=== PATIENT | female | born 1955 | race Caucasian/White ===

== ENCOUNTER 2020-04-17 07:01 | Outpatient (REF) | payer MEDICARE, SELFPAY ==
[2020-04-17 14:04] LABS: Cholesterol 186 mg/dL; HDL Cholesterol 39 mg/dL; LDL Cholesterol Calculated 112 mg/dl; Triglycerides 178 mg/dL
[2020-04-17 14:05] LABS: Alanine Aminotransferase 28 U/L (0-31); Albumin Level 4.2 g/dL (3.5-5.0); Alkaline Phosphatase 85 U/L (39-117); Anion Gap 10 (12-20); Aspartate Amino Transferase 27 U/L (5-31); Bilirubin Total 0.5 mg/dL (0.0-1.0); Blood Urea Nitrogen 18 mg/dL (9-16); Calcium 8.4 mg/dL (8.4-10.2); Carbon Dioxide 32 mmol/L (22-29); Chloride 102 mmol/L (96-108); Estimated Glomerular Filt Rate > 60; Glucose Fasting 88 mg/dL (60-99); Potassium 4.1 mmol/l (3.3-5.1); Sodium 140 mmol/L (135-145); Total Protein 6.6 g/dL (6.5-8.0)
[2020-04-17 14:26] LABS: Vitamin D 25-OH Total 43.8 ng/mL (>30)
[2020-04-17 14:40] LABS: TSH reflex Free T4 2.16 mIU/mL (0.32-4.0)
[2020-04-20 20:26] LABS: Calcium (PTHI) 9.3 mg/dL (8.6-10.4); PTHI 33 pg/mL (14-64)
[2020-04-23 16:42] LABS: N-Telopeptide 30 (see note); NTXCreaRU 71 mg/dL (20-275)
== END 2020-04-17 07:02 | disposition home or self-care (01) ==
LOC: HO.HMGCLDS 07:01
PROVIDERS: PCP Internal Medicine; Visit Provider Internal Medicine
DX: E04.2 Nontoxic multinodular goiter (principal); E78.2 Mixed hyperlipidemia; I10 Essential (primary) hypertension; E55.9 Vitamin D deficiency, unspecified; M85.852 Other specified disorders of bone density and structure, left thigh; Z86.39 Personal history of other endocrine, nutritional and metabolic disease; Z90.09 Acquired absence of other part of head and neck
CPT/HCPCS: 80053; 80061; 82306; 82523; 83970; 84100; 84443

== ENCOUNTER 2020-04-21 10:50 | Outpatient (REF) | payer MEDICARE, SELFPAY ==
--- NOTE | 2020-04-21 10:56 | MM_ITS ---
EXAMINATION: BONE DENSITOMETRY CLINICAL INDICATION: Osteopenia of multiple sites. COMPARISON: Previous BD dated 11/16/2017 and baseline BD dated 03/24/2015 (spine and left hip). Baseline BD dated 11/16/2017 (left forearm radius 33%). TECHNIQUE: Using a [employer] DXA System (software version: 13.1) manufactured by [employer], dual-energy x-ray absorptiometry was performed of the lumbar spine, left hip, and left forearm radius 33%. The images are of good technical quality. Summary results are attached. FINDINGS: AP SPINE L1-L4: Current: BMD 1.138 g/cm2, Z-score 1.1, T-score -0.3, normal, 3.2% decrease from previous, 3.1% increase from baseline (<5% change is not significant). Prior: BMD 1.176 g/cm2. Baseline: BMD 1.104 g/cm2. LEFT FEMUR, NECK: Current: BMD 0.815 g/cm2, Z-score -0.1, T-score -1.6, osteopenia. Prior: BMD 0.837 g/cm2. Baseline: BMD 0.824 g/cm2. LEFT FEMUR, TOTAL: Current: BMD 0.939 g/cm2, Z-score 0.7, T-score -0.5, normal, 2.3% increase from previous, 8.3% increase from baseline (<5% change is not significant). Prior: BMD 0.918 g/cm2. Baseline: BMD 0.867 g/cm2. LEFT FOREARM RADIUS 33%: BMD 0.783 g/cm2, Z-score 0.5, T-score -1.1, osteopenia, 1.6% increase from baseline (<5% change is not significant). Baseline: BMD 0.771 g/cm2. IDENTIFIED RISK FACTORS: Hyperparathyroidism, menopause. HISTORY OF FRACTURE: None listed. MEDICATIONS: Calcium supplements or multivitamin, vitamin D. MM/XR DEXA appendicular skeleton IMPRESSION: 1. DIAGNOSIS: Osteopenia based on the lowest T-score value of -1.6 in the femoral neck applying World Health Organization criteria. 2. 10-YEAR FRACTURE RISK PREDICTION, FRAX: Major osteoporotic fracture (clinical spine, forearm, hip or shoulder) 9.5%. Hip fracture 1.2%. 3. Treatment Recommendations: NOF guidelines recommend consideration for treatment in postmenopausal women and men age 50 and older presenting with the following: -A hip or vertebral (clinical or morphometric) fracture. -T-score less than or equal to -2.5 at the femoral neck or spine after appropriate evaluation to exclude secondary causes. -Low bone mass at the hip or spine and a 10-year fracture probability by FRAX of greater than or equal to 3% for hip fracture or greater than or equal to 20% for major osteoporotic fracture based on the [place] adapted WHO algorithm. 4. Other Recommendations: All treatment decisions require clinical judgment and consideration of individual patient factors, including patient preferences, comorbidities, previous drug use, risk factors not captured in the FRAX model (e.g. frailty, falls, vitamin D deficiency, increased bone turnover, interval significant decline in bone density) and possible under or overestimation of fracture risk by FRAX. Additional medical evaluation for secondary cause of low bone mineral density may be appropriate. FUTURE SCAN RECOMMENDATION: People with diagnosed cases of osteoporosis or at high risk for fracture should have regular bone mineral density tests. For patients eligible for Medicare, routine testing is allowed once every 2 years. The testing frequency can be increased to one year for patients who have rapidly progressing disease, those who are receiving or discontinuing medical therapy to restore bone mass, or have additional risk factors.
== END 2020-04-21 10:51 | disposition home or self-care (01) ==
LOC: HO.MAMMO 10:50
PROVIDERS: Visit Provider Internal Medicine
DX: M85.89 Other specified disorders of bone density and structure, multiple sites (principal); Z86.39 Personal history of other endocrine, nutritional and metabolic disease
CPT/HCPCS: 77081

== ENCOUNTER 2020-08-24 08:56 | Outpatient (REF) | payer MEDICARE, SELFPAY ==
[2020-08-24 11:47] LABS: Alanine Aminotransferase 22 U/L (0-31); Anion Gap 12 (12-20); Aspartate Amino Transferase 24 U/L (5-31); Blood Urea Nitrogen 19 mg/dL (9-16); Calcium 9.2 mg/dL (8.4-10.2); Carbon Dioxide 31 mmol/L (22-29); Chloride 101 mmol/L (96-108); Cholesterol 212 mg/dL; Estimated Glomerular Filt Rate > 60; Glucose Fasting 91 mg/dL (60-99); HDL Cholesterol 43 mg/dL; LDL Cholesterol Calculated 125 mg/dl; Potassium 3.8 mmol/L (3.3-5.1); Sodium 140 mmol/L (135-145); Triglycerides 221 mg/dL
== END 2020-08-24 08:57 | disposition home or self-care (01) ==
LOC: HO.HMGCLDS 08:56
PROVIDERS: PCP Internal Medicine; Visit Provider Internal Medicine
DX: E78.5 Hyperlipidemia, unspecified (principal); I10 Essential (primary) hypertension
CPT/HCPCS: 36415; 80048; 80061; 84450; 84460

== ENCOUNTER 2021-03-05 08:59 | Outpatient (REF) | payer MEDICARE, SELFPAY ==
[2021-03-05 12:03] LABS: Alanine Aminotransferase 27 U/L (0-31); Aspartate Amino Transferase 24 U/L (5-31); Cholesterol 201 mg/dL; HDL Cholesterol 47 mg/dL; LDL Cholesterol Calculated 131 mg/dl; Triglycerides 117 mg/dL
== END 2021-03-05 09:00 | disposition home or self-care (01) ==
LOC: HO.HMGCLDS 08:59
PROVIDERS: PCP Internal Medicine; Visit Provider Internal Medicine
DX: E78.2 Mixed hyperlipidemia (principal)
CPT/HCPCS: 36415; 80061; 84450; 84460

== ENCOUNTER 2021-09-02 08:04 | Outpatient (REF) | payer MEDICARE, SELFPAY ==
[2021-09-02 12:04] LABS: Alanine Aminotransferase 25 U/L (0-31); Anion Gap 12 (12-20); Aspartate Amino Transferase 23 U/L (5-31); Blood Urea Nitrogen 17 mg/dL (9-16); Calcium 9.6 mg/dL (8.4-10.2); Carbon Dioxide 28 mmol/L (22-29); Chloride 102 mmol/L (96-108); Cholesterol 197 mg/dL; Estimated Glomerular Filt Rate > 60; Glucose Fasting 99 mg/dL (60-99); HDL Cholesterol 44 mg/dL; LDL Cholesterol Calculated 123 mg/dl; Potassium 4.1 mmol/L (3.3-5.1); Sodium 138 mmol/L (135-145); Triglycerides 151 mg/dL
[2021-09-02 14:57] LABS: Vitamin D 25-OH Total 51.4 ng/mL (>30)
== END 2021-09-02 08:05 | disposition home or self-care (01) ==
LOC: HO.HMGCLDS 08:04
PROVIDERS: PCP Internal Medicine; Visit Provider Internal Medicine
DX: E78.2 Mixed hyperlipidemia (principal); I10 Essential (primary) hypertension; M85.80 Other specified disorders of bone density and structure, unspecified site; Z78.0 Asymptomatic menopausal state
CPT/HCPCS: 36415; 80048; 80061; 82306; 84450; 84460

== ENCOUNTER 2022-03-22 06:49 | Outpatient (REF) | payer MEDICARE, SELFPAY ==
[2022-03-22 11:43] LABS: Alanine Aminotransferase 17 U/L (0-31); Anion Gap 13 (12-20); Aspartate Amino Transferase 21 U/L (5-31); Blood Urea Nitrogen 13 mg/dL (9-16); Calcium 9.4 mg/dL (8.4-10.2); Carbon Dioxide 28 mmol/L (22-29); Chloride 101 mmol/L (96-108); Cholesterol 209 mg/dL; Estimated Glomerular Filt Rate > 60; Glucose Fasting 97 mg/dL (60-99); HDL Cholesterol 46 mg/dL; LDL Cholesterol Calculated 130 mg/dl; Sodium 138 mmol/L (135-145); Triglycerides 168 mg/dL
== END 2022-03-22 06:50 | disposition home or self-care (01) ==
LOC: HO.HMGCLDS 06:49
PROVIDERS: PCP Internal Medicine; Visit Provider Internal Medicine
DX: E78.2 Mixed hyperlipidemia (principal); I10 Essential (primary) hypertension
CPT/HCPCS: 36415; 80048; 80061; 84450; 84460

== ENCOUNTER 2022-04-22 12:53 | Outpatient (REF) | payer MEDICARE, SELFPAY ==
--- NOTE | ~2022-04-22 | MM_ITS ---
EXAMINATION: BONE DENSITOMETRY CLINICAL INDICATION: Osteopenia. COMPARISON: Previous BD dated 04/21/2020 and baseline BD dated 03/24/2015, spine and left hip; 11/16/2017, left forearm radius 33%. TECHNIQUE: Using a [employer] DXA System (software version: 13.1) manufactured by [email or web address], dual-energy x-ray absorptiometry was performed of the lumbar spine, left hip, and left forearm radius 33%. The images are of good technical quality. Summary results are attached. FINDINGS: AP SPINE L1-L4 (excluding L3): The data of L1-L4 has been changed to exclude the L3 vertebral body, because degenerative changes at this level may cause overestimation of lumbar spine density. Current: BMD 1.098 g/cm2, Z-score 0.9, T-score -0.6, normal, 0.7% decrease from previous, 4.1% increase from baseline (<5% change is not significant). Prior: BMD 1.106 g/cm2. Baseline: BMD 1.055 g/cm2. LEFT FEMUR, NECK: Current: BMD 0.759 g/cm2, Z-score -0.4, T-score -2.0, osteopenia. Prior: BMD 0.815 g/cm2. Baseline: BMD 0.824 g/cm2. LEFT FEMUR, TOTAL: Current: BMD 0.842 g/cm2, Z-score 0.0, T-score -1.3, osteopenia, 10.3% decrease from previous, 2.9% decrease from baseline (<5% change is not significant). Prior: BMD 0.939 g/cm2. Baseline: BMD 0.867 g/cm2. LEFT FOREARM RADIUS 33%: BMD 0.810 g/cm2, Z-score 1.0, T-score -0.7, normal, 3.4% increase from previous, 5.1% increase from baseline (<5% change is not significant). Prior: BMD 0.783 g/cm2. Baseline (11/16/2017): BMD 0.771 g/cm2. IDENTIFIED RISK FACTORS: Hyperparathyroidism, menopause. HISTORY OF FRACTURE: None listed. MEDICATIONS: Calcium supplements or multivitamin, vitamin D. MM/XR DEXA appendicular skeleton IMPRESSION: 1. DIAGNOSIS: Osteopenia based on the lowest T-score value of -2.0 in the femoral neck applying World Health Organization criteria. 2. 10-YEAR FRACTURE RISK PREDICTION, FRAX: Major osteoporotic fracture (clinical spine, forearm, hip or shoulder) 11.6%. Hip fracture 2.1%. 3. Treatment Recommendations: NOF guidelines recommend consideration for treatment in postmenopausal women and men age 50 and older presenting with the following: -A hip or vertebral (clinical or morphometric) fracture. -T-score less than or equal to -2.5 at the femoral neck or spine after appropriate evaluation to exclude secondary causes. -Low bone mass at the hip or spine and a 10-year fracture probability by FRAX of greater than or equal to 3% for hip fracture or greater than or equal to 20% for major osteoporotic fracture based on the [place] adapted WHO algorithm. 4. Other Recommendations: All treatment decisions require clinical judgment and consideration of individual patient factors, including patient preferences, comorbidities, previous drug use, risk factors not captured in the FRAX model (e.g. frailty, falls, vitamin D deficiency, increased bone turnover, interval significant decline in bone density) and possible under or overestimation of fracture risk by FRAX. Additional medical evaluation for secondary cause of low bone mineral density may be appropriate. FUTURE SCAN RECOMMENDATION: People with diagnosed cases of osteoporosis or at high risk for fracture should have regular bone mineral density tests. For patients eligible for Medicare, routine testing is allowed once every 2 years. The testing frequency can be increased to one year for patients who have rapidly progressing disease, those who are receiving or discontinuing medical therapy to restore bone mass, or have additional risk factors.
== END 2022-04-22 12:54 | disposition home or self-care (01) ==
LOC: HO.MAMMO 12:53
PROVIDERS: PCP Internal Medicine; Visit Provider Internal Medicine
DX: Z13.820 Encounter for screening for osteoporosis (principal); M85.852 Other specified disorders of bone density and structure, left thigh; Z78.0 Asymptomatic menopausal state
CPT/HCPCS: 77081

== ENCOUNTER 2022-08-22 08:44 | Outpatient (REF) | payer MEDICARE, SELFPAY ==
[2022-08-22 12:43] LABS: Alanine Aminotransferase 21 U/L (0-31); Anion Gap 12 (12-20); Aspartate Amino Transferase 22 U/L (5-31); Blood Urea Nitrogen 14 mg/dL (9-16); Calcium 9.1 mg/dL (8.4-10.2); Carbon Dioxide 29 mmol/L (22-29); Chloride 103 mmol/L (96-108); Cholesterol 203 mg/dL; Estimated Glomerular Filt Rate > 60; Glucose Fasting 100 mg/dL (60-99); HDL Cholesterol 43 mg/dL; LDL Cholesterol Calculated 123 mg/dl; Sodium 140 mmol/L (135-145); Triglycerides 185 mg/dL; Vitamin D 25-OH Total 50.9 ng/mL (>30)
== END 2022-08-22 08:45 | disposition home or self-care (01) ==
LOC: HO.HMGCLDS 08:44
PROVIDERS: PCP Internal Medicine; Visit Provider Internal Medicine
DX: E78.2 Mixed hyperlipidemia (principal); M85.80 Other specified disorders of bone density and structure, unspecified site; Z78.0 Asymptomatic menopausal state; I10 Essential (primary) hypertension
CPT/HCPCS: 36415; 80048; 80061; 82306; 84450; 84460

== ENCOUNTER 2023-02-20 07:42 | Outpatient (REF) | payer MEDICARE, SELFPAY ==
[2023-02-20 12:03] LABS: Alanine Aminotransferase 19 U/L (0-31); Anion Gap 12 (12-20); Aspartate Amino Transferase 23 U/L (5-31); Blood Urea Nitrogen 14 mg/dL (9-16); Calcium 9.7 mg/dL (8.4-10.2); Carbon Dioxide 29 mmol/L (22-29); Chloride 104 mmol/L (96-108); Cholesterol 198 mg/dL (<200); Estimated Glomerular Filt Rate > 60; Glucose Fasting 103 mg/dL (60-99); HDL Cholesterol 44 mg/dL (>40); LDL Cholesterol Calculated 116 mg/dL (<100); Potassium 4.7 mmol/L (3.3-5.1); Sodium 140 mmol/L (135-145); Triglycerides 194 mg/dL (<150)
== END 2023-02-20 07:43 | disposition home or self-care (01) ==
LOC: HO.HMGCLDS 07:42
PROVIDERS: PCP Internal Medicine; Visit Provider Internal Medicine
DX: E78.2 Mixed hyperlipidemia (principal); I10 Essential (primary) hypertension
CPT/HCPCS: 36415; 80048; 80061; 84450; 84460

== ENCOUNTER 2023-02-22 10:40 | Outpatient (AMB) | payer MEDICARE, SELFPAY ==
--- NOTE | 2023-02-22 10:53 | A.OFFPC_ITS ---
Vital Signs 02/22/23 10:59 Height 5 ft 5 in Weight 163 lb BMI 27.1 BP 136/82 Blood Pressure Location Rt brachial Position Sitting Pulse 80 Pulse Source Pulse Oximeter Pulse Oximetry (%) 98 Intake Visit Reasons: 6m follow up after fasting labs Intake Note: Pt is here today for her 6 mo. f/u labs Allergies amoxicillin Allergy (Unknown, Verified 02/22/23 11:13) hives lisinopril Adverse Reaction (Unknown, Verified 02/22/23 11:13) cough Medication List - Last Reconciled 02/22/23 by Mary Wood MD atenolol 50 mg PO DAILY atorvastatin 10 mg PO DAILY calcium citrate 200 mg PO DAILY cholecalciferol (vitamin D3) 50 mcg PO DAILY fluoxetine 20 mg PO DAILY hydroxyzine HCl 10 mg PO BID PRN multivit with min-folic acid 200 mcg (Adult Multivitamin Gummies) tabs PO Tobacco use date assessed: 08/24/22 Fall risk assessment: No Falls in past year Last assessed Fall Risk: 02/22/23 Dental Screening Dental Screen Date: 02/22/23 Did you have a dental visit in the last 12 months?: Yes Did you have a dental problem in the last 6 months where you did not have access to dental care?: No Was dental information given to patient?: Patient has dentist HPI 6m follow up after fasting labs HPI Details 67-year-old lady here today for follow-u p on her hypertension, currently on atenolol 50 mg daily; and follow-up on her dyslipidemia, currently on atorvastatin 10 mg daily. She has been compliant with taking her medications , has been following recommended diet and has been trying to stay active. Latest fasting labs done showed lipids within normal limit with fasting glucose in the prediabetic range and blood pressure is better controlled on higher dose of atenolol. Has been feeling well, with no new complaints at present time. FORMERLY [facility] Medical History Anxiety and depression History of primary hyperparathyroidism Mixed dyslipidemia History of invasive breast cancer Osteopenia Menopause Essential hypertension Nontoxic multinodular goiter Surgical History Hx of colonoscopy History of partial thyroidectomy History of parathyroidectomy Family History Father Skin cancer HTN (hypertension) Diabetes mellitus Mother Stroke Brother Depression Brother No problems noted. Sister No problems noted. Sister No problems noted. Son No problems noted. Daughter No problems noted. Social History Housing: House Alcohol intake: never Patient Tobacco Use Status: Never used Tobacco e-Cigarette/Vaping Use: Never Used Second Hand Smoke Exposure: No Current occupational status: retired Cognitive needs: No Hearing needs: No Vision needs: Yes Questionnaire PHQ-9 Over the last 2 weeks, how often have you been bothered by any of the following problems? Depression Screening Interpretation: Negative Source: Developed by Drs. Jarvis Sagastume, Mary Lara, Ric Alberts and colleagues, with an educational tom from [employer]. Thrive Questionnaire Date Thrive assessed: 08/24/22 HEATHER-7 AMB Questionnaire HEATHER-7 Date HEATHER - 7 assessed: 08/24/22 Source: Developed by Drs. Jarvis Sagastume, Mary Lara, Ric Alberts and colleagues, with an educational tom from [employer]. Review of Systems Const Denies body aches, Denies fatigue, Denies fever(s), Denies headache(s) and Denies weakness Eyes Details: utd with eye exam , sees Dr Sewell Denies change in vision, Denies eye discharge and Denies itchy eyes ENT Denies dizziness, Denies headache(s), Denies nasal congestion, Denies nasal discharge and Denies sore throat Card Denies chest pain, Denies lightheadedness, Denies palpitations and Denies dyspnea Resp Denies chest congestion, Denies cough, Denies dyspnea and Denies wheezing GI Denies abdominal pain, Denies change in bowel habits and Denies heartburn Denies urinary frequency, Denies dysuria and Denies urinary urgency Musc Denies back pain, Denies myalgias, Denies arthralgias and Denies muscle weakness [facility] Details[facility] , due again in 02/2023 Neuro Denies dizziness, Denies headache(s) and Denies weakness Psych Reports no additional complaints Endo Denies fatigue, Denies polydipsia, Denies polyuria and Denies palpitations Paddy/Lymph Reports no additional complaints Aller/Immun Denies itchy eyes, Denies seasonal rhinorrhea and Denies wheezing Physical exam (Primary Care) Vital Signs: Last Vital Signs Pulse 80 02/22/23 10:59 BP 136/82 02/22/23 10:59 Pulse Ox 98 02/22/23 10:59 BMI result Body Mass Index 27.1 Tobacco/Smoking Status: Tobacco use Status Tobacco use date assessed 08/24/22 02/22/23 10:55 Patient Tobacco Use Status Never used Tobacco 02/22/23 10:55 e-Cigarette/Vaping Use Never Used 02/22/23 10:55 Depression Screening Interpretation: Negative Thrive Assessment: Date of Thrive Assessment Date Thrive assessed 08/24/22 02/22/23 10:55 Const Other: Alert oriented x3, no acute distress noted, ambulatory with normal gait Orientation/consciousness: patient oriented x3 HENMT Head: Yes normocephalic Ears: Abnormal EAC present excessive cerumen bilateral General nose exam: Normal external nose present and No nasal discharge present Face and sinus: Yes face symmetric Mouth: Normal oral and palatal mucosa present, oropharynx normal and moist mucous membranes Eyes General: appearance normal, both eyes and all related structures Neck Neck: Yes full ROM, Yes no lymphadenopathy and Yes supple Chest Breast/axilla palpation: normal palpation of the breasts and normal palpation of the axillae Resp Auscultation: clear to auscultation bilaterally Cardio Other: S1-S2 present regular rate and rhythm GI Other: Normal bowel sounds, soft, nontender, no mass palpated General: Yes no CVA tenderness and Yes deferred Back/Spine/Pelvis Back: no CVA tenderness and No back tenderness Skin General skin exam: no rashes or lesions noted Neuro General: patient oriented x3, gait normal, tone normal, moves all extremities, Normal light touch and pain sensation, no focal motor deficits and CN's II-XI intact bilaterally Extrem General: Yes full ROM, Yes no joint enlargement, Yes no pedal edema, Yes no calf tenderness and Yes normal gait Psych Appearance: grossly normal and well kempt Mental Status: mental status grossly normal Speech and movement: Normal speech and movement present Affect: normal affect Attitude: cooperative Thought process: Normal thought process present Thought content: Normal thought content present Results Reviewed Results Reviewed: ENTERED: 02/20/236427 [facility] DR: ORDERED: Met Prof Fast, AST, ALT, Lipid Panel Test Result Flag Reference Site Sodium 140 135-145 mmol/L Potassium 4.7 3.3-5.1 mmol/L CL 104 96-108 mmol/L CO2 29 22-29 mmol/L Gap 12 12-20 BUN 14 9-16 mg/dL Creat 0.77 0.5-1.4 mg/dL EGFR > 60 NOTE: For -[place] individuals, multiply the result by 1.210. Chronic Kidney Disease: Estimated GFR < 60 mL/min/1.73m2 Severe Kidney Disease: Estimated GFR < 15 mL/min/1.73m2 FBS 103 H 60-99 mg/dL A fasting glucose from 100-125 mg/dl is considered impaired (pre-diabetes). CA 9.7 # 8.4-10.2 mg/dL AST (GOT) 23 5-31 U/L ALT (GPT) 19 0-31 U/L Triglyceride 194 H <150 mg/dL Desirable Triglyceride: less than 150 mg/dL Borderline High Triglyceride 150-199 mg/dL High Triglyceride: 200-499 mg/dL Very High Triglyceride: greater than or equal to 5OO mg/dL Cholesterol 198 <200 mg/dL Desirable Cholesterol: less than 200 mg/dL Borderline High Cholesterol: 200-239 mg/dL High Cholesterol: greater than 239 mg/dL LDL Calculated 116 H <100 mg/dL Desirable LDL: less than 100 mg/dL Near Optimal/Above Optimal LDL: 110-129 mg/dL Borderline High LDL: 130-159 mg/dL High LDL: 160-189 mg/dL Very High LDL: greater than or equal to 190 mg/dL HDL 44 >40 mg/dL Desirable HDL: greater than 40 mg/dL Assessment and Plan Assessment & Plan (1) Mixed dyslipidemia: Code(s): E78.2 - Mixed hyperlipidemia Plan: Reviewed recent fasting lipid profile with patient with levels . Continue with atorvastatin 10 mg daily , in addition to adherence to low-cholesterol diet and regular exercise, at least 30 minutes 3 to 4 times a week. Advised patient to make healthy food choices, eat more fruits, vegetables, whole grains, wild caught fish and low-fat dairy. Limit amount of meat and fried or fatty food products, as well as processed foods and fast foods. Follow-up scheduled with repeat fasting lipid panel in 6 months. (2) Essential hypertension: Code(s): I10 - Essential (primary) hypertension Plan: Blood pressure at goal of less than 130/80. Continue with current medication. Reinforced importance of following a low sodium diet, getting regular exercise, and lowering stress levels. (3) Anxiety and depression: Code(s): F41.9 - Anxiety disorder, unspecified; F32.A - Depression, unspecified Plan: Stable and controlled on fluoxetine 20 mg daily and takes hydroxyzine as needed for anxiety attack (4) Osteopenia: Code(s): M85.80 - Other specified disorders of bone density and structure, unspecified site Qualifiers: Osteopenia location: hip Laterality: left Qualified Code(s): M85.852 - Other specified disorders of bone density and structure, left thigh Plan: Followed by Dr. Bradford currently on calcium citrate and cholecalciferol supplement. Encouraged to do regular weight-bearing exercise. Up-to-date with her DEXA scan done last year (5) Nontoxic multinodular goiter: Comment: followed by [facility] [place] end[place] Code(s): E04.2 - Nontoxic multinodular goiter Plan: Followed by endocrine clinic Orders: Orders Hemoglobin A1c 08/11/23 E04.2 - Nontoxic multinodular goiter, E78.2 - Mixed hyperlipidemia, F32.A - Depression, unspecified, F41.9 - Anxiety disorder, unspecified, I10 - Essential (primary) hypertension, M85.80 - Other specified disorders of bone density and structure, unspecified site, Z78.0 - Asymptomatic menopausal state Basic Metabolic Panel Fasting 08/11/23 E04.2 - Nontoxic multinodular goiter, E78.2 - Mixed hyperlipidemia, F32.A - Depression, unspecified, F41.9 - Anxiety disorder, unspecified, I10 - Essential (primary) hypertension, M85.80 - Other specified disorders of bone density and structure, unspecified site, Z78.0 - Asymptomatic menopausal state Lipid Panel 08/11/23 E04.2 - Nontoxic multinodular goiter, E78.2 - Mixed hyperlipidemia, F32.A - Depression, unspecified, F41.9 - Anxiety disorder, unspecified, I10 - Essential (primary) hypertension, M85.80 - Other specified disorders of bone density and structure, unspecified site, Z78.0 - Asymptomatic menopausal state Alanine Aminotransferase 08/11/23 E04.2 - Nontoxic multinodular goiter, E78.2 - Mixed hyperlipidemia, F32.A - Depression, unspecified, F41.9 - Anxiety disorder, unspecified, I10 - Essential (primary) hypertension, M85.80 - Other specified disorders of bone density and structure, unspecified site, Z78.0 - Asymptomatic menopausal state Aspartate Amino Transferase 08/11/23 E04.2 - Nontoxic multinodular goiter, E78.2 - Mixed hyperlipidemia, F32.A - Depression, unspecified, F41.9 - Anxiety disorder, unspecified, I10 - Essential (primary) hypertension, M85.80 - Other specified disorders of bone density and structure, unspecified site, Z78.0 - Asymptomatic menopausal state Vitamin D 25-OH Total 08/11/23 E04.2 - Nontoxic multinodular goiter, E78.2 - Mixed hyperlipidemia, F32.A - Depression, unspecified, F41.9 - Anxiety disorder, unspecified, I10 - Essential (primary) hypertension, M85.80 - Other specified disorders of bone density and structure, unspecified site, Z78.0 - Asymptomatic menopausal state Coding Level of Care Code Est Pt Level 4 (90742) Diagnoses Mixed dyslipidemia E78.2 Essential hypertension I10 Anxiety and depression F41.9; F32.A Osteopenia of left hip M85.852 Osteopenia location: hip Laterality: left Nontoxic multinodular goiter E04.2
[2023-02-22 10:59] VITALS: BP 136/82; PULSE 80; O2SAT 98; BMI 27.1
== END 2023-02-22 12:03 | disposition home or self-care (01) ==
PROVIDERS: Visit Provider Internal Medicine
DX: E78.2 Mixed hyperlipidemia (principal); I10 Essential (primary) hypertension; F41.9 Anxiety disorder, unspecified; E04.2 Nontoxic multinodular goiter; F32.A Depression, unspecified; M85.852 Other specified disorders of bone density and structure, left thigh
CPT/HCPCS: 99214

== ENCOUNTER → 2023-06-13 10:09 | Outpatient (BNVA) | payer MEDICARE, SELFPAY | PROVIDERS: PCP Internal Medicine; Visit Provider Nurse Practitioner ==

== ENCOUNTER 2023-08-31 10:44 | Outpatient (AMB) | payer MEDICARE, SELFPAY ==
--- NOTE | 2023-08-31 11:05 | MHC.PC.OV ---
Vital Signs 08/31/23 11:16 Height 5 ft 5 in Weight 163 lb BMI 27.1 BP 138/80 Blood Pressure Location Lt brachial Position Sitting Pulse 59 Pulse Source Pulse Oximeter Pulse Oximetry (%) 99 Oxygen Delivery Method Room Air Intake Visit Reasons: pe Intake Note: Pt is here today for her PE bone density scan 04/22/22, mammogram 10108/02, colonoscopy 05/27/16 Allergies amoxicillin Allergy (Unknown, Verified 08/31/23 11:42) hives lisinopril Adverse Reaction (Unknown, Verified 08/31/23 11:42) cough Medication List - Last Reconciled 08/31/23 by Mary Wood MD atenolol 50 mg PO DAILY atorvastatin 10 mg PO DAILY calcium citrate 200 mg PO DAILY cholecalciferol (vitamin D3) 50 mcg PO DAILY fluoxetine 20 mg PO DAILY multivit with min-folic acid 200 mcg (Adult Multivitamin Gummies) tabs PO Tobacco use date assessed: 08/31/23 Fall risk assessment: No Falls in past year Last assessed Fall Risk: 08/31/23 Dental Screening Dental Screen Date: 08/31/23 Did you have a dental visit in the last 12 months?: Yes Did you have a dental problem in the last 6 months where you did not have access to dental care?: Yes Was dental information given to patient?: Patient has dentist HPI pe HPI Details 68 year-old lady here today for her physical exam. She has dyslipidemia, hypertension, mixed anxiety depression, osteopenia,, stable controlled present treatment, has been feeling well, compliant with taking her medications and stays active, exercises regularly. She is up-to-date with her bone density scan done 04/22/22 which showed presence of osteopenia in left femur left femoral neck, normal in lumbar spine. She is currently being followed by Dr Cazares, with the WHO FRAX fracture risk assessment tool calculates 10 year probability of hip fracture at 2.1% and major osteoporotic fracture of hip spine shoulder wrist at 11.6%. The current recommendation by the National Osteoporosis Foundation is for pharmacologic treatment if the 10 year risk of hip fracture is more than 3% and or if the risk of any major osteoporotic fracture is equal to or greater than 20%. At present patient was advised to continue taking calcium citrate and vitamin-D supplements together with regular weight-bearing exercise. She has an appointment for repeat bone density scan at [facility] on of 03/22/2024 She has history of triple negative left breast cancer with no clinical evidence of disease recurrence, followed at [facility], up-to-date with her screening mammogram done at done at [facility]. Last colonoscopy screening was done at [facility] in 2018, due for recheck in 5 years. She already has been seen by [facility] and is scheduled for her colonoscopy on 10/23/[address] Matias. Denies any abdominal pain ordered any GI concerns at present. She has been diagnosed to have primary hyperparathyroidism in 2014 underwent parathyroidectomy in 2021, monitored yearly by endocrine clinic, history of lobectomy of thyroid, clinically euthyroid. [facility] Medical History Anxiety and depression History of primary hyperparathyroidism Mixed dyslipidemia History of invasive breast cancer Osteopenia Menopause Essential hypertension Nontoxic multinodular goiter Surgical History Hx of colonoscopy History of partial thyroidectomy History of parathyroidectomy Family History Father Skin cancer HTN (hypertension) Diabetes mellitus Mother Stroke Brother Depression Brother No problems noted. Sister No problems noted. Sister No problems noted. Son No problems noted. Daughter No problems noted. Social History Housing: House Alcohol intake: never Patient Tobacco Use Status: Never used Tobacco e-Cigarette/Vaping Use: Never Used Second Hand Smoke Exposure: No Current occupational status: retired Cognitive needs: No Hearing needs: No Vision needs: Yes Questionnaire PHQ-9 Over the last 2 weeks, how often have you been bothered by any of the following problems? 1. Little interest or pleasure in doing things: not at all 2. Feeling down, depressed, or hopeless: not at all 3. Trouble falling or staying asleep, or sleeping too much: several days 4. Feeling tired or having little energy: not at all 5. Poor appetite or overeating: not at all 6. Feeling bad about yourself - or that you are a failure or have let yourself or your family down: not at all 7. Trouble concentrating on things, such as reading the newspaper or watching television: not at all 8. Moving or speaking so slowly that other people could have noticed. Or the opposite - being so fidgety or restless that you have been moving around a lot more than usual: not at all 9. Thoughts that you would be better off or of hurting yourself in some way: not at all Total score: 1 Depression Screening Interpretation: Negative Depression Screening Done: Yes 35726 - PHQ-9 Billing: Yes Source: Developed by Drs. Jarvis Sagastume, Mary Lara, Ric Alberts and colleagues, with an educational tom from [employer]. Thrive Questionnaire Date Thrive assessed: 08/31/23 I am a: Patient What is your living situation today?: I have a steady place to live Within the past 12 months, did the food you bought not last and you didn't have the money to get more?: Never true Within the past 12 months, did you worry whether your food would run out before you got money to buy more?: Never true Do you have trouble paying for medicines?: No Do you have trouble getting transportation to medical appointments?: No Do you have trouble paying your heating and electricity bill?: No Do you have trouble taking care of your child, family member or friend?: No Do you have trouble with day-to-day activities such as bathing, preparing meals, shopping, managing finances, etc.?: No Are you currently unemployed and looking for a job?: No Are you interested in more education?: No THRIVE Score: 0 AUDIT C Alcohol Use Questionnaire (AUDIT-C) 1. How often do you have a drink containing alcohol?: Never Total Score: 0 HEATHER-7 AMB Questionnaire HEATHER-7 Date HEATHER - 7 assessed: 08/31/23 Feeling nervous, anxious, or on edge: 0 = Not at all Not being able to stop or control worryin = Not at all Worrying too much about different things: 0 = Not at all Trouble relaxin = Not at all Being so restless that it is hard to sit still: 0 = Not at all Becoming easily annoyed or irritable: 0 = Not at all Feeling afraid as if something awful might happen: 0 = Not at all Total HEATHER-7 score (0-4 normal; 5-9 mild; 10-14 moderate; 15-21 severe): 0 Source: Developed by Drs. Jarvis Sagastume, Mary Lara, Ric Alberts and colleagues, with an educational tom from [employer]. HEATHER-7 Assessment Billing HEATHER-7 Assessment Tool: HEATHER-7 Assessment 11036 Review of Systems Const Denies body aches, Denies fever(s), Denies headache(s) and Denies lethargy Eyes Details: Sees Dr. Sewell for her regular eye exam, has appointment next Denies change in vision ENT Denies headache(s), Denies nasal congestion, Denies nasal discharge and Denies sore throat Card Details: Followed at [facility] breast clinic , for her mammogram and follow-up regarding history of breast cancer Denies chest pain, Denies lightheadedness and Denies dyspnea Resp Denies cough and Denies dyspnea GI Denies abdominal pain, Denies melena, Denies hematochezia, Denies change in bowel habits and Denies heartburn Denies urinary frequency, Denies dysuria and Denies urinary urgency Musc Denies back pain, Denies myalgias, Denies arthralgias and Denies muscle weakness Skin/Breast Details: goes julia [facility] for her mammogram Denies dry skin and Denies rash Neuro Reports no additional complaints and Denies headache(s) Psych Reports no additional complaints Endo Details: Has an appointment for follow-up with Dr. Bradford for her thyroid and osteopenia Reports no additional complaints and Denies polydipsia Paddy/Lymph Reports no additional complaints Aller/Immun Denies seasonal rhinorrhea Physical exam (Primary Care) Vital Signs: Last Vital Signs Pulse 59 08/31/23 11:16 BP 138/80 08/31/23 11:16 Pulse Ox 99 08/31/23 11:16 Oxygen Delivery Method Room Air 08/31/23 11:16 BMI result Body Mass Index 27.1 Tobacco/Smoking Status: Tobacco use Status Tobacco use date assessed 08/31/23 08/31/23 11:06 Patient Tobacco Use Status Never used Tobacco 08/31/23 11:06 e-Cigarette/Vaping Use Never Used 08/31/23 11:06 Depression Screening Interpretation: Negative Thrive Assessment: Date of Thrive Assessment Date Thrive assessed 08/24/22 08/31/23 11:06 Const Other: Alert oriented x3, no acute distress noted, ambulatory with normal gait General: healthy appearing, no acute distress and alert Nutritional Appearance: underweight Orientation/consciousness: patient oriented x3 [facility] Head: Yes normocephalic Ears: external ears normal General nose exam: Normal external nose present Face and sinus: Yes face symmetric Mouth: Normal oral and palatal mucosa present, oropharynx normal and moist mucous membranes Eyes General: appearance normal, both eyes and all related structures Neck Neck: Yes full ROM, Yes no lymphadenopathy and Yes supple Chest Breast/axilla palpation: normal palpation of the breasts and normal palpation of the axillae Resp Auscultation: clear to auscultation bilaterally Cardio Other: S1-S2 present regular rate and rhythm GI Other: Normal bowel sounds, soft, nontender, no mass palpated General: Yes no CVA tenderness and Yes deferred Back/Spine/Pelvis Back: no CVA tenderness and No back tenderness Skin General skin exam: no rashes or lesions noted Neuro General: patient oriented x3, gait normal, tone normal, moves all extremities, Normal light touch and pain sensation, no focal motor deficits and CN's II-XI intact bilaterally Extrem General: Yes full ROM, Yes no joint enlargement, Yes no pedal edema, Yes no calf tenderness and Yes normal gait Psych Appearance: grossly normal and well kempt Mental Status: mental status grossly normal Speech and movement: Normal speech and movement present Affect: normal affect Attitude: cooperative Thought process: Normal thought process present Thought content: Normal thought content present Assessment and Plan Assessment & Plan (1) Annual visit for general adult medical examination with abnormal findings: Code(s): Z00.01 - Encounter for general adult medical examination with abnormal findings Plan: She is up-to-date with her bone density scan done 04/22/22 which showed presence of osteopenia in left femur left femoral neck, normal in lumbar spine. She is currently being followed by Dr Cazares, with the WHO FRAX fracture risk assessment tool calculates 10 year probability of hip fracture at 2.1% and major osteoporotic fracture of hip spine shoulder wrist at 11.6%. The current recommendation by the National Osteoporosis Foundation is for pharmacologic treatment if the 10 year risk of hip fracture is more than 3% and or if the risk of any major osteoporotic fracture is equal to or greater than 20%. At present patient was advised to continue taking calcium citrate and vitamin-D supplements together with regular weight-bearing exercise. She has an appointment for repeat bone density scan at [facility] on of 03/22/2024 She has history of triple negative left breast cancer with no clinical evidence of disease recurrence, followed at [facility], up-to-date with her screening mammogram done at done at [facility]. Last colonoscopy screening was done at [facility] in 2017, due for recheck in 5 years. She already has been seen by [facility] and is scheduled for her colonoscopy on 10/23/[address] Matias. Denies any abdominal pain ordered any GI concerns at present. She has been diagnosed to have primary hyperparathyroidism in 2014 underwent parathyroidectomy in 2021, monitored yearly by endocrine clinic, history of lobectomy of thyroid, clinically euthyroid. Up-to-date with her eye exam, sees Dr. Sewell. Up-to-date with all her vaccinations but does not want to get COVID booster (2) Tubular adenoma of colon: Comment: 2016 scope at [facility] Code(s): D12.6 - Benign neoplasm of colon, unspecified Plan: Has appointment with Dr. Matias for repeat colonoscopy in March 2024 (3) Anxiety and depression: Code(s): F41.9 - Anxiety disorder, unspecified; F32.A - Depression, unspecified Plan: Stable controlled on present treatment, continued on fluoxetine 20 mg daily (4) Mixed dyslipidemia: Code(s): E78.2 - Mixed hyperlipidemia Plan: Reminded patient to get her fasting labs done. In the meantime continue with atorvastatin 10 mg daily in addition to adherence to healthy eating habits and regular exercise. (5) Osteopenia: Code(s): M85.80 - Other specified disorders of bone density and structure, unspecified site Qualifiers: Laterality: left Osteopenia location: hip Qualified Code(s): M85.852 - Other specified disorders of bone density and structure, left thigh Plan: Continue with calcium citrate, vitamin-D 3 supplement, regular weight-bearing exercise, followed by endocrine clinic in [facility], due for repeat bone density scan this year (6) Essential hypertension: Code(s): I10 - Essential (primary) hypertension Plan: Continue with atenolol 50 mg daily. Reinforced importance of following a low sodium diet, getting regular exercise, and lowering stress levels. (7) Nontoxic multinodular goiter: Comment: followed by [facility] Code(s): E04.2 - Nontoxic multinodular goiter Plan: Ordered TSH and free T4 Orders: Orders Hemoglobin and Hematocrit 08/31/23 D12.6 - Benign neoplasm of colon, unspecified, E04.2 - Nontoxic multinodular goiter, E78.2 - Mixed hyperlipidemia, F32.A - Depression, unspecified, F41.9 - Anxiety disorder, unspecified, I10 - Essential (primary) hypertension, M85.80 - Other specified disorders of bone density and structure, unspecified site Thyroid Stimulating Hormone 08/31/23 E04.2 - Nontoxic multinodular goiter Free T4 (Free Thyroxine) 08/31/23 E04.2 - Nontoxic multinodular goiter Coding Level of Care Code Est Pt Prev Care >65y(94172) Diagnoses Annual visit for general adult medical examination with abnormal findings Z00.01 Tubular adenoma of colon D12.6 Anxiety and depression F41.9; F32.A Mixed dyslipidemia E78.2 Osteopenia of left hip M85.852 Laterality: left Osteopenia location: hip Essential hypertension I10 Nontoxic multinodular goiter E04.2 Additional Codes HEATHER-7 Assessment Billing - HEATHER-7 Assessment Tool: HEATHER-7 Assessment 38243 ([id number])
[2023-08-31 11:16] VITALS: BP 138/80; PULSE 59; O2SAT 99; BMI 27.1
== END 2023-08-31 11:58 | disposition home or self-care (01) ==
PROVIDERS: Visit Provider Internal Medicine
DX: Z00.01 Encounter for general adult medical examination with abnormal findings (principal); D12.6 Benign neoplasm of colon, unspecified; F41.9 Anxiety disorder, unspecified; F32.A Depression, unspecified; E78.2 Mixed hyperlipidemia; M85.852 Other specified disorders of bone density and structure, left thigh; I10 Essential (primary) hypertension; E04.2 Nontoxic multinodular goiter
CPT/HCPCS: 96127; 99397

== ENCOUNTER 2023-09-07 08:17 | Outpatient (REF) | payer MEDICARE, SELFPAY ==
[2023-09-07 10:33] LABS: Hematocrit 41.4 % (37.0-47.0); Hemoglobin 13.6 g/dl (12.0-16.0)
[2023-09-07 11:20] LABS: Alanine Aminotransferase 17 U/L (0-31); Anion Gap 11 (12-20); Aspartate Amino Transferase 22 U/L (5-31); Blood Urea Nitrogen 13 mg/dL (9-16); Calcium 9.3 mg/dL (8.4-10.2); Carbon Dioxide 28 mmol/L (22-29); Chloride 104 mmol/L (96-108); Cholesterol 201 mg/dL (<200); Estimated Glomerular Filt Rate > 60; Glucose Fasting 102 mg/dL (60-99); HDL Cholesterol 44 mg/dL (>40); LDL Cholesterol Calculated 121 mg/dL (<100); Potassium 4.3 mmol/L (3.3-5.1); Sodium 139 mmol/L (135-145); Triglycerides 181 mg/dL (<150)
[2023-09-07 11:25] LABS: Free T4 (Free Thyroxine) 1.09 ng/dL (0.71-1.85); Thyroid Stimulating Hormone 2.84 uIU/mL (0.32-4.0); Vitamin D 25-OH Total 55.1 ng/mL (>30)
[2023-09-07 11:32] LABS: Estimated Average Glucose 114 mg/dL; Hemoglobin A1c % 5.6 % (<6.0)
== END 2023-09-07 08:18 | disposition home or self-care (01) ==
LOC: HO.HMGCLDS 08:17
PROVIDERS: PCP Internal Medicine; Visit Provider Internal Medicine
DX: E04.2 Nontoxic multinodular goiter (principal); I10 Essential (primary) hypertension; D12.6 Benign neoplasm of colon, unspecified; E78.2 Mixed hyperlipidemia; M85.80 Other specified disorders of bone density and structure, unspecified site; F41.9 Anxiety disorder, unspecified; F32.A Depression, unspecified; Z78.0 Asymptomatic menopausal state
CPT/HCPCS: 36415; 80048; 80061; 82306; 83036; 84439; 84443; 84450; 84460; 85014; 85018

== ENCOUNTER 2023-10-23 10:39 | Day surgery (SDC) | payer MEDICARE, SELFPAY ==
[2023-10-20 08:36] VITALS: BMI 26.3
--- NOTE | 2023-10-20 12:58 | HO.ANESPROP2 ---
HPI - Anesthesia Eval Consult details Narrative: 68yo F for Colonoscopy PMFSH Active Problems Active Problems: All Active Problems Pre-op examination (Acute) Tubular adenoma of colon (Acute) Anxiety and depression (Acute) Mixed dyslipidemia (Acute) Osteopenia (Acute) Menopause (Acute) Essential hypertension (Acute) Nontoxic multinodular goiter (Acute) Past Medical History Medical History Anxiety and depression History of primary hyperparathyroidism Mixed dyslipidemia History of invasive breast cancer Osteopenia Menopause Essential hypertension Nontoxic multinodular goiter Family History Family History Father Skin cancer HTN (hypertension) Diabetes mellitus Mother Stroke Brother Depression Brother No problems noted. Sister No problems noted. Sister No problems noted. Son No problems noted. Daughter No problems noted. Surgical History Surgical History (Updated 10/23/23 @ 11:44 by Yanna Barr RN) S/P lumpectomy, left breast Hx of colonoscopy History of partial thyroidectomy History of parathyroidectomy Social History Social History Housing: House Alcohol intake: never Patient Tobacco Use Status: Never used Tobacco e-Cigarette/Vaping Use: Never Used Second Hand Smoke Exposure: No Use of substances other than those prescribed or required for medical reasons: No Are you DNR?: No Advance Directives: No Advance Directives Information Provided: Yes Current occupational status: retired Cognitive needs: No Hearing needs: No Vision needs: Yes Meds Allergies Allergy/AdvReac Type Severity Reaction Status Date / Time amoxicillin Allergy Unknown hives Verified 10/23/23 11:45 lisinopril AdvReac Unknown cough Verified 10/23/23 11:45 Home Medications ?Medication ?Instructions ?Recorded ?Confirmed ?Last Taken ?Type calcium citrate 200 mg (950 mg) 200 mg PO DAILY 08/26/20 10/23/23 Unknown History tablet cholecalciferol (vitamin D3) 50 50 mcg PO DAILY 08/26/20 10/23/23 Unknown History mcg (2,000 unit) capsule multivitamin with minerals-folic tab PO 09/06/21 08/31/23 Unknown History acid 200 mcg chewable tablet (Adult Multivitamin Gummies) Exam Height,Weight and Vital Signs: Height 5 ft 5 in Weight 71.668 kg Pertinent Lab Results Pertinent Lab Results: Laboratory Tests 09/07/23 09/07/23 08:20 08:26 Hgb 13.6 Hct 41.4 Sodium 139 Potassium 4.3 Chloride 104 Carbon Dioxide 28 BUN 13 Creatinine 0.74 Assessment and Plan Assessment Anesthesia Assessment: Chart Reviewed
[2023-10-23 11:49] VITALS: BMI 28.5
[2023-10-23 11:58] VITALS: BP 162/87; PULSE 89; RESP 16; TEMP 37.2; O2SAT 97
[2023-10-23] MEDS: Lactated Ringers 1,000 ML 100 ML IVCONT (12:10)
--- NOTE | 2023-10-23 12:21 | P.HPSUR_ITS ---
Pre-Procedural Eval Section A - 24 Hr Update-Section A only Date of Service: 10/23/23 The patient is an INPATIENT: No The patient has been examined within 24 hours of the surgical procedure. The History & Physical has been completed within 30 days and I have reviewed it.: No Section B - Complete if H&P > 30 days Chief Complaint: Surveillance for colon polyp Relevant Family History (Specify if Yes): No Relevant Social History: None Present Medications: see Short Stay Collaborative assessment Medical History: Significant History (Hypertension High cholesterol Osteopenia History of breast cancer Multinodular goiter History of hyperparathyroidism Anxiety/depression Tubular adenoma -2015,[facility] at [facility]) History of Previous Operations: Relevant previous surgery/procedure and date(s) (Colonoscopy-2017 [facility], repeat 2027 Partial thyroidectomy Parathyroidectomy) Allergies: Allergies Allergy/AdvReac Type Severity Reaction Status Date / Time amoxicillin Allergy Unknown hives Verified 10/23/23 11:45 lisinopril AdvReac Unknown cough Verified 10/23/23 11:45 Review of Systems Sugical H&P ROS: Negative: Constitution, Cardiovascular, Respiratory and Gastrointestinal Exam Surgical H&P Exam: Normal: Heart, Normal: Lungs, Normal: Extremities and Normal: Abdomen Plan Diagnosis/Plan: Unchanged I have reviewed the history and physical and performed a pertinent physical examination on my patient. No changes have occurred unless specified. Time Spent With Patient Time: Total time managing care of this patient today ____ minutes.
--- NOTE | 2023-10-23 14:11 | HO.OPN-COLON ---
Colonoscopy Operative Note Operative Note Date of Service: 10/23/23 Narrative: COLONOSCOPY TILL CECUM WITH BIOPSIES Pre-op diagnosis: Surveillance for colon polyps Post-op diagnosis:? Patchy colitis left colon, Diverticulosis, hemorrhoids Endoscopist:? Mick Matias MD Anesthesia:?MAC Consent: Indications for the procedure and potential complications of bleeding, perforation, reaction to medications and missed diagnosis were discussed with the patient and informed consent was obtained. Instrument: Olympus PCF H 190 L variable stiffness pediatric colonoscope Monitoring: Vital signs and clinical assessment, intermittent blood pressure monitoring, continuous EKG monitoring, Pulse oximetry and Carbon Dioxide monitoring were done throughout the procedure. Please see anesthesia flowsheet. Colon withdrawl time was 16 minutes. Procedure: The patient was placed in the left lateral decubitis position and pre-procedure medications were administered. After a digital rectal examination of the ano-rectum, the video colonoscope was inserted into the rectum and advanced through the colon to the cecum. The colonoscope was slowly withdrawn in a retrograde panoramic fashion and the colon mucosa was carefully examined including a retroflexed view of the rectum. Findings and interventions are described below. Procedure Difficulty: without difficulty Findings: Terminal Ileum: Not evaluated Cecum: Normal Ascending Colon: Moderate diverticulosis throughout the entire colon Transverse Colon: Moderate diverticulosis throughout the entire colon Descending Colon: Moderate diverticulosis Sigmoid Colon: Patchy erythema (random biopsies obtained) and severe diverticulosis with luminal narrowing Rectum: Normal Ano-rectum: Moderate internal hemorrhoids Colon preparation: Good after some irrigation. [place] Bowel Preparation Scale Right colon; 3 Transverse colon: 3 Left colon; 3 (0 = Unprepared colon segment with mucosa not seen due to solid stool that cannot be cleared. 1 = Portion of mucosa of the colon segment seen, but other areas of the colon segment not well seen due to staining, residual stool and/or opaque liquid. 2 = Minor amount of residual staining, small fragments of stool and/or opaque liquid, but mucosa of colon segment seen well. 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 Moderate to severe diverticulosis seen in the entire colon Moderate hemorrhoids on retroflexed exam. Plan: Pt has a FU appointment on 11/07/23 with Cassandra Painting NP, Repeat Colonoscopy in 5 years due to a history of adenomatous colon polyps. Above findings were reviewed with the patient and relevant handouts were given and the discharge area.
[2023-10-23 14:13] VITALS: BP 116/64; PULSE 89; RESP 16; TEMP 37; O2SAT 97
[2023-10-23 14:28] VITALS: BP 125/81; PULSE 76; RESP 15; O2SAT 95
[2023-10-23 14:43] VITALS: BP 156/84; PULSE 78; RESP 16; TEMP 36.7; O2SAT 94
== END 2023-10-23 15:14 | disposition home or self-care (01) ==
PROVIDERS: PCP Internal Medicine; Visit Provider Internal Medicine Gastroenterology
PROC: 0DJD8ZZ Inspection of Lower Intestinal Tract, Via Natural or Artificial Opening Endoscopic (ICD-10-PCS; CPT 45378; principal; 2023-10-23 13:20)
DX: Z12.11 Encounter for screening for malignant neoplasm of colon (principal); K52.9 Noninfective gastroenteritis and colitis, unspecified; K57.30 Diverticulosis of large intestine without perforation or abscess without bleeding; K64.8 Other hemorrhoids; Z86.010 Personal history of colon polyps; I10 Essential (primary) hypertension; Z88.0 Allergy status to penicillin
CPT/HCPCS: 45380; 88305; J2250; J2704

== ENCOUNTER → 2023-10-23 10:39 | Outpatient (BNV) | payer MEDICARE, SELFPAY | PROVIDERS: PCP Internal Medicine; Visit Provider Internal Medicine Gastroenterology | DX: Z12.11 Encounter for screening for malignant neoplasm of colon (principal); K57.30 Diverticulosis of large intestine without perforation or abscess without bleeding; K64.8 Other hemorrhoids | CPT/HCPCS: 45380 ==

== ENCOUNTER 2023-11-07 10:48 | Outpatient (AMB) | payer MEDICARE, SELFPAY ==
[2023-11-07 10:49] VITALS: BP 155/73; PULSE 60; BMI 27.0
--- NOTE | 2023-11-07 10:49 | A.OFFVIS_ITS ---
Vital Signs 11/07/23 10:49 Height 5 ft 5 in Weight 162 lb 4.163 oz BMI 27.0 BP 155/73 H Blood Pressure Location Lt brachial Position Sitting Pulse 60 Intake Visit Reasons: s/p colon Florencio Intake Note: Anusha presents to in office visit today s/p colonoscopy. CC: Patient denies having any GI concerns or symptoms today. 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 Code(s): D12.6 - Benign neoplasm of colon, unspecified Plan This will be a 5 year colonoscopy repeat r/t past small TA. She denies any trouble with the prep or with past colonoscopies. She denies bowel problems, she has been having increasing HB as she ages but only with some triggers like chocolate and spaghetti sauce and it resolves well with tums. There are no prior problems with anesthesia or sedation. She denies any cardiac or respiratory problems. No problems ID. No known FHX crc or polyps, but she and her dtr had polyps removed. Orders: Orders Colonoscopy - GI Use Only Today Medications: New peg 3350-electrolytes 236-22.74-6.74 -5.86 gram (Golytely) until fecal effluent is clear; do not exceed a total volume of 2,000 mL 240 mL PO Q10M 1 day 4,000 mL 0RF Z12.11 - Encounter for screening for malignant neoplasm of colon bisacodyl (Dulcolax (bisacodyl)) 10 mg (2 x 5 mg) PO BEDTIME 2 days 4 tabs 0RF COLONOSCOPY 10/23/23 Findings: Terminal Ileum: Not evaluated Cecum: Normal Ascending Colon: Moderate diverticulosis throughout the entire colon Transverse Colon: Moderate diverticulosis throughout the entire colon Descending Colon: Moderate diverticulosis Sigmoid Colon: Patchy erythema (random biopsies obtained) and severe diverticulosis with luminal narrowing Rectum: Normal Ano-rectum: Moderate internal hemorrhoids Impression and Post Procedure Diagnosis: Colonoscopy Findings: No polyps were detected Patchy erythema (random biopsies obtained) and severe diverticulosis with luminal narrowing 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 Moderate to severe diverticulosis seen in the entire colon Moderate hemorrhoids on retroflexed exam. Plan: Pt has a FU appointment on 11/07/23 with Cassandra Painting NP, Repeat Colonoscopy in 5 years due to a history of adenomatous colon polyps. BIOPSY Received: 10/23/23 Diagnosis Mildly active colitis. Mildly active colitis TODAY'S VISIT She had a very hard time after the procedure. She had a rattly cough and when she spoke with anesthesia they told her that she vomited quite a lot during the procedure. They were suspecting aspiration. Her stomach also was very upset for fiber 6 days after the procedure. This correlates with the segmental colitis which I suspect was caused by the prep along with gastric irritation. Will definitely have to use a different prep in the future then PEG. She was very frightened as she was sent home with instructions to presenjt to the ER if she had SOB, and had anxiety SOB that resolved with ativan. She has agreeable to a 5 year repeat of the procedure. [facility] Medical History Anxiety and depression History of primary hyperparathyroidism Mixed dyslipidemia History of invasive breast cancer Osteopenia Menopause Essential hypertension Nontoxic multinodular goiter Surgical History S/P lumpectomy, left breast Hx of colonoscopy History of partial thyroidectomy History of parathyroidectomy Family History Father Skin cancer HTN (hypertension) Diabetes mellitus Mother Stroke Brother Depression Brother No problems noted. Sister No problems noted. Sister No problems noted. Son No problems noted. Daughter No problems noted. Social History Housing: House Alcohol intake: never Patient Tobacco Use Status: Never used Tobacco e-Cigarette/Vaping Use: Never Used Second Hand Smoke Exposure: No Current occupational status: retired Cognitive needs: No Hearing needs: No Vision needs: Yes Review of Systems Const Denies fatigue, Denies fever(s), Denies night sweats, Denies poor appetite and Denies weight loss ENT Reports Normal hearing present, Denies dental pain, Denies dysphagia, Denies hearing loss, Denies mouth pain, Denies odynophagia, Denies throat swelling, Denies tongue swelling and Reports other (Dentition adequate) Card Reports no additional complaints Resp Reports no additional complaints GI Details: Reports abdominal pain, Denies melena, Denies bloating, Denies hematochezia, Denies constipation, Denies GI cramping, Denies dysphagia, Denies excessive flatus, Denies early satiety, Reports dyspepsia, Denies heartburn, Denies diarrhea, Denies nausea, Denies odynophagia, Denies vomiting and Denies hematemesis Skin/Breast Denies pruritus, Denies lesions, Denies rash and Denies jaundice Neuro Reports Normal hearing present and Denies Abnormal speech present Endo Denies fatigue Aller/Immun Denies throat swelling and Denies tongue swelling Physical Exam Vital Signs: Last Vital Signs Pulse 60 11/07/23 10:49 BP 155/73 H 11/07/23 10:49 BMI result Body Mass Index 27.0 Const General: cooperative, no acute distress, well developed and well groomed Nutritional Appearance: well nourished and overweight Orientation/consciousness: oriented to person, oriented to place and oriented to time Limitations: No language barrier HEENT Head: Yes normocephalic and Yes atraumatic Eyes General: appearance normal, both eyes and all related structures Pupils: Equal, round and reactive pupils present Neck Neck: Yes normal visual inspection and Yes no lymphadenopathy Thyroid: Thyroid normal Resp Effort & Inspection: normal respiratory effort and able to speak in complete sentences Auscultation: clear to auscultation bilaterally Cardio Rate: regular rate Rhythm: regular rhythm Heart sounds: Normal, physiologic split S2 sound present Peripheral pulses: radial pulses present and posterior tibial pulses present GI Inspection: No distended, No Abdominal panniculus present and Yes obesity Palpation (GI): Soft to palpation, nontender, no guarding, not rigid and No hepatosplenomegaly present Percussion: Yes normal to percussion Auscultation: normal bowel sounds Rectal Exam - Female: deferred Skin General skin exam: no rashes or lesions noted, turgor normal, skin not dry, no jaundice, No spider nevi and no striae Rashes: no rashes Nails: normal Neuro General: oriented to person, oriented to place and oriented to time Cranial nerves: Yes Equal, round and reactive pupils present and Yes Normal hearing present Speech: No Abnormal speech present Extrem General: Yes normal to inspection, No clubbing, No cyanosis and No edema Psych Appearance: grossly normal and well kempt Mental Status: mental status grossly normal Speech and movement: Normal speech and movement present Affect: normal affect Attitude: cooperative Thought process: Normal thought process present and not confabulating Thought content: Normal thought content present Insight: Fair insight present (Psych) Judgement: Fair judgement present (Psych) Results Reviewed Results Reviewed: COLONOSCOPY 10/23/23 Findings: Terminal Ileum: Not evaluated Cecum: Normal Ascending Colon: Moderate diverticulosis throughout the entire colon Transverse Colon: Moderate diverticulosis throughout the entire colon Descending Colon: Moderate diverticulosis Sigmoid Colon: Patchy erythema (random biopsies obtained) and severe diverticulosis with luminal narrowing Rectum: Normal Ano-rectum: Moderate internal hemorrhoids Impression and Post Procedure Diagnosis: Colonoscopy Findings: No polyps were detected Patchy erythema (random biopsies obtained) and severe diverticulosis with luminal narrowing 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 Moderate to severe diverticulosis seen in the entire colon Moderate hemorrhoids on retroflexed exam. Plan: Pt has a FU appointment on 11/07/23 with Cassandra Painting NP, Repeat Colonoscopy in 5 years due to a history of adenomatous colon polyps. BIOPSY Received: 10/23/23 Diagnosis Mildly active colitis. Mildly active colitis Assessment & Plan Assessment & Plan (1) Tubular adenoma of colon: Comment: 09/2023=prep colitis no polyps repeat in 5 years; 2016 scope at [facility] Code(s): D12.6 - Benign neoplasm of colon, unspecified Category: Medical Plan: She had a very hard time after the procedure. She had a rattly cough and when she spoke with anesthesia they told her that she vomited quite a lot during the procedure. They were suspecting aspiration. Her stomach also was very upset for fiber 6 days after the procedure. This correlates with the segmental colitis which I suspect was caused by the prep along with gastric irritation. Will definitely have to use a different prep in the future then PEG. She was very frightened as she was sent home with instructions to presenjt to the ER if she had SOB, and had anxiety SOB that resolved with ativan. She has agreeable to a 5 year repeat of the procedure. Coding Level of Care Code Est Pt Level 3 (88040) Diagnoses Tubular adenoma of colon D12.6
== END 2023-11-07 11:08 | disposition home or self-care (01) ==
PROVIDERS: PCP Internal Medicine; Visit Provider Nurse Practitioner
DX: D12.6 Benign neoplasm of colon, unspecified (principal)
CPT/HCPCS: 99213

== ENCOUNTER → 2023-11-07 10:48 | Outpatient (BNVA) | payer MEDICARE, SELFPAY | PROVIDERS: PCP Internal Medicine; Visit Provider Nurse Practitioner | DX: D12.6 Benign neoplasm of colon, unspecified (principal) | CPT/HCPCS: 99212 ==

== ENCOUNTER 2024-02-26 11:32 | Outpatient (AMB) | payer MEDICARE, SELFPAY ==
[2024-02-26 12:21] VITALS: BP 120/82; PULSE 65; O2SAT 98; BMI 27.0
--- NOTE | 2024-02-26 12:21 | MHC.PC.OV ---
Vital Signs 02/26/24 12:21 Height 5 ft 5 in Weight 162 lb BMI 27.0 BP 120/82 Blood Pressure Location Lt brachial Position Sitting Pulse 65 Pulse Source Pulse Oximeter Pulse Oximetry (%) 98 Oxygen Delivery Method Room Air Intake Visit Reasons: 6mo. f/u Intake Note: Pt is here today for her 6mo. f/u Allergies amoxicillin Allergy (Unknown, Verified 02/26/24 12:32) hives lisinopril Adverse Reaction (Unknown, Verified 02/26/24 12:32) cough Medication List - Last Reconciled 02/26/24 by Mary Wood MD atenolol 50 mg PO DAILY atorvastatin 10 mg PO DAILY calcium citrate 200 mg PO DAILY cholecalciferol (vitamin D3) 50 mcg PO DAILY fluoxetine 20 mg PO DAILY multivit with min-folic acid 200 mcg (Adult Multivitamin Gummies) tabs PO Tobacco use date assessed: 02/26/24 Fall risk assessment: No Falls in past year Last assessed Fall Risk: 02/26/24 Dental Screening Dental Screen Date: 02/26/24 Did you have a dental visit in the last 12 months?: Yes Did you have a dental problem in the last 6 months where you did not have access to dental care?: No Was dental information given to patient?: Patient has dentist HPI 6mo. f/u HPI Details 68 year old lady with PMHx after triple negative breast cancer followed at [facility], has dyslipidemia, hypertension, mixed anxiety depression, and osteopenia, here today for her follow-up. Has been feeling well, with no complaints at present time. [facility] Medical History (Updated 03/03/24 @ 05:25 by Mary Wood MD) Bilateral impacted cerumen Anxiety and depression History of primary hyperparathyroidism Mixed dyslipidemia History of invasive breast cancer Osteopenia Menopause Essential hypertension Nontoxic multinodular goiter Surgical History S/P lumpectomy, left breast Hx of colonoscopy History of partial thyroidectomy History of parathyroidectomy Family History Father Skin cancer HTN (hypertension) Diabetes mellitus Mother Stroke Brother Depression Brother No problems noted. Sister No problems noted. Sister No problems noted. Son No problems noted. Daughter No problems noted. Social History Housing: House Alcohol intake: never Patient Tobacco Use Status: Never used Tobacco e-Cigarette/Vaping Use: Never Used Second Hand Smoke Exposure: No Current occupational status: retired Cognitive needs: No Hearing needs: No Vision needs: Yes Questionnaire PHQ-9 Over the last 2 weeks, how often have you been bothered by any of the following problems? 1. Little interest or pleasure in doing things: not at all Depression Screening Interpretation: Negative Depression Screening Done: Yes Source: Developed by Drs. Jarvis Sagastume, Mary Lara, Ric Alberts and colleagues, with an educational tom from [employer]. Thrive Questionnaire Date Thrive assessed: 02/24/24 I am a: Patient What is your living situation today?: I have a steady place to live Within the past 12 months, did the food you bought not last and you didn't have the money to get more?: Never true Within the past 12 months, did you worry whether your food would run out before you got money to buy more?: Never true Do you have trouble paying for medicines?: No Do you have trouble getting transportation to medical appointments?: No Do you have trouble paying your heating and electricity bill?: No Do you have trouble taking care of your child, family member or friend?: No Do you have trouble with day-to-day activities such as bathing, preparing meals, shopping, managing finances, etc.?: No Are you interested in more education?: No Please select the resources that you would like help with: None Currently or been in a relationship where the following occur: No concerns reported THRIVE Score: 0 AUDIT C Alcohol Use Questionnaire (AUDIT-C) 1. How often do you have a drink containing alcohol?: Never Total Score: 0 HEATHER-7 AMB Questionnaire HEATHER-7 Date HEATHER - 7 assessed: 08/31/23 Feeling nervous, anxious, or on edge: 0 = Not at all Not being able to stop or control worryin = Not at all Worrying too much about different things: 0 = Not at all Trouble relaxin = Not at all Being so restless that it is hard to sit still: 0 = Not at all Becoming easily annoyed or irritable: 0 = Not at all Feeling afraid as if something awful might happen: 0 = Not at all Total HEATHER-7 score (0-4 normal; 5-9 mild; 10-14 moderate; 15-21 severe): 0 Source: Developed by Drs. Jarvis Sagastume, Mary Lara, Ric Alberts and colleagues, with an educational tom from [employer]. Review of Systems Const Denies body aches, Denies fever(s), Denies headache(s) and Denies lethargy Eyes Details: Sees Dr. Sewell for her regular eye exam, has appointment next Denies change in vision ENT Denies headache(s), Denies nasal congestion, Denies nasal discharge and Denies sore throat Card Details: Followed at [facility] breast clinic , for her mammogram and follow-up regarding history of breast cancer Denies chest pain, Denies lightheadedness and Denies dyspnea Resp Denies cough and Denies dyspnea GI Denies abdominal pain, Denies melena, Denies hematochezia, Denies change in bowel habits and Denies heartburn Denies urinary frequency, Denies dysuria and Denies urinary urgency Musc Denies back pain, Denies myalgias, Denies arthralgias and Denies muscle weakness [facility] Denies dry skin and Denies rash Neuro Reports no additional complaints and Denies headache(s) Psych Reports no additional complaints Endo Details: Has an appointment for follow-up with Dr. Bradford for her thyroid and osteopenia Reports no additional complaints and Denies polydipsia Paddy/Lymph Reports no additional complaints Aller/Immun Denies seasonal rhinorrhea Physical exam (Primary Care) Vital Signs: Last Vital Signs Pulse 65 02/26/24 12:21 BP 120/82 02/26/24 12:21 Pulse Ox 98 02/26/24 12:21 Oxygen Delivery Method Room Air 02/26/24 12:21 BMI result Body Mass Index 27.0 Tobacco/Smoking Status: Tobacco use Status Tobacco use date assessed 02/26/24 02/26/24 12:24 Patient Tobacco Use Status Never used Tobacco 02/26/24 12:24 e-Cigarette/Vaping Use Never Used 02/26/24 12:24 Depression Screening Interpretation: Negative Thrive Assessment: Date of Thrive Assessment Date Thrive assessed 02/24/24 02/26/24 12:24 Currently or been in a relationship where the following occur: No concerns reported Const Other: Alert oriented x3, no acute distress noted, ambulatory with normal gait General: healthy appearing, no acute distress and alert Nutritional Appearance: underweight Orientation/consciousness: patient oriented x3 [facility] Head: Yes normocephalic Ears: external ears normal General nose exam: Normal external nose present Face and sinus: Yes face symmetric Mouth: Normal oral and palatal mucosa present, oropharynx normal and moist mucous membranes Eyes General: appearance normal, both eyes and all related structures Neck Neck: Yes full ROM, Yes no lymphadenopathy and Yes supple Chest Breast/axilla palpation: normal palpation of the breasts and normal palpation of the axillae Resp Auscultation: clear to auscultation bilaterally Cardio Other: S1-S2 present regular rate and rhythm GI Other: Normal bowel sounds, soft, nontender, no mass palpated General: Yes no CVA tenderness and Yes deferred Back/Spine/Pelvis Back: no CVA tenderness and No back tenderness Skin General skin exam: no rashes or lesions noted Neuro General: patient oriented x3, gait normal, tone normal, moves all extremities, Normal light touch and pain sensation, no focal motor deficits and CN's II-XI intact bilaterally Extrem General: Yes full ROM, Yes no joint enlargement, Yes no pedal edema, Yes no calf tenderness and Yes normal gait Psych Appearance: grossly normal and well kempt Mental Status: mental status grossly normal Speech and movement: Normal speech and movement present Affect: normal affect Attitude: cooperative Thought process: Normal thought process present Thought content: Normal thought content present Assessment and Plan Assessment & Plan (1) Essential hypertension: Code(s): I10 - Essential (primary) hypertension Plan: Blood pressure at goal of less than 130/80. Continue with atenolol 50 mg daily. Reinforced importance of following a low sodium diet, getting regular exercise, and lowering stress levels. (2) Menopause: Code(s): Z78.0 - Asymptomatic menopausal state Plan: Check vitamin-D level, currently followed by endocrine clinic for her osteopenia (3) Anxiety and depression: Code(s): F41.9 - Anxiety disorder, unspecified; F32.A - Depression, unspecified Plan: Controlled on fluoxetine, will continue on present treatment (4) Bilateral impacted cerumen: Code(s): H61.23 - Impacted cerumen, bilateral Plan: Successful removal of bilateral impacted cerumen with lighted curette, patient tolerated procedure well advised not to put Q-tips inside ear canal (5) Mixed dyslipidemia: Code(s): E78.2 - Mixed hyperlipidemia Plan: Currently on atorvastatin 10 mg daily, with last lipids in 08/2023 within normal limits. Ordered a fasting lipid panel today together with liver enzymes, basic metabolic panel Orders: Orders Aspartate Amino Transferase 02/26/24 E78.2 - Mixed hyperlipidemia, F32.A - Depression, unspecified, F41.9 - Anxiety disorder, unspecified, I10 - Essential (primary) hypertension, M85.852 - Other specified disorders of bone density and structure, left thigh, Z78.0 - Asymptomatic menopausal state Lipid Panel 02/26/24 E78.2 - Mixed hyperlipidemia, F32.A - Depression, unspecified, F41.9 - Anxiety disorder, unspecified, I10 - Essential (primary) hypertension, M85.852 - Other specified disorders of bone density and structure, left thigh, Z78.0 - Asymptomatic menopausal state Alanine Aminotransferase 02/26/24 E78.2 - Mixed hyperlipidemia, F32.A - Depression, unspecified, F41.9 - Anxiety disorder, unspecified, I10 - Essential (primary) hypertension, M85.852 - Other specified disorders of bone density and structure, left thigh, Z78.0 - Asymptomatic menopausal state Basic Metabolic Panel Fasting 02/26/24 E78.2 - Mixed hyperlipidemia, F32.A - Depression, unspecified, F41.9 - Anxiety disorder, unspecified, I10 - Essential (primary) hypertension, M85.852 - Other specified disorders of bone density and structure, left thigh, Z78.0 - Asymptomatic menopausal state Vitamin D 25-OH Total 02/26/24 E78.2 - Mixed hyperlipidemia, F32.A - Depression, unspecified, F41.9 - Anxiety disorder, unspecified, I10 - Essential (primary) hypertension, M85.852 - Other specified disorders of bone density and structure, left thigh, Z78.0 - Asymptomatic menopausal state Coding Level of Care Code Est Pt Level 4 (97807) Complex EM visit Add On G2211 Diagnoses Essential hypertension I10 Menopause Z78.0 Anxiety and depression F41.9; F32.A Bilateral impacted cerumen H61.23 Mixed dyslipidemia E78.2
== END 2024-02-26 13:17 | disposition home or self-care (01) ==
PROVIDERS: PCP Internal Medicine; Visit Provider Internal Medicine
DX: I10 Essential (primary) hypertension (principal); Z78.0 Asymptomatic menopausal state; F41.9 Anxiety disorder, unspecified; F32.A Depression, unspecified; H61.23 Impacted cerumen, bilateral; E78.2 Mixed hyperlipidemia

== ENCOUNTER → 2024-02-26 11:32 | Outpatient (BNVA) | payer MEDICARE, SELFPAY | PROVIDERS: PCP Internal Medicine; Visit Provider Internal Medicine | DX: I10 Essential (primary) hypertension (principal); E78.5 Hyperlipidemia, unspecified; F41.1 Generalized anxiety disorder; M85.80 Other specified disorders of bone density and structure, unspecified site; Z78.0 Asymptomatic menopausal state | CPT/HCPCS: 99212 ==

== ENCOUNTER 2024-03-27 07:33 | Outpatient (REF) | payer MEDICARE, SELFPAY ==
[2024-03-27 11:10] LABS: Alanine Aminotransferase 21 U/L (0-31); Anion Gap 12 (12-20); Aspartate Amino Transferase 23 U/L (5-31); Blood Urea Nitrogen 11 mg/dL (9-16); Calcium 9.4 mg/dL (8.4-10.2); Carbon Dioxide 29 mmol/L (22-29); Chloride 103 mmol/L (96-108); Cholesterol 195 mg/dL (<200); Estimated Glomerular Filt Rate > 60; Glucose Fasting 106 mg/dL (60-99); HDL Cholesterol 44 mg/dL (>40); LDL Cholesterol Calculated 114 mg/dL (<100); Potassium 4.1 mmol/L (3.3-5.1); Sodium 140 mmol/L (135-145); Triglycerides 186 mg/dL (<150)
[2024-03-27 11:13] LABS: Vitamin D 25-OH Total 54.5 ng/mL (>30)
== END 2024-03-27 07:34 | disposition home or self-care (01) ==
LOC: HO.HMGCLDS 07:33
PROVIDERS: PCP Internal Medicine; Visit Provider Internal Medicine
DX: M85.852 Other specified disorders of bone density and structure, left thigh (principal); F41.9 Anxiety disorder, unspecified; F32.A Depression, unspecified; E78.2 Mixed hyperlipidemia; Z78.0 Asymptomatic menopausal state; I10 Essential (primary) hypertension
CPT/HCPCS: 36415; 80048; 80061; 82306; 84450; 84460

== ENCOUNTER 2024-05-22 10:16 | Outpatient (REF) | payer MEDICARE, SELFPAY ==
--- NOTE | ~2024-05-22 | MM_ITS ---
EXAMINATION: BONE DENSITOMETRY CLINICAL INDICATION: Other specified post procedural states. Other specified disorders of bone density and structure, unspecified thigh. COMPARISON: Previous BD dated 04/22/2022 and baseline BD dated 03/24/2015 (lumbar spine and left hip) and 11/16/2017 (left forearm radius 33%). TECHNIQUE: Using a [employer] DXA System (software version: 13.1) manufactured by [employer], dual-energy x-ray absorptiometry was performed of the lumbar spine, left hip and left forearm radius 33%. The images are of good technical quality. Summary results are attached. FINDINGS: AP SPINE L1-L4: Current: BMD 1.142 g/cm2, Z-score 1.2, T-score -0.3, normal, 0.5% decrease from previous, 3.4% increase from baseline (<5% change is not significant). Prior: BMD 1.148 g/cm2. Baseline: BMD 1.104 g/cm2. LEFT FEMUR, NECK: Current: BMD 0.870 g/cm2, Z-score 0.4, T-score -1.2, osteopenia. Prior: BMD 0.759 g/cm2. Baseline: BMD 0.824 g/cm2. LEFT FEMUR, TOTAL: Current: BMD 0.935 g/cm2, Z-score 0.8, T-score -0.6, normal, 11.0% increase from previous, 7.8% increase from baseline (<5% change is not significant). Prior: BMD 0.842 g/cm2. Baseline: BMD 0.867 g/cm2. LEFT FOREARM RADIUS 33%: Current: BMD 0.850 g/cm2, Z-score 1.6, T-score -0.3, normal, 4.9% increase from previous, 10.2% increase from baseline (<5% change is not significant). Prior: BMD 0.810 g/cm2. Baseline: BMD 0.771 g/cm2. IDENTIFIED RISK FACTORS: Hyperparathyroidism. Menopause. HISTORY OF FRACTURE: None listed. MEDICATIONS: Calcium supplement and/or multivitamin. Vitamin D. MM/XR DEXA appendicular skeleton IMPRESSION: 1. DIAGNOSIS: Osteopenia based on the lowest T-score value of -1.2 in the femoral neck applying World Health Organization criteria. 2. 10-YEAR FRACTURE RISK PREDICTION, FRAX: Major osteoporotic fracture (clinical spine, forearm, hip or shoulder) 9.3%. Hip fracture 1.2%. 3. Treatment Recommendations: NOF guidelines recommend consideration for treatment in postmenopausal women and men age 50 and older presenting with the following: -A hip or vertebral (clinical or morphometric) fracture. -T-score less than or equal to -2.5 at the femoral neck or spine after appropriate evaluation to exclude secondary causes. -Low bone mass at the hip or spine and a 10-year fracture probability by FRAX of greater than or equal to 3% for hip fracture or greater than or equal to 20% for major osteoporotic fracture based on the [place] adapted WHO algorithm. 4. Other Recommendations: All treatment decisions require clinical judgment and consideration of individual patient factors, including patient preferences, comorbidities, previous drug use, risk factors not captured in the FRAX model (e.g. frailty, falls, vitamin D deficiency, increased bone turnover, interval significant decline in bone density) and possible under or overestimation of fracture risk by FRAX. Additional medical evaluation for secondary cause of low bone mineral density may be appropriate. FUTURE SCAN RECOMMENDATION: People with diagnosed cases of osteoporosis or at high risk for fracture should have regular bone mineral density tests. For patients eligible for Medicare, routine testing is allowed once every 2 years. The testing frequency can be increased to one year for patients who have rapidly progressing disease, those who are receiving or discontinuing medical therapy to restore bone mass, or have additional risk factors. Electronically signed by: Claude Ritter MD 05/22/2024 04:17 PM SANDEE ZAMBRANO
== END 2024-05-22 10:17 | disposition home or self-care (01) ==
LOC: HO.MAMMO 10:16
PROVIDERS: PCP Internal Medicine; Visit Provider Internal Medicine
DX: M85.869 Other specified disorders of bone density and structure, unspecified lower leg (principal); M85.852 Other specified disorders of bone density and structure, left thigh; Z98.890 Other specified postprocedural states; Z90.89 Acquired absence of other organs
CPT/HCPCS: 77081

== ENCOUNTER 2024-09-02 08:02 | Outpatient (REF) | payer MEDICARE, SELFPAY ==
[2024-09-02 11:23] LABS: Alanine Aminotransferase 18 U/L (0-31); Anion Gap 13 (12-20); Aspartate Amino Transferase 24 U/L (5-31); Blood Urea Nitrogen 12 mg/dL (9-16); Calcium 8.7 mg/dL (8.4-10.2); Carbon Dioxide 25 mmol/L (22-29); Chloride 105 mmol/L (96-108); Cholesterol 188 mg/dL (<200); Estimated Glomerular Filt Rate > 60; Glucose Fasting 104 mg/dL (60-99); HDL Cholesterol 44 mg/dL (>40); LDL Cholesterol Calculated 118 mg/dL (<100); Potassium 4.1 mmol/L (3.3-5.1); Sodium 139 mmol/L (135-145); TSH reflex Free T4 3.05 uIU/mL (0.32-4.0); Triglycerides 133 mg/dL (<150); Vitamin D 25-OH Total 63.4 ng/mL (>30)
== END 2024-09-02 08:03 | disposition home or self-care (01) ==
LOC: HO.HMGCLDS 08:02
PROVIDERS: PCP Internal Medicine; Visit Provider Internal Medicine
DX: F41.9 Anxiety disorder, unspecified (principal); F32.A Depression, unspecified; E78.2 Mixed hyperlipidemia; M85.852 Other specified disorders of bone density and structure, left thigh; E04.2 Nontoxic multinodular goiter; I10 Essential (primary) hypertension; Z78.0 Asymptomatic menopausal state
CPT/HCPCS: 36415; 80048; 80061; 82306; 84443; 84450; 84460

== ENCOUNTER 2024-09-10 08:40 | Outpatient (AMB) | payer MEDICARE, SELFPAY ==
--- NOTE | 2024-09-10 09:01 | A.OFFPC_ITS ---
Vital Signs 09/10/24 09:05 Weight 168 lb BP 134/80 Blood Pressure Location Lt brachial Position Sitting Respiration 16 Pulse 76 Pulse Source Pulse Oximeter Temp 98.5 F Temp Source Oral Pulse Oximetry (%) 97 Oxygen Delivery Method Room Air Intake Visit Reasons: PE Intake Note: Pt is here today for her PE: Last mammogram 04/01/24, colonoscopy 10/23/23, bone density scan 05/22/24 Allergies amoxicillin Allergy (Unknown, Verified 09/10/24 09:20) hives lisinopril Adverse Reaction (Unknown, Verified 09/10/24 09:20) cough Medication List - Last Reconciled 09/10/24 by Mary Wood MD atenolol 50 mg PO DAILY atorvastatin 10 mg PO DAILY calcium citrate 200 mg PO DAILY cholecalciferol (vitamin D3) 50 mcg PO DAILY fluoxetine 20 mg PO DAILY multivit with min-folic acid 200 mcg (Adult Multivitamin Gummies) tabs PO Tobacco use date assessed: 09/10/24 Fall risk assessment: No Falls in past year Last assessed Fall Risk: 09/10/24 Dental Screening Dental Screen Date: 09/10/24 Did you have a dental visit in the last 12 months?: Yes Did you have a dental problem in the last 6 months where you did not have access to dental care?: Yes Was dental information given to patient?: Patient has dentist HPI PE HPI Details 69 year old lady with PMHx of triple n egative breast cancer followed at [facility], has dyslipidemia, hypertension, mixed anxiety /depression, and osteopenia, here today for her physical exam. Up-to-date with her breast cancer screening, last mammogram was done 04/01/2024 with benign findings. She had also a bone density scan done last 05/22/2024 which showed mild osteopenia in left femoral neck, normal in lumbar spine and left femur, improved from last bone density scan in 2021, no history of fractures. Currently takes calcium citrate and cholecalciferol 50 mcg daily.. Walks regularly for exercise. Up-to-date with her screening colonoscopy done 10/23/2023 , done by Dr. Matias which showed mild colitis, diverticulosis and internal hemorrhoids, no polyps seen, to be repeated in 5 years due to history of tubular adenoma polyp in the past. She sees Dr. Sewell for her routine eye exam. She sees [facility], Agnes Rincon [employer] for her routine pelvic and cervical cancer screening, last done a year ago, no further cervical screening is indicated per patient. Anxiety depression stable and well controlled on fluoxetine. Up-to-date with all her vaccines but does not get any further COVID and does not want to get the RSV. Recent fasting labs showed lipids, fasting glucose, electrolytes renal function vitamin-D within normal limit [facility] Medical History (Updated 09/10/24 @ 09:49 by Mary Wood MD) Bilateral impacted cerumen Anxiety and depression History of primary hyperparathyroidism Mixed dyslipidemia History of invasive breast cancer Osteopenia Menopause Essential hypertension Nontoxic multinodular goiter Surgical History S/P lumpectomy, left breast Hx of colonoscopy History of partial thyroidectomy History of parathyroidectomy Family History Father Skin cancer HTN (hypertension) Diabetes mellitus Mother Stroke Brother Depression Brother No problems noted. Sister No problems noted. Sister No problems noted. Son No problems noted. Daughter No problems noted. Social History Housing: House Alcohol intake: never Patient Tobacco Use Status: Never used Tobacco e-Cigarette/Vaping Use: Never Used Second Hand Smoke Exposure: No Current occupational status: retired Cognitive needs: No Hearing needs: No Vision needs: Yes Questionnaire PHQ-9 Over the last 2 weeks, how often have you been bothered by any of the following problems? 1. Little interest or pleasure in doing things: not at all 2. Feeling down, depressed, or hopeless: not at all 3. Trouble falling or staying asleep, or sleeping too much: not at all 4. Feeling tired or having little energy: not at all 5. Poor appetite or overeating: not at all 6. Feeling bad about yourself - or that you are a failure or have let yourself or your family down: not at all 7. Trouble concentrating on things, such as reading the newspaper or watching television: not at all 8. Moving or speaking so slowly that other people could have noticed. Or the opposite - being so fidgety or restless that you have been moving around a lot more than usual: not at all 9. Thoughts that you would be better off or of hurting yourself in some way: not at all Total score: 0 Depression Screening Interpretation: Negative Depression Screening Done: Yes 69689 - PHQ-9 Billing: Yes Source: Developed by Drs. Jarvis Sagastume, Mary Lara, Ric Alberts and colleagues, with an educational tom from [employer]. Thrive Questionnaire Date Thrive assessed: 09/04/24 I am a: Patient What is your living situation today?: I have a steady place to live Within the past 12 months, did the food you bought not last and you didn't have the money to get more?: Never true Within the past 12 months, did you worry whether your food would run out before you got money to buy more?: Never true Do you have trouble paying for medicines?: No Do you have trouble getting transportation to medical appointments?: No Do you have trouble paying your heating and electricity bill?: No Do you have trouble taking care of your child, family member or friend?: No Do you have trouble with day-to-day activities such as bathing, preparing meals, shopping, managing finances, etc.?: No Are you currently unemployed and looking for a job?: No Are you interested in more education?: No Please select the resources that you would like help with: None Currently or been in a relationship where the following occur: No concerns reported THRIVE Score: 0 AUDIT C Alcohol Use Questionnaire (AUDIT-C) 1. How often do you have a drink containing alcohol?: Monthly or less 2. How many drinks containing alcohol do you have on a typical day when you are drinking?: 1 or 2 3. How often do you have six or more drinks on one occasion?: Never Total Score: 1 HEATHER-7 AMB Questionnaire HEATHER-7 Date HEATHER - 7 assessed: 09/10/24 Feeling nervous, anxious, or on edge: 0 = Not at all Not being able to stop or control worryin = Not at all Worrying too much about different things: 0 = Not at all Trouble relaxin = Not at all Being so restless that it is hard to sit still: 0 = Not at all Becoming easily annoyed or irritable: 0 = Not at all Feeling afraid as if something awful might happen: 0 = Not at all Total HEATHER-7 score (0-4 normal; 5-9 mild; 10-14 moderate; 15-21 severe): 0 Source: Developed by Drs. Jarvis Sagastume, Mary Lara, Ric Alberts and colleagues, with an educational tom from [employer]. Review of Systems Const Denies body aches, Denies fever(s), Denies headache(s) and Denies lethargy Eyes Details: sees Dr Sewell yearly Denies change in vision ENT Details: Gets dental cleaning every 6 months Denies headache(s), Denies nasal congestion, Denies nasal discharge and Denies sore throat Card Details: Followed at [facility] breast clinic , for her mammogram and follow-up regarding history of breast cancer Denies chest pain, Denies lightheadedness and Denies dyspnea Resp Denies cough and Denies dyspnea GI Denies abdominal pain, Denies melena, Denies hematochezia, Denies change in bowel habits and Denies heartburn Denies urinary frequency, Denies dysuria and Denies urinary urgency Musc Denies back pain, Denies myalgias, Denies arthralgias and Denies muscle weakness [facility] for her routine skin check, has a slightly rough patch on left cheek which she is going to have check Denies dry skin Neuro Reports no additional complaints and Denies headache(s) Psych Reports no additional complaints Endo Details: Has an appointment for follow-up with Dr. Bradford for her thyroid and osteopenia Reports no additional complaints and Denies polydipsia Paddy/Lymph Reports no additional complaints Aller/Immun Denies seasonal rhinorrhea Physical exam (Primary Care) Vital Signs: Last Vital Signs Temp 98.5 F 09/10/24 09:05 Pulse 76 09/10/24 09:05 Resp 16 09/10/24 09:05 BP 134/80 09/10/24 09:05 Pulse Ox 97 09/10/24 09:05 Oxygen Delivery Method Room Air 09/10/24 09:05 Tobacco/Smoking Status: Tobacco use Status Tobacco use date assessed 09/10/24 09/10/24 09:03 Patient Tobacco Use Status Never used Tobacco 09/10/24 09:03 e-Cigarette/Vaping Use Never Used 09/10/24 09:03 PHQ-9: PHQ-9 Score PHQ-9: Total score 0 09/10/24 09:03 Depression Screening Interpretation: Negative Thrive Assessment: Date of Thrive Assessment Date Thrive assessed 09/04/24 09/10/24 09:03 Currently or been in a relationship where the following occur: No concerns rep orted Const Other: Alert oriented x3, no acute distress noted, ambulatory with normal gait HENMT Head: Yes normocephalic Ears: external ears normal General nose exam: Normal external nose present Face and sinus: Yes face symmetric Mouth: Normal oral and palatal mucosa present, oropharynx normal and moist mucous membranes Eyes General: appearance normal, both eyes and all related structures Neck Neck: Yes full ROM, Yes no lymphadenopathy and Yes supple Chest Breast/axilla palpation: normal palpation of the breasts and normal palpation of the axillae Resp Auscultation: clear to auscultation bilaterally Cardio Other: S1-S2 present regular rate and rhythm GI Other: Normal bowel sounds, soft, nontender, no mass palpated General: Yes no CVA tenderness and Yes deferred Back/Spine/Pelvis Back: no CVA tenderness and No back tenderness Skin Other: Slightly rough hyperpigmented patch on left lower cheek Neuro General: gait normal, tone normal, moves all extremities, Normal light touch and pain sensation, no focal motor deficits and CN's II-XI intact bilaterally Extrem General: Yes full ROM, Yes no joint enlargement, Yes no pedal edema, Yes no calf tenderness and Yes normal gait Psych Appearance: grossly normal and well kempt Mental Status: mental status grossly normal Speech and movement: Normal speech and movement present Affect: normal affect Attitude: cooperative Thought process: Normal thought process present Thought content: Normal thought content present Results Reviewed Results Reviewed: Name: Anusha Mercado Age/Sex: 69/F : 1955 Unit#: [id number] Attend Dr: Mary Wood MD Re09/02/24 Status: DEP REF Location: [facility] Disch: SPEC : [id number] SWAPNIL: 09/02/24 STATUS: COMP REQ : [id number] RECD: 09/02/[address] [facility] [address]: Mary Wood MD COMP: 09/02/24 ENTERED: 09/02/24 [facility] DR: ORDERED: Met Prof Fast, AST, ALT, Lipid Panel, Vitamin D 25-OH, TSH Rflx Test Result Flag Reference Sodium 139 135-145 mmol/L Potassium 4.1 3.3-5.1 mmol/L CL 105 96-108 mmol/L CO2 25 22-29 mmol/L Gap 13 12-20 BUN 12 9-16 mg/dL Creat 0.80 0.5-1.4 mg/dL eGFR > 60 Chronic Kidney Disease: Estimated GFR < 60 mL/min/1.73m2 Severe Kidney Disease: Estimated GFR < 15 mL/min/1.73m2 FBS 104 H 60-99 mg/dL A fasting glucose from 100-125 mg/dl is considered impaired (pre-diabetes). CA 8.7 # 8.4-10.2 mg/dL AST (GOT) 24 5-31 U/L ALT (GPT) 18 0-31 U/L Triglyceride 133 <150 mg/dL Desirable Triglyceride: less than 150 mg/dL Borderline High Triglyceride 150-199 mg/dL High Triglyceride: 200-499 mg/dL Very High Triglyceride: greater than or equal to 5OO mg/dL Cholesterol 188 <200 mg/dL Desirable Cholesterol: less than 200 mg/dL Borderline High Cholesterol: 200-239 mg/dL High Cholesterol: greater than 239 mg/dL LDL Calculated 118 H <100 mg/dL Desirable LDL: less than 100 mg/dL Near Optimal/Above Optimal LDL: 110-129 mg/dL Borderline High LDL: 130-159 mg/dL High LDL: 160-189 mg/dL Very High LDL: greater than or equal to 190 mg/dL HDL 44 >40 mg/dL Desirable HDL: greater than 40 mg/dL Note: This HDL assay may give artificially low results in patients with liver disease. Vitamin D 25-OH 63.4 >30 ng/mL Health Based Reference Values* < 20 ng/mL Deficient 20-30 ng/mL Insufficient > 30 ng/mL Sufficient *Diego FOSTER. N Engl J Med. 2007;357:266-280 There is no well-established upper level of normal vitamin D levels. Some laboratories use 50 ng/mL as an upper limit of normal. However, toxicity is patient-dependent and may occur at any level. Careful correlation with the patient's presentation is necessary and, if there is concern for vitamin D toxicity, treatment should be considered irrespective of the serum level. Care must be taken in interpreting Vitamin D results from different laboratories and methodologies. Published data demonstrated that results from patients undergoing hemodialysis may show a negative bias when tested with various automated 25-OH vitamin D assays when compared to LC-MS/MS. When testing samples from patients whose predominant form of Vitamin D is Vitamin D2, such as patients receiving Vitamin D2 supplementation, results that are subtherapeutic should be confirmed with another method such as LC-MS/MS. TSH 3.05 0.32-4.0 uIU/mL Coding Level of Care Code Est Pt Prev Care >65y(69967) Diagnoses Annual visit for general adult medical examination with abnormal findings Z00.01 Anxiety and depression F41.9; F32.A Mixed dyslipidemia E78.2 Osteopenia of left hip M85.852 Osteopenia location: hip Laterality: left Essential hypertension I10 Nontoxic multinodular goiter E04.2 Skin lesion of face L98.9 Additional Codes PHQ-9 - 09987 - PHQ-9 Billing: Yes ([id number]) Assessment & Plan Assessment & Plan (1) Annual visit for general adult medical examination with abnormal findings: Code(s): Z00.01 - Encounter for general adult medical examination with abnormal findings Plan: Up-to-date with her breast cancer screening, last mammogram was done 04/01/2024 with benign findings. She had also a bone density scan done last 05/22/2024 which showed mild osteopenia in left femoral neck, normal in lumbar spine and left femur, improved from last bone density scan in 2021, no history of fractures. Currently takes calcium citrate and cholecalciferol 50 mcg daily.. Walks regularly for exercise. Up-to-date with her screening colonoscopy done 10/23/2023 , done by Dr. Matias which showed mild colitis, diverticulosis and internal hemorrhoids, no polyps seen, to be repeated in 5 years due to history of tubular adenoma polyp in the past. She sees Dr. Sewell for her routine eye exam. [facility] [employer] for her routine pelvic and cervical cancer screening, last done a year ago, no further cervical screening is indicated per patient. Anxiety depression stable and well controlled on fluoxetine. Up-to-date with all her vaccines but does not get any further COVID and does not want to get the RSV. Recent fasting labs showed lipids, fasting glucose, electrolytes renal function vitamin-D within normal limit (2) Anxiety and depression: Code(s): F41.9 - Anxiety disorder, unspecified; F32.A - Depression, unspecified Category: Medical Plan: Controlled on fluoxetine will continue on current dose of 20 mg daily (3) Mixed dyslipidemia: Code(s): E78.2 - Mixed hyperlipidemia Category: Medical Plan: Improved lipid levels, continue atorvastatin 10 mg daily in addition to adherence to healthy eating habits and getting regular exercise repeat another fasting lipid panel in six-month (4) Osteopenia: Code(s): M85.80 - Other specified disorders of bone density and structure, unspecified site Category: Medical Qualifiers: Osteopenia location: hip Laterality: left Qualified Code(s): M85.852 - Other specified disorders of bone density and structure, left thigh Plan: Osteopenia mainly in left femoral neck which has improved as compared to last bone density in 2021. Continue taking calcium citrate and cholecalciferol 50 mcg daily in addition to getting regular exercise (5) Essential hypertension: Code(s): I10 - Essential (primary) hypertension Category: Medical Plan: Blood pressure at goal of less than 130/80. Continue atenolol 50 mg daily Reinforced importance of following a low sodium diet, getting regular exercise, and lowering stress levels. (6) Nontoxic multinodular goiter: Comment: followed by [facility] endocrinology clinic Code(s): E04.2 - Nontoxic multinodular goiter Category: Medical Plan: Followed by endocrine clinic at [facility] (7) Skin lesion of face: Code(s): L98.9 - Disorder of the skin and subcutaneous tissue, unspecified Category: Medical Plan: Has an appointment to be seen at [facility] for further evaluation management Orders: Orders Alanine Aminotransferase 03/12/25 E78.2 - Mixed hyperlipidemia, F32.A - Depression, unspecified, F41.9 - Anxiety disorder, unspecified, I10 - Essential (primary) hypertension, M85.852 - Other specified disorders of bone density and structure, left thigh, Z78.0 - Asymptomatic menopausal state Vitamin D 25-OH Total 03/12/25 E78.2 - Mixed hyperlipidemia, F32.A - Depression, unspecified, F41.9 - Anxiety disorder, unspecified, I10 - Essential (primary) hypertension, M85.852 - Other specified disorders of bone density and structure, left thigh, Z78.0 - Asymptomatic menopausal state Lipid Panel 03/12/25 E78.2 - Mixed hyperlipidemia, F32.A - Depression, unspecified, F41.9 - Anxiety disorder, unspecified, I10 - Essential (primary) hypertension, M85.852 - Other specified disorders of bone density and structure, left thigh, Z78.0 - Asymptomatic menopausal state Aspartate Amino Transferase 03/12/25 E78.2 - Mixed hyperlipidemia, F32.A - Depression, unspecified, F41.9 - Anxiety disorder, unspecified, I10 - Essential (primary) hypertension, M85.852 - Other specified disorders of bone density and structure, left thigh, Z78.0 - Asymptomatic menopausal state Basic Metabolic Panel Fasting 03/12/25 E78.2 - Mixed hyperlipidemia, F32.A - Depression, unspecified, F41.9 - Anxiety disorder, unspecified, I10 - Essential (primary) hypertension, M85.852 - Other specified disorders of bone density and structure, left thigh, Z78.0 - Asymptomatic menopausal state
[2024-09-10 09:05] VITALS: BP 134/80; PULSE 76; RESP 16; TEMP 36.9; O2SAT 97
== END 2024-09-10 09:47 | disposition home or self-care (01) ==
LOC: HO.HMCC 08:41
PROVIDERS: PCP Internal Medicine; Visit Provider Internal Medicine
DX: Z00.01 Encounter for general adult medical examination with abnormal findings (principal); F41.9 Anxiety disorder, unspecified; F32.A Depression, unspecified; E78.2 Mixed hyperlipidemia; M85.852 Other specified disorders of bone density and structure, left thigh; I10 Essential (primary) hypertension; E04.2 Nontoxic multinodular goiter; L98.9 Disorder of the skin and subcutaneous tissue, unspecified

== ENCOUNTER → 2024-09-10 08:40 | Outpatient (BNVA) | payer MEDICARE, SELFPAY | PROVIDERS: PCP Internal Medicine; Visit Provider Internal Medicine | DX: Z00.01 Encounter for general adult medical examination with abnormal findings (principal); F41.9 Anxiety disorder, unspecified; F32.A Depression, unspecified; E78.2 Mixed hyperlipidemia; M85.852 Other specified disorders of bone density and structure, left thigh; I10 Essential (primary) hypertension; E04.2 Nontoxic multinodular goiter; L98.9 Disorder of the skin and subcutaneous tissue, unspecified | CPT/HCPCS: 96127; 99397 ==

== ENCOUNTER 2025-03-31 07:20 | Outpatient (REF) | payer MEDICARE, SELFPAY ==
--- OUTSIDE RECORDS SUMMARY | 2025-03-31 07:22 | XMS_ITS | Encounter Summary ---
Author Organization [facility] Address [address] [place] [id number] Phone Care Team Providers Care Clinical Rehab Liaison Name Role Phone Pcp, Unknown Primary Care Provider Mary Dinae MD Primary Care Provider Encounter Details Date Type Department Care Team (Late st Contact Info) Description 04/03/2024 Ancillary Orders [address] [address] System, Provider Not In, [facility] [address] [address] Social History Tobacco Use Types Packs/Day Years Used Date Smoking Tobacco: Never Assessed Education Answer Date Recorded Are you interested in more education? Not on brandie e 04/20/2023 Are you concerned about learning? Not on file 04/20/2023 No 04/20/2023 No 04/20/2023 Digital Access Answer Date Recorded No 04/20/2023 No 04/20/2023 Reliable internet access at home? Not on file 04/20/2023 Device with a working camera? Not on file Comments Unknown Sex and Gender Information Value Date Recorded Sex Assigned at Not on file Legal Sex Female 11:08 AM EDT Gender Identity Not on file Sexual Orientation Not on file documented as of this encounter Plan of Treatment Not on file documented as of this encounter Results * DXA Outside (No Interpretation) (04/21/2020 12:00 AM EST) Narrative Record[place]ka 04/03/2024 11:04 AM EDT This study is for PACS storage only and not for interpretation. Procedure Note Record, 04/03/2024 This study is for PACS storage only and not for interpretation. us Provider Not In System PhD IMG OUTSIDE IMAGING W /OUT INTERPRETATION Final Result documented in this encounter Visit Diagnoses Not on filedocumented in this encounter Care Teams Clinical Rehab Liaison Relationship Specialty Start Date End Date Pcp, Unknown PCP - General 03/28/23 04/14/24 Mary Wood MD [facility] [place] [id number] PCP - General Internal Medicine 04/15/24 documented as of this encounter Additional Source Comments The information contained in this document represents components of the legal health record. It is not the complete legal health record.[facility]
--- OUTSIDE RECORDS SUMMARY | 2025-03-31 07:22 | XMS_ITS | Clinical Summary ---
Author Organization [facility] Address [address] [place] [phone] Phone Care Team Providers Care Director Translation Name Role Phone Mary Wood MD Primary Care Provider Allergies Active Allergy Reactions Criticality Noted Date Comments Amoxicillin Hives 04/15/2024 Lisinopril Cough 04/15/2024 Medications FLUoxetine (PROZAC) 20 MG capsule Take 20 mg by mouth daily. Active atenolol (TENORMIN) 50 mg tablet Take 50 mg by mouth daily. Active atorvastatin (LIPITOR) 10 MG tablet Take 10 mg by mouth daily. Active cholecalciferol (VITAMIN D3) 25 MCG (1,000 unit) tablet Take 1,000 Units by mouth daily. Active calcium citrate/vitamin D3 (CALCIUM CITRATE + D ORAL) Take 630 mg by mouth daily. 630 mg Calcium Citrate, 12.5 mcg D3 Active omega 4-zgz-ata-fish oil (FISH OIL) 1,200 (144-216) mg Cap Take 1,200 mg by mouth daily. Active multivit with calcium,iron,min (WOMEN'S DAILY MULTIVITAMIN ORAL) Take 1 tablet by mouth daily. Active Active Problems Problem Noted Date Diagnosed Date Osteopenia of hip 04/21/2024 History of parathyroidectomy 04/21/2024 History of lobectomy of thyroid 04/21/2024 Social History Tobacco Use Types Packs/Day Years Used Date Smoking Tobacco: Never Smokeless Tobacco: Never Education Answer Date Recorded Are you interested [...] on file Sexual Orientation Not on file Last Filed Vital Signs Vital Sign Reading Time Taken Comments Blood Pressure 128/80 04/15/2024 11:21 AM EST Pulse 60 04/15/2024 11:21 AM EST Temperature - - Respiratory Rate - - Oxygen Saturation - - Inhaled Oxygen Concentration - - Weight 74.4 kg (164 lb) 04/15/2024 11:21 AM EST Height 153 cm (5' 0.24 ) 04/15/2024 11:21 AM EST Body Mass Index 31.78 04/15/2024 11:21 AM EST Plan of Treatment Health Maintenance Due Date Last Done Comments Adult Td,Tdap Booster 1955 LIPID PANEL 1955 DEPRESSION SCREENING 1965 HEPATITIS C SCREENING 1971 MAMMOGRAM 1993 COLOGUARD 1998 COLONOSCOPY 1998 COLORECTAL CANCER SCREENING 1998 FIT TEST 1998 FOBT 1998 SIGMOIDOSCOPY 1998 VIRTUAL COLONOSCOPY 1998 PNEUMOCOCCAL VACCINES (50+ y ears) (1 of 1 - PCV) 2003 ZOSTER VACCINES (1 of 2) 2003 INFLUENZA VACCINE (#1) 2025 COVID-19 VACCINE ( - 2024-2 6 season) 2025 RSV VACCINE (1 - 1-dose 75+ series) 2028 OSTEOPOROSIS SCREENING INITI AL (ONE-TIME) Completed 04/15/2024 SMOKING STATUS SCREENING (On ce After 26 Yrs) Completed 04/15/2024 HEPATITIS A VACCINES Aged Out No long er eligible based on patient's age to complete this topic HIB VACCINES Aged Out No longer eligi ble based on patient's age to complete this topic MENINGOCOCCAL VACCINES (ACWY) Aged Out No longer eligible based on patient's age to complete this topic MENINGOCOCCAL VACCINES (B) Aged Out N o longer eligible based on patient's age to complete this topic Medical Devices Not on file Procedures Procedure Name Priority Date/Time Associated Diagnosis Comments BD DXA SCREENING Routine 04/15/2024 12:0 7 PM EST Osteopenia of hip, unspecified laterality History of parathyroidectomy from Last 3 Months or Most Recently Relevant to Health Maintenance [facility] [place] [facility] MEDICARE PPO BLUE REPLACEMENT [facility] [place] [facility] MEDICARE PPO BLUE REPLACEMENT [facility] MEDICARE PPO BLUE REPLACEMENT [facility] MEDIC[facility] PPO BLUE REPLACEMENT KRISTY HILL [place] [facility] MEDICARE PPO BLUE REPLACEMENT KRISTY HILL [place] [facility] MEDICARE PPO BLUE REPLACEMENT Care Teams Director Translation Relationship Specialty Start Date End Date Mary Wood MD [address] [place] [address] PCP - General Internal Medicine 04/15/24 Additional Source Comments The information contained in this document represents components of the legal health record. It is not the complete legal health record.[facility]
--- OUTSIDE RECORDS SUMMARY | 2025-03-31 07:22 | XMS_ITS | Encounter Summary ---
Author Organization [facility] Address [address] [place] [phone] Phone Care Team Providers Care Speech Therapy Teacher Name Role Phone Pcp, Unknown Primary Care Provider Mary Diane MD Primary Care Provider Encounter Details Date Type Department Care Team (Late st Contact Info) Description 04/03/2024 Ancillary Orders [address] [address] System, Provider Not In, [facility] [address] [address] Social History Tobacco Use Types Packs/Day Years [...] encounter Results * DXA Outside (No Interpretation) (11/16/2017 12:00 AM EDT) Narrative Record, Alka Barba 04/03/2024 11:08 AM EDT This study is for PACS storage only and not for interpretation. Procedure Note Record, - 04/03/2024 This study is for PACS storage only and not for interpretation. us Provider Not In System PhD IMG OUTSIDE IMAGING W /OUT INTERPRETATION Final Result documented in this encounter Visit Diagnoses Not on filedocumented in this encounter Care Teams Speech Therapy Teacher Relationship Specialty Start Date End Date Pcp, Unknown PCP - General 03/28/23 04/14/24 Mary Wood MD [facility] [place] [address] PCP - General Internal Medicine 04/15/24 documented as of this encounter Additional Source Comments The information contained in this document represents components of the legal health record. It is not the complete legal health record.[facility]
--- OUTSIDE RECORDS SUMMARY | 2025-03-31 07:22 | XMS_ITS | Encounter Summary ---
Author Organization [facility] Address [address] [place] [phone] Phone Care Team Providers Care Pig Machine Supervisor Name Role Phone Pcp, Unknown Primary Care Provider Mary Diane MD Primary Care Provider Encounter Details Date Type Department Care Team (Late st Contact Info) Description 04/03/2024 Ancillary Orders [address] [address] System, Provider Not In, [facility] [address] [address] Social History Tobacco Use Types Packs/Day Years [...] encounter Results * DXA Outside (No Interpretation) (04/22/2022 12:00 AM EST) Narrative Record, Alka Barba 04/03/2024 10:59 AM EDT This study is for PACS storage only and not for interpretation. Procedure Note Record, - 04/03/2024 This study is for PACS storage only and not for interpretation. us Provider Not In System PhD IMG OUTSIDE IMAGING W /OUT INTERPRETATION Final Result documented in this encounter Visit Diagnoses Not on filedocumented in this encounter Care Teams Pig Machine Supervisor Relationship Specialty Start Date End Date Pcp, Unknown PCP - General 03/28/23 04/14/24 Mary Wood MD [facility] [place] [address] PCP - General Internal Medicine 04/15/24 documented as of this encounter Additional Source Comments The information contained in this document represents components of the legal health record. It is not the complete legal health record.[facility]
[2025-03-31 10:57] LABS: Alanine Aminotransferase 15 U/L (0-31); Anion Gap 12 (12-20); Aspartate Amino Transferase 25 U/L (5-31); Blood Urea Nitrogen 13 mg/dL (9-16); Calcium 9.0 mg/dL (8.4-10.2); Carbon Dioxide 25 mmol/L (22-29); Chloride 105 mmol/L (96-108); Cholesterol 171 mg/dL (<200); Estimated Glomerular Filt Rate > 60; HDL Cholesterol 42 mg/dL (>40); Potassium 3.9 mmol/L (3.3-5.1); Sodium 138 mmol/L (135-145); Triglycerides 112 mg/dL (<150)
== END 2025-03-31 07:21 | disposition home or self-care (01) ==
LOC: HO.HMGCLDS 07:20
PROVIDERS: PCP Internal Medicine; Visit Provider Internal Medicine
DX: E78.2 Mixed hyperlipidemia (principal); F41.8 Other specified anxiety disorders; M85.852 Other specified disorders of bone density and structure, left thigh; I10 Essential (primary) hypertension; Z78.0 Asymptomatic menopausal state
CPT/HCPCS: 36415; 80048; 80061; 82306; 84450; 84460

== ENCOUNTER 2025-04-07 10:05 | Outpatient (AMB) | payer MEDICARE, SELFPAY ==
--- NOTE | 2025-04-07 10:57 | A.OFFPC_ITS ---
Vital Signs 04/07/25 10:58 04/07/25 11:30 Height 5 ft 1 in Weight 161 lb BMI 30.4 BP 152/82 H 140/90 H Blood Pressure Location Rt brachial Lt brachial Position Sitting Sitting Respiration 15 Pulse 61 Pulse Source Pulse Oximeter Pulse Oximetry (%) 96 Oxygen Delivery Method Room Air Intake Visit Reasons: 6 months f/up Intake Note: Pt is here today for her 6mo. f/u Pharmacy Intake Coordinator Required: No Allergies amoxicillin Allergy (Unknown, Verified 04/07/25 11:13) hives lisinopril Adverse Reaction (Unknown, Verified 04/07/25 11:13) cough Medication List - Last Reconciled 04/07/25 by Mary Wood MD atenolol 50 mg PO DAILY atorvastatin 10 mg PO DAILY calcium citrate 200 mg PO DAILY cholecalciferol (vitamin D3) 50 mcg PO DAILY fluoxetine 20 mg PO DAILY multivit with min-folic acid 200 mcg (Adult Multivitamin Gummies) tabs PO Tobacco use date assessed: 04/07/25 Fall risk assessment: No Falls in past year Last assessed Fall Risk: 04/07/25 Dental Screening Dental Screen Date: 04/07/25 Did you have a dental visit in the last 12 months?: Yes Did you have a dental problem in the last 6 months where you did not have access to dental care?: No Was dental information given to patient?: Patient has dentist HPI 6 months f/up HPI Details The patient is a 70-year-old female presenting for a follow-up visit. She has a history of fluctuating blood pressure, with readings going up and down, and takes atenolol 50 mg each morning. Today's elevated reading is possibly related to acute stress experienced this morning regarding her pet. A recent blood pressure reading at her [facility] appointment was 110/62 mmHg. The patient's past medical history is significant for breast cancer, for which she follows up annually with Dr. Kristie Bustillos at the [facility]. A recent mammogram on April 04, 2025, showed no evidence of malignancy, has not undergone genetic testing for breast cancer. She has a history of precancerous polyps and colitis, necessitating colonoscopies every five years, with the next one due in 2028. A bone density scan last year revealed bone thinning in the left hip, with follow-up scans planned every two years. Her LDL cholesterol recently decreased from 118 to 107 mg/dL while on atorvastatin 10 mg. Her lab results for electrolytes, kidney function, liver function, and blood sugar are normal. The patient has had cataract surgery on both eyes and uses glasses only for reading. She has a history of ear wax buildup. Regarding immunizations, she has received the flu shot, shingles vaccine, and is up to date on her tetanus shot. [facility] Medical History (Updated 04/07/25 @ 11:15 by Mary Wood MD) Bilateral impacted cerumen Anxiety and depression History of primary hyperparathyroidism Mixed dyslipidemia History of invasive breast cancer Osteopenia Menopause Essential hypertension Nontoxic multinodular goiter Surgical History S/P lumpectomy, left breast Hx of colonoscopy History of partial thyroidectomy History of parathyroidectomy Family History Father Skin cancer HTN (hypertension) Diabetes mellitus Mother Stroke Brother Depression Brother No problems noted. Sister No problems noted. Sister No problems noted. Son No problems noted. Daughter No problems noted. Social History Housing: House Alcohol intake: never Patient Tobacco Use Status: Never used Tobacco e-Cigarette/Vaping Use: Never Used Second Hand Smoke Exposure: No Current occupational status: retired Cognitive needs: No Hearing needs: No Vision needs: Yes Questionnaire PHQ-9 Over the last 2 weeks, how often have you been bothered by any of the following problems? 1. Little interest or pleasure in doing things: not at all 2. Feeling down, depressed, or hopeless: not at all 3. Trouble falling or staying asleep, or sleeping too much: not at all 4. Feeling tired or having little energy: not at all 5. Poor appetite or overeating: not at all 6. Feeling bad about yourself - or that you are a failure or have let yourself or your family down: not at all 7. Trouble concentrating on things, such as reading the newspaper or watching television: not at all 8. Moving or speaking so slowly that other people could have noticed. Or the opposite - being so fidgety or restless that you have been moving around a lot more than usual: not at all 9. Thoughts that you would be better off or of hurting yourself in some way: not at all Total score: 0 Depression Screening Interpretation: Negative (Depression controlle on fluoxetine 20 mg daily) Depression Screening Done: Yes Source: Developed by Drs. Jarvis Sagastume, Mary Lara, Ric Alberts and colleagues, with an educational tom from [email or web address]. Thrive Questionnaire Date Thrive assessed: 09/04/24 I am a: Patient What is your living situation today?: I have a steady place to live Within the past 12 months, did the food you bought not last and you didn't have the money to get more?: Never true Within the past 12 months, did you worry whether your food would run out before you got money to buy more?: Never true Do you have trouble paying for medicines?: No Do you have trouble getting transportation to medical appointments?: No Do you have trouble paying your heating and electricity bill?: No Do you have trouble taking care of your child, family member or friend?: No Do you have trouble with day-to-day activities such as bathing, preparing meals, shopping, managing finances, etc.?: No Are you currently unemployed and looking for a job?: No Are you interested in more education?: No Please select the resources that you would like help with: None Currently or been in a relationship where the following occur: No concerns reported THRIVE Score: 0 AUDIT C Alcohol Use Questionnaire (AUDIT-C) 1. How often do you have a drink containing alcohol?: Monthly or less 2. How many drinks containing alcohol do you have on a typical day when you are drinking?: 1 or 2 3. How often do you have six or more drinks on one occasion?: Never Total Score: 1 HEATHER-7 AMB Questionnaire HEATHER-7 Date HEATHER - 7 assessed: 09/10/24 Feeling nervous, anxious, or on edge: 0 = Not at all Not being able to stop or control worryin = Not at all Worrying too much about different things: 0 = Not at all Trouble relaxin = Not at all Being so restless that it is hard to sit still: 0 = Not at all Becoming easily annoyed or irritable: 0 = Not at all Feeling afraid as if something awful might happen: 0 = Not at all Total HEATHER-7 score (0-4 normal; 5-9 mild; 10-14 moderate; 15-21 severe): 0 Source: Developed by Drs. Jarvis Sagastume, Mary Lara, Ric Alberts and colleagues, with an educational tom from [email or web address]. Review of Systems Const Denies body aches, Denies fever(s), Denies headache(s) and Denies lethargy Eyes Details: sees Dr Sewell yearly Denies change in vision ENT Details: Gets dental cleaning every 6 months Denies headache(s), Denies nasal congestion, Denies nasal discharge and Denies sore throat Card Denies chest pain, Denies lightheadedness and Denies dyspnea Resp Denies cough and Denies dyspnea GI Denies abdominal pain, Denies melena, Denies hematochezia, Denies change in bowel habits and Denies heartburn Denies urinary frequency, Denies dysuria and Denies urinary urgency Musc Denies back pain, Denies myalgias, Denies arthralgias and Denies muscle weakness Skin/Breast Details: goes to [facility] for her mammogram, sees [facility] for her routine skin check Reports system reviewed and no additional complaints, except as documented Neuro Reports no additional complaints and Denies headache(s) Psych Reports no additional complaints Endo Details: Has an appointment for follow-up with Dr. Bradford for her thyroid and osteopenia Reports no additional complaints and Denies polydipsia Paddy/Lymph Reports no additional complaints Aller/Immun Denies seasonal rhinorrhea Physical exam (Primary Care) Vital Signs: Last Vital Signs Pulse 61 04/07/25 10:58 Resp 15 04/07/25 10:58 BP 140/90 H 04/07/25 11:30 Pulse Ox 96 04/07/25 10:58 Oxygen Delivery Method Room Air 04/07/25 10:58 BMI result Body Mass Index 30.4 Tobacco/Smoking Status: Tobacco use Status Tobacco use date assessed 04/07/25 04/07/25 11:03 Patient Tobacco Use Status Never used Tobacco 04/07/25 10:59 e-Cigarette/Vaping Use Never Used 04/07/25 10:59 PHQ-9: PHQ-9 Score PHQ-9: Total score 0 04/07/25 11:18 Depression Screening Interpretation: Negative (Depression controlle on fluoxetine 20 mg daily) Thrive Assessment: Date of Thrive Assessment Date Thrive assessed 09/04/24 04/07/25 10:59 Currently or been in a relationship where the following occur: No concerns reported Const Other: Alert oriented x3, no acute distress noted, ambulatory with normal gait HENMT Head: Yes normocephalic Ears: Abnormal EAC present excessive cerumen (right ear canal is clear of cerumen. The left ear canal has a hard, ball-like cerumen impaction that is approximately 25% occlusive.) on the left General nose exam: Normal external nose present Face and sinus: Yes face symmetric Mouth: Normal oral and palatal mucosa present and moist mucous membranes Eyes General: appearance normal, both eyes and all related structures Neck Neck: Yes full ROM, Yes no lymphadenopathy and Yes supple Resp Auscultation: clear to auscultation bilaterally Cardio Other: S1-S2 present regular rate and rhythm GI Other: Normal bowel sounds, soft, nontender, no mass palpated General: Yes no CVA tenderness and Yes deferred Back/Spine/Pelvis Back: no CVA tenderness and No back tenderness Neuro General: gait normal, tone normal, moves all extremities, Normal light touch and pain sensation, no focal motor deficits and CN's II-XI intact bilaterally Extrem General: Yes full ROM, Yes no joint enlargement, Yes no pedal edema, Yes no calf tenderness and Yes normal gait Psych Appearance: grossly normal and well kempt Mental Status: mental status grossly normal Speech and movement: Normal speech and movement present Affect: normal affect Results Reviewed Results Reviewed: Name: Anusha Mercado Age/Sex: 70/F : 1955 Unit#: [id number] Attend Dr: Mary Wood MD Re03/31/25 Status: [facility]P [facility] SPEC : [id number] SWAPNIL: 03/31/25 STATUS: COMP REQ : [id number] RECD: 03/31/[address]: Mary Wood MD COMP: 03/31/25 ENTERED: 03/31/[address]: ORDERED: Met Prof Fast, AST, ALT, Lipid Panel, Vitamin D 25-OH Test Result Flag Reference Sodium 138 135-145 mmol/L Potassium 3.9 3.3-5.1 mmol/L CL 105 96-108 mmol/L CO2 25 22-29 mmol/L Gap 12 12-20 BUN 13 9-16 mg/dL Creat 0.76 0.5-1.4 mg/dL eGFR > 60 Chronic Kidney Disease: Estimated GFR < 60 mL/min/1.73m2 Severe Kidney Disease: Estimated GFR < 15 mL/min/1.73m2 FBS 97 60-99 mg/dL CA 9.0 8.4-10.2 mg/dL AST (GOT) 25 5-31 U/L ALT (GPT) 15 0-31 U/L Triglyceride 112 <150 mg/dL Desirable Triglyceride: less than 150 mg/dL Borderline High Triglyceride 150-199 mg/dL High Triglyceride: 200-499 mg/dL Very High Triglyceride: greater than or equal to 5OO mg/dL Cholesterol 171 <200 mg/dL Desirable Cholesterol: less than 200 mg/dL Borderline High Cholesterol: 200-239 mg/dL High Cholesterol: greater than 239 mg/dL LDL Calculated 107 H <100 mg/dL Desirable LDL: less than 100 mg/dL Near Optimal/Above Optimal LDL: 110-129 mg/dL Borderline High LDL: 130-159 mg/dL High LDL: 160-189 mg/dL Very High LDL: greater than or equal to 190 mg/dL HDL 42 >40 mg/dL Desirable HDL: greater than 40 mg/dL Note: This HDL assay may give artificially low results in patients with liver disease. Vitamin D 25-OH 54.9 >30 ng/mL Health Based Reference Values* < 20 ng/mL Deficient 20-30 ng/mL Insufficient > 30 ng/mL Sufficient Coding Level of Care Code Est Pt Level 4 (62707) Complex EM visit Add On G2211 Diagnoses Essential hypertension I10 Mixed dyslipidemia E78.2 Osteopenia of left hip M85.852 Laterality: left Osteopenia location: hip Anxiety and depression F41.9; F32.A Assessment & Plan Assessment & Plan (1) Essential hypertension: Code(s): I10 - Essential (primary) hypertension Category: Medical (2) Mixed dyslipidemia: Code(s): E78.2 - Mixed hyperlipidemia Category: Medical (3) Osteopenia: Code(s): M85.80 - Other specified disorders of bone density and structure, unspecified site Category: Medical Qualifiers: Laterality: left Osteopenia location: hip Qualified Code(s): M85.852 - Other specified disorders of bone density and structure, left thigh (4) Anxiety and depression: Code(s): F41.9 - Anxiety disorder, unspecified; F32.A - Depression, unspecified Category: Medical Plan I discussed the patient's elevated blood pressure reading of 140/90 mmHg and noted that it may be a temporary elevation due to acute stress. We will not adjust her atenolol at this time, but I have scheduled her for a nurse-only visit next week to recheck her blood pressure before her trip to ensure it is well-controlled. I reviewed her recent lab results, highlighting the improvement in her LDL cholesterol, and advised her to continue her atorvastatin 10 mg. In response to her question about a recent atorvastatin recall, I explained that these are often lot-specific and recommended she check with her pharmacy to see if her prescription is affected. We confirmed her fluoxetine is working well and she will continue it. We reviewed her preventative screening schedule, noting her recent mammogram was clear and her next colonoscopy is not due until 2028. I advised her that she is due for a new pneumonia vaccine, Prevnar 21, and is also eligible for the RSV vaccine. Regarding her concern about ear wax for her upcoming flight, I performed an ear exam and noted a small amount of hard cerumen in the left ear. I recommended npjg-pfc-[id number] Debrox drops and chewing gum during the flight. The patient was instructed to schedule the BP recheck with the nurse at the front desk specialist. Her next annual physical with blood work is scheduled for September 2025. Patient was informed and verbally consented to the use of an ambient scribe for clinic note documentation during this visit.
[2025-04-07 10:58] VITALS: BP 152/82; PULSE 61; RESP 15; O2SAT 96; BMI 30.4
[2025-04-07 11:30] VITALS: BP 140/90
--- OUTSIDE RECORDS SUMMARY | 2025-04-07 12:03 | XMS_ITS | Encounter Summary ---
Author Organization [facility] Address [address] [place] [address] Phone Care Team Providers Care It Consulting Director Name Role Phone Pcp, Unknown Primary Care Provider Mary Diane MD Primary Care Provider Encounter Details Date Type Department Care Team (Late st Contact Info) Description 04/03/2024 Ancillary Orders [address] [address] System, Provider Not In, [facility] [address] [address] Social History Tobacco Use Types Packs/Day Years [...] on filedocumented in this encounter Care Teams It Consulting Director Relationship Specialty Start Date End Date Pcp, Unknown PCP - General 03/28/23 04/14/24 Mary Wood MD [facility] [place] [address] PCP - General Internal Medicine 04/15/24 documented as of this encounter Additional Source Comments The information contained in this document represents components of the legal health record. It is not the complete legal health record.[facility]
--- OUTSIDE RECORDS SUMMARY | 2025-04-07 12:03 | XMS_ITS | Encounter Summary ---
Author Organization [facility] Address [address] [place] [phone] Phone Care Team Providers Care Hand Bootmaker Name Role Phone Pcp, Unknown Primary Care Provider Mary Diane MD Primary Care Provider Encounter Details Date Type Department Care Team (Late st Contact Info) Description 04/03/2024 Ancillary Orders [address] [address] System, Provider Not In, [facility] [address] [address] Social History Tobacco Use Types Packs/Day Years [...] on filedocumented in this encounter Care Teams Hand Bootmaker Relationship Specialty Start Date End Date Pcp, Unknown PCP - General 03/28/23 04/14/24 Mary Wood MD [facility] [place] [address] PCP - General Internal Medicine 04/15/24 documented as of this encounter Additional Source Comments The information contained in this document represents components of the legal health record. It is not the complete legal health record.[facility]
--- OUTSIDE RECORDS SUMMARY | 2025-04-07 12:03 | XMS_ITS | Encounter Summary ---
Author Organization [facility] Address [address] [place] [phone] Phone Care Team Providers Care File Clerk Data Entry Name Role Phone Pcp, Unknown Primary Care Provider Mary Diane MD Primary Care Provider Encounter Details Date Type Department Care Team (Late st Contact Info) Description 04/03/2024 Ancillary Orders [address] [address] System, Provider Not In, PhD Partners [address] [address] Social History Tobacco Use Types Packs/Day Years [...] on filedocumented in this encounter Care Teams File Clerk Data Entry Relationship Specialty Start Date End Date Pcp, Unknown PCP - General 03/28/23 04/14/24 Mary Wood MD [facility] [place] [address] PCP - General Internal Medicine 04/15/24 documented as of this encounter Additional Source Comments The information contained in this document represents components of the legal health record. It is not the complete legal health record.[facility]
--- OUTSIDE RECORDS SUMMARY | 2025-04-07 12:03 | XMS_ITS | Clinical Summary ---
Author Organization [facility] Address [address] [place] [phone] Phone Care Team Providers Care Building Specialist Name Role Phone Mary Wood MD Primary [...] Calcium Citrate, 12.5 mcg D3 Active omega 3-zlk-lnr-fish oil (FISH OIL) 1,200 (144-216) mg Cap [...] Recently Relevant to Health Maintenance [facility] [place] [facility]IC[facility] PPO BLUE REPLACEMENT [facility] [place] [facility] MEDICARE PPO BLUE REPLACEMENT [facility] MEDICARE PPO BLUE REPLACEMENT [facility] MEDIC[facility] PPO BLUE REPLACEMENT [place] [facility] MEDICARE PPO BLUE REPLACEMENT [place] [facility] MEDICARE PPO BLUE REPLACEMENT Care Teams Building Specialist Relationship Specialty Start Date End Date Mary Wood MD [address] [facility] [place] [address] PCP - General Internal Medicine 04/15/24 Additional Source Comments The information contained in this document represents components of the legal health record. It is not the complete legal health record.[facility]
== END 2025-04-07 11:32 | disposition home or self-care (01) ==
LOC: HO.HMCC 10:06
PROVIDERS: PCP Internal Medicine; Visit Provider Internal Medicine
DX: I10 Essential (primary) hypertension (principal); E78.2 Mixed hyperlipidemia; M85.852 Other specified disorders of bone density and structure, left thigh; F41.9 Anxiety disorder, unspecified; F32.A Depression, unspecified

== ENCOUNTER → 2025-04-07 10:05 | Outpatient (BNVA) | payer MEDICARE, SELFPAY | PROVIDERS: PCP Internal Medicine; Visit Provider Internal Medicine | DX: I10 Essential (primary) hypertension (principal); E78.2 Mixed hyperlipidemia; M85.852 Other specified disorders of bone density and structure, left thigh; F41.9 Anxiety disorder, unspecified; F32.A Depression, unspecified | CPT/HCPCS: 96127; 99212 ==

== ENCOUNTER → 2025-04-24 09:59 | Outpatient (BNVA) | payer MEDICARE, SELFPAY | PROVIDERS: PCP Internal Medicine | DX: I10 Essential (primary) hypertension (principal) | CPT/HCPCS: 99211 ==

== ENCOUNTER 2025-05-05 14:26 | Outpatient (AMB) | payer MEDICARE, SELFPAY ==
--- NOTE | 2025-05-05 14:51 | A.OFFPC_ITS ---
Vital Signs 05/05/25 14:52 Height 5 ft 1 in Weight 162 lb BMI 30.6 BP 138/68 Blood Pressure Location Lt brachial Position Sitting Respiration 16 Pulse 70 Pulse Source Pulse Oximeter Temp 97.9 F Temp Source Oral Pulse Oximetry (%) 99 Oxygen Delivery Method Room Air Intake Visit Reasons: BP check with provider Intake Note: Pt is here today for a B/P check Veterans Contact Representative Required: No Allergies amoxicillin Allergy (Unknown, Verified 05/12/25 01:27) hives lisinopril Adverse Reaction (Unknown, Verified 05/12/25 01:27) cough Medication List - Last Reconciled 05/12/25 by Mary Wood MD atenolol 50 mg PO DAILY atorvastatin 10 mg PO DAILY calcium citrate 200 mg PO DAILY cholecalciferol (vitamin D3) 50 mcg PO DAILY fluoxetine 20 mg PO DAILY losartan 50 mg PO DAILY multivit with min-folic acid 200 mcg (Adult Multivitamin Gummies) tabs PO Tobacco use date assessed: 05/05/25 Fall risk assessment: No Falls in past year Last assessed Fall Risk: 05/05/25 Dental Screening Dental Screen Date: 05/05/25 Did you have a dental visit in the last 12 months?: Yes Did you have a dental problem in the last 6 months where you did not have access to dental care?: No Was dental information given to patient?: Patient has dentist HPI BP check with provider HPI Details The patient is a 70 year old individual presenting for follow-up for hypertension and evaluation of fatigue. About a month ago, there was a concern for high blood pressure, which was confirmed during a subsequent visit with another provider. Consequently, losartan potassium was added to the patient's atenolol regimen one week prior to this visit. Upon starting the new medication, the patient experienced severe leg cramps for the first two nights, which have since resolved. During a vacation last week, the patient experienced significant fatigue with walking, which necessitated the use of a wheelchair for four days. The fatigue was unusual as the patient typically walks three times a day at home. The patient was concerned this could be related to the new losartan medication or a cardiac issue, but denies any chest pain or palpitations. The patient denies any leg swelling and reports adequate water intake during that time. The patient also reports pain in the back of the neck and lower back when walking. Blood work from before starting losartan was normal, including kidney function, sugar, cholesterol, and vitamin D levels. [facility] Medical History Bilateral impacted cerumen Anxiety and depression History of primary hyperparathyroidism Mixed dyslipidemia History of invasive breast cancer Osteopenia Menopause Essential hypertension Nontoxic multinodular goiter Surgical History S/P lumpectomy, left breast Hx of colonoscopy History of partial thyroidectomy History of parathyroidectomy Family History Father Skin cancer HTN (hypertension) Diabetes mellitus Mother Stroke Brother Depression Brother No problems noted. Sister No problems noted. Sister No problems noted. Son No problems noted. Daughter No problems noted. Social History Housing: House Alcohol intake: never Patient Tobacco Use Status: Never used Tobacco e-Cigarette/Vaping Use: Never Used Second Hand Smoke Exposure: No Current occupational status: retired Cognitive needs: No Hearing needs: No Vision needs: Yes Questionnaire PHQ-9 Over the last 2 weeks, how often have you been bothered by any of the following problems? 1. Little interest or pleasure in doing things: not at all 2. Feeling down, depressed, or hopeless: not at all 3. Trouble falling or staying asleep, or sleeping too much: not at all 4. Feeling tired or having little energy: not at all 5. Poor appetite or overeating: not at all 6. Feeling bad about yourself - or that you are a failure or have let yourself or your family down: not at all 7. Trouble concentrating on things, such as reading the newspaper or watching television: not at all 8. Moving or speaking so slowly that other people could have noticed. Or the opposite - being so fidgety or restless that you have been moving around a lot more than usual: not at all 9. Thoughts that you would be better off or of hurting yourself in some way: not at all Total score: 0 Depression Screening Interpretation: Negative Depression Screening Done: Yes Source: Developed by Drs. Mary Hamilton Kurt Kroenke and colleagues, with an educational tom from [employer]. Thrive Questionnaire Date Thrive assessed: 09/04/24 I am a: Patient What is your living situation today?: I have a steady place to live Within the past 12 months, did the food you bought not last and you didn't have the money to get more?: Never true Within the past 12 months, did you worry whether your food would run out before you got money to buy more?: Never true Do you have trouble paying for medicines?: No Do you have trouble getting transportation to medical appointments?: No Do you have trouble paying your heating and electricity bill?: No Do you have trouble taking care of your child, family member or friend?: No Do you have trouble with day-to-day activities such as bathing, preparing meals, shopping, managing finances, etc.?: No Are you currently unemployed and looking for a job?: No Are you interested in more education?: No THRIVE Score: 0 AUDIT C Alcohol Use Questionnaire (AUDIT-C) 1. How often do you have a drink containing alcohol?: Monthly or less 2. How many drinks containing alcohol do you have on a typical day when you are drinking?: 1 or 2 3. How often do you have six or more drinks on one occasion?: Never Total Score: 1 HEATHER-7 AMB Questionnaire HEATHER-7 Date HEATHER - 7 assessed: 09/10/24 Feeling nervous, anxious, or on edge: 0 = Not at all Not being able to stop or control worryin = Not at all Worrying too much about different things: 0 = Not at all Trouble relaxin = Not at all Being so restless that it is hard to sit still: 0 = Not at all Becoming easily annoyed or irritable: 0 = Not at all Feeling afraid as if something awful might happen: 0 = Not at all Total HEATHER-7 score (0-4 normal; 5-9 mild; 10-14 moderate; 15-21 severe): 0 Source: Developed by Drs. Jarvis Sagastume, Ric Bishop and colleagues, with an educational tom from [employer]. Review of Systems Const All systems reviewed & are unremarkable except as noted in HPI and below Physical exam (Primary Care) Vital Signs: Last Vital Signs Temp 97.9 F 05/05/25 14:52 Pulse 70 05/05/25 14:52 Resp 16 05/05/25 14:52 BP 138/68 05/05/25 14:52 Pulse Ox 99 05/05/25 14:52 Oxygen Delivery Method Room Air 05/05/25 14:52 BMI result Body Mass Index 30.6 Tobacco/Smoking Status: Tobacco use Status Tobacco use date assessed 05/05/25 05/05/25 14:59 Patient Tobacco Use Status Never used Tobacco 05/05/25 14:59 e-Cigarette/Vaping Use Never Used 05/05/25 14:59 PHQ-9: PHQ-9 Score PHQ-9: Total score 0 05/05/25 15:08 Depression Screening Interpretation: Negative Thrive Assessment: Date of Thrive Assessment Date Thrive assessed 09/04/24 05/05/25 14:59 Const Other: Alert oriented x3, no acute distress noted, ambulatory with normal gait HENAK Head: Yes normocephalic General nose exam: Normal external nose present Face and sinus: Yes face symmetric Mouth: Normal oral and palatal mucosa present and moist mucous membranes Eyes General: appearance normal, both eyes and all related structures Neck Neck: Yes full ROM, Yes no lymphadenopathy and Yes supple Resp Auscultation: clear to auscultation bilaterally Cardio Other: S1-S2 present regular rate and rhythm GI Other: Normal bowel sounds, soft, nontender, no mass palpated General: Yes no CVA tenderness and Yes deferred Back/Spine/Pelvis Back: no CVA tenderness and No back tenderness Neuro General: gait normal, tone normal, moves all extremities, Normal light touch and pain sensation, no focal motor deficits and CN's II-XI intact bilaterally Extrem General: Yes full ROM, Yes no joint enlargement, Yes no pedal edema, Yes no calf tenderness and Yes normal gait Psych Appearance: grossly normal and well kempt Mental Status: mental status grossly normal Speech and movement: Normal speech and movement present Affect: normal affect Coding Level of Care Code Complex visit Add On G2211 Diagnoses Essential hypertension I10 Assessment & Plan Assessment & Plan (1) Essential hypertension: Code(s): I10 - Essential (primary) hypertension Category: Medical Plan 1. Hypertension The patient has hypertension and recently started losartan one week ago in addition to atenolol. The fatigue and prior leg cramps could be related to the new medication or blood pressure adjustment. adjust the medication timing, with atenolol to be taken at night and losartan in the morning, to prevent excessive lowering of blood pressure. A non-fasting Basic Metabolic Panel (BMP) is ordered for next week to check kidney function and electrolytes. The patient is advised to monitor blood pressure at home while rested, with the arm at heart level. The patient will keep the follow-up appointment with Lisandra next week. 2. Fatigue The patient's fatigue is new since starting losartan and was prominent during a period of increased exertion on vacation. This may be part of the body's adjustment to the medication and new blood pressure levels. Cardiac causes are less likely as the patient denies chest pain or palpitations. The plan is to monitor symptoms, ensure adequate hydration, and proceed with the ordered BMP to rule out electrolyte imbalance. The patient was advised to report any development of chest pain, pressure, or palpitations. 3. Myalgia The patient reports neck and lower back pain associated with walking. This is likely related to posture during increased activity. The patient was advised to perform back exercises. Patient was informed and verbally consented to the use of an ambient scribe for clinic note documentation during this visit. Orders: Orders Basic Metabolic Panel 05/05/25 I10 - Essential (primary) hypertension
[2025-05-05 14:52] VITALS: BP 138/68; PULSE 70; RESP 16; TEMP 36.6; O2SAT 99; BMI 30.6
--- OUTSIDE RECORDS SUMMARY | 2025-05-05 19:21 | XMS_ITS | Encounter Summary ---
Author Organization [facility] Address [address] [place] [address] Phone Care Team Providers Care Airport Manager Name Role Phone Pcp, Unknown Primary Care Provider Mary Diane MD Primary Care Provider Encounter Details Date Type Department Care Team (Late st Contact Info) Description 04/03/2024 Ancillary Orders [address] [address] System, Provider Not In, PhD Partners [address] [address] Social History Tobacco Use Types Packs/Day Years [...] (No Interpretation) (11/16/2017 12:00 AM EDT) Narrative RecordAlka 04/03/2024 11:08 AM EDT This study is for PACS storage only and not for interpretation. Procedure Note Record, - 04/03/2024 This study is for PACS storage only and not for interpretation. us Provider Not In System PhD IMG OUTSIDE IMAGING W /OUT INTERPRETATION Final Result documented in this encounter Visit Diagnoses Not on filedocumented in this encounter Care Teams Airport Manager Relationship Specialty Start Date End Date Pcp, Unknown PCP - General 03/28/23 04/14/24 Mary Wood MD [facility] [place] [address] PCP - General Internal Medicine 04/15/24 documented as of this encounter Additional Source Comments The information contained in this document represents components of the legal health record. It is not the complete legal health record.[facility]
--- OUTSIDE RECORDS SUMMARY | 2025-05-05 19:21 | XMS_ITS | Clinical Summary ---
Author Organization [facility] Address [address] [place] [phone] Phone Care Team Providers Care Elocution Teacher Name Role Phone Mary Wood MD Primary [...] Calcium Citrate, 12.5 mcg D3 Active omega 5-rcb-zhr-fish oil (FISH OIL) 1,200 (144-216) mg Cap [...] Relevant to Health Maintenance Insurance [facility] [place] [facility] MEDICARE PPO BLUE REPLACEMENT [facility] [place] [facility] MEDICARE PPO BLUE REPLACEMENT [facility] MEDICARE PPO BLUE REPLACEMENT [facility] MEDICARE PPO BLUE REPLACEMENT [place]RISTY [place] [facility] MEDICARE PPO BLUE REPLACEMENT [place] [facility] MEDICARE PPO BLUE REPLACEMENT Care Teams Elocution Teacher Relationship Specialty Start Date End Date Mary Wood MD [address] [place] [address] PCP - General Internal Medicine 04/15/24 Additional Source Comments The information contained in this document represents components of the legal health record. It is not the complete legal health record.[facility]
--- OUTSIDE RECORDS SUMMARY | 2025-05-05 19:21 | XMS_ITS | Encounter Summary ---
Author Organization [facility] Address [address] [place] [phone] Phone Care Team Providers Care Pediatric Allergist Name Role Phone Pcp, Unknown Primary Care Provider Mary Diane MD Primary Care Provider Encounter Details Date Type Department Care Team (Late st Contact Info) Description 04/03/2024 Ancillary Orders [address] [address] System, Provider Not In, PhD Partners [address] [address] Social History Tobacco Use Types Packs/Day Years [...] on filedocumented in this encounter Care Teams Pediatric Allergist Relationship Specialty Start Date End Date Pcp, Unknown PCP - General 03/28/23 04/14/24 Mary Wood MD [facility] [place] [address] PCP - General Internal Medicine 04/15/24 documented as of this encounter Additional Source Comments The information contained in this document represents components of the legal health record. It is not the complete legal health record.[facility]
--- OUTSIDE RECORDS SUMMARY | 2025-05-05 19:21 | XMS_ITS | Encounter Summary ---
Author Organization [facility] Address [address] [place] [address] Phone Care Team Providers Care Flat Bed Operator Name Role Phone Pcp, Unknown Primary Care Provider Mary Diane MD Primary Care Provider Encounter Details Date Type Department Care Team (Late st Contact Info) Description 04/03/2024 Ancillary Orders [address] [address] System, Provider Not In, PhD Partners [address] [address] Social History Tobacco Use Types Packs/Day Years [...] on filedocumented in this encounter Care Teams Flat Bed Operator Relationship Specialty Start Date End Date Pcp, Unknown PCP - General 03/28/23 04/14/24 Mary Wood MD [facility] [place] [address] PCP - General Internal Medicine 04/15/24 documented as of this encounter Additional Source Comments The information contained in this document represents components of the legal health record. It is not the complete legal health record.[facility]
== END 2025-05-05 15:31 | disposition home or self-care (01) ==
LOC: HO.HMCC 14:26
PROVIDERS: PCP Internal Medicine; Visit Provider Internal Medicine
DX: I10 Essential (primary) hypertension (principal)

== ENCOUNTER → 2025-05-05 14:26 | Outpatient (BNVA) | payer MEDICARE, SELFPAY | PROVIDERS: PCP Internal Medicine; Visit Provider Internal Medicine | DX: I10 Essential (primary) hypertension (principal); R53.83 Other fatigue; M54.2 Cervicalgia; M54.50 Low back pain, unspecified | CPT/HCPCS: 96127; 99212 ==

== ENCOUNTER 2025-05-15 10:27 | Outpatient (REF) | payer MEDICARE, SELFPAY ==
[2025-05-15 16:15] LABS: Anion Gap 11 (12-20); Blood Urea Nitrogen 20 mg/dL (9-16); Calcium 9.0 mg/dL (8.4-10.2); Carbon Dioxide 25 mmol/L (22-29); Chloride 105 mmol/L (96-108); Estimated Glomerular Filt Rate > 60; Potassium 4.2 mmol/L (3.3-5.1); Sodium 137 mmol/L (135-145)
== END 2025-05-15 10:28 | disposition home or self-care (01) ==
LOC: HO.HMGCLDS 10:27
PROVIDERS: Absent Provider Internal Medicine; PCP Internal Medicine
DX: I10 Essential (primary) hypertension (principal)
CPT/HCPCS: 36415; 80048; 99211

== ENCOUNTER 2025-05-17 11:12 | Outpatient (REF) | payer MEDICARE, SELFPAY ==
--- NOTE | ~2025-05-17 | XR_ITS ---
EXAMINATION: XR CERVICAL SPINE 4-5 VIEWS HISTORY: M54.2 - Cervicalgia COMPARISON: There are no prior studies available for comparison. FINDINGS: AP, lateral, and bilateral oblique views of the cervical spine are submitted. Osseous mineralization is normal. Seven cervical vertebral bodies are identified maintaining normal height and alignment without evidence of fracture or subluxation. There is mild degenerative disc disease with disc space narrowing and osteophyte formation, most prominent at the C6-7 level. There is mild narrowing of the right C3-4, C4-5, and C6-7 neural foramen. There is mild narrowing of the left C3-4 neural foramen and moderate narrowing of the C5-6 and C6-7 neural foramen secondary to facet osteoarthritis and uncovertebral joint hypertrophy. There is no prevertebral soft tissue swelling. XR/XR cervical spine 4V IMPRESSION: Degenerative changes of the cervical spine as described. Electronically signed by: Jarvis Richter MD 05/19/2025 08:30 AM [facility]
--- OUTSIDE RECORDS SUMMARY | 2025-05-17 11:15 | XMS_ITS | Encounter Summary ---
Author Organization [facility] Address [address] [place] [address] Phone Care Team Providers Care Bow Maker Machine Tender Name Role Phone Pcp, Unknown Primary Care Provider Mary Diane MD Primary Care Provider Encounter Details Date Type Department Care Team (Late st Contact Info) Description 04/03/2024 Ancillary Orders [address] [address] System, Provider Not In, PhD Partners [address] [address] Social History Tobacco Use Types Packs/Day Years [...] on filedocumented in this encounter Care Teams Bow Maker Machine Tender Relationship Specialty Start Date End Date Pcp, Unknown PCP - General 03/28/23 04/14/24 Mary Wood MD [facility] [place] [address] PCP - General Internal Medicine 04/15/24 documented as of this encounter Additional Source Comments The information contained in this document represents components of the legal health record. It is not the complete legal health record.[facility]
--- OUTSIDE RECORDS SUMMARY | 2025-05-17 11:15 | XMS_ITS | Encounter Summary ---
Author Organization [facility] Address [address] [place] [address] Phone Care Team Providers Care Manufacturing Production Manager Name Role Phone Pcp, Unknown Primary Care Provider Mary Diane MD Primary Care Provider Encounter Details Date Type Department Care Team (Late st Contact Info) Description 04/03/2024 Ancillary Orders [address] [address] System, Provider Not In, PhD Partners [address] [address] Social History Tobacco Use Types Packs/Day Years [...] on filedocumented in this encounter Care Teams Manufacturing Production Manager Relationship Specialty Start Date End Date Pcp, Unknown PCP - General 03/28/23 04/14/24 Mary Wood MD [facility] [place] [address] PCP - General Internal Medicine 04/15/24 documented as of this encounter Additional Source Comments The information contained in this document represents components of the legal health record. It is not the complete legal health record.[facility]
--- OUTSIDE RECORDS SUMMARY | 2025-05-17 11:15 | XMS_ITS | Encounter Summary ---
Author Organization [facility] Address [address] [place] [phone] Phone Care Team Providers Care Hospice Team Lead Name Role Phone Pcp, Unknown Primary Care Provider Mary Diane MD Primary Care Provider Encounter Details Date Type Department Care Team (Late st Contact Info) Description 04/03/2024 Ancillary Orders [address] [address] System, Provider Not In, PhD Partners [address] [address] Social History Tobacco Use Types Packs/Day Years [...] on filedocumented in this encounter Care Teams Hospice Team Lead Relationship Specialty Start Date End Date Pcp, Unknown PCP - General 03/28/23 04/14/24 Mary Wood MD [facility] [place] [place] [address] PCP - General Internal Medicine 04/15/24 documented as of this encounter Additional Source Comments The information contained in this document represents components of the legal health record. It is not the complete legal health record.[facility]
--- OUTSIDE RECORDS SUMMARY | 2025-05-17 11:16 | XMS_ITS | Clinical Summary ---
Author Organization [facility] Address [address] [place] [phone] Phone Care Team Providers Care Supervisor Dental Laboratory Name Role Phone Mary Wood MD Primary [...] Calcium Citrate, 12.5 mcg D3 Active omega 2-hae-ghy-fish oil (FISH OIL) 1,200 (144-216) mg Cap [...] Relevant to Health Maintenance Insurance [facility] [place] [facility] MEDICARE PPO BLUE REPLACEMENT [facility] [place] [facility] MEDICARE PPO BLUE REPLACEMENT [facility] MEDIC[facility]PO BLUE REPLACEMENT [facility] MEDICARE PPO BLUE REPLACEMENT [place] [facility] MEDICARE PPO BLUE REPLACEMENT [place] [facility] MEDICARE PPO BLUE REPLACEMENT Care Teams Supervisor Dental Laboratory Relationship Specialty Start Date End Date Mary Wood MD [address] [place] [address] PCP - General Internal Medicine 04/15/24 Additional Source Comments The information contained in this document represents components of the legal health record. It is not the complete legal health record.[facility]
== END 2025-05-17 11:13 | disposition home or self-care (01) ==
LOC: HO.HMGCX 11:12
PROVIDERS: PCP Internal Medicine; Visit Provider Internal Medicine
DX: M54.2 Cervicalgia (principal)
CPT/HCPCS: 72050

== ENCOUNTER → 2025-05-17 11:25 | Outpatient (BNV) | payer MEDICARE, SELFPAY | PROVIDERS: PCP Internal Medicine; Visit Provider Radiology Diagnostic Radiology | DX: M50.30 Other cervical disc degeneration, unspecified cervical region (principal) | CPT/HCPCS: 72050 ==

== ENCOUNTER 2025-05-22 09:51 | Outpatient (REF) | payer MEDICARE, SELFPAY ==
[2025-05-22 14:22] LABS: MANUAL DIFF FLAG NO
[2025-05-22 14:23] LABS: Hematocrit 24.6 % (37.0-47.0); Hemoglobin 7.1 g/dl (12.0-16.0); Imm Gran Abs Auto 0.01 X10*3/uL (0.00-0.03); Imm Gran Pct Auto 0.2 % (0.0-0.4); Lymphocytes Absolute Auto 1.4 X10*3/uL (1.2-4.9); Mean Corpuscular HGB Conc 28.9 g/dl (31.0-35.0); Mean Corpuscular Hemoglobin 21.1 pg (27.0-33.0); Mean Corpuscular Volume 73.0 fL (80.0-98.0); NRBC Abs Auto 0.000 X10*3/uL (0.0-0.012); NRBC Pct Auto 0.0 /100WBC (0.0-0.2); Platelet Count 275 X10*3/uL (160-400); Red Blood Count 3.37 X10*6/uL (4.20-5.50); White Blood Count 5.2 X10*3/uL (4.8-10.8)
[2025-05-22 14:56] LABS: Iron 17 mcg/dL (30-160); Percent Iron Saturation 4 % (15-50); Total Iron Binding Capacity 395 mcg/dL (228-428); Unsaturated Iron Binding 378 ug/dL
[2025-05-22 15:11] LABS: Folate 18.5 ng/mL (> or = 4.0); Vitamin B12 569 pg/mL (200-900)
== END 2025-05-22 09:52 | disposition home or self-care (01) ==
LOC: HO.HMGCLDS 09:51
PROVIDERS: PCP Internal Medicine; Visit Provider Internal Medicine
DX: R53.1 Weakness (principal); R53.83 Other fatigue; R63.0 Anorexia; Z68.30 Body mass index [BMI] 30.0-30.9, adult; Z13.31 Encounter for screening for depression
CPT/HCPCS: 36415; 82607; 82746; 83540; 84443; 85025; 99212

== ENCOUNTER 2025-05-22 09:51 | Outpatient (AMB) | payer MEDICARE, SELFPAY ==
[2025-05-22 10:15] VITALS: BP 132/64; PULSE 90; RESP 16; TEMP 36.9; O2SAT 96
--- NOTE | 2025-05-22 10:15 | MHC.PC.OV ---
Vital Signs 05/22/25 10:15 Height 5 ft 1 in Weight 159 lb BMI 30.0 BP 132/64 Blood Pressure Location Rt brachial Position Sitting Respiration 16 Pulse 90 Pulse Source Pulse Oximeter Temp 98.5 F Temp Source Oral Pulse Oximetry (%) 96 Oxygen Delivery Method Room Air Intake Visit Reasons: Increasing fatigue Intake Note: Pt is here today c/o increasing fatigue [employer] Required: No Allergies amoxicillin Allergy (Unknown, Verified 05/24/25 21:11) hives lisinopril Adverse Reaction (Unknown, Verified 05/24/25 21:11) cough Medication List - Last Reconciled 05/24/25 by Mary Wood MD atenolol 50 mg PO BEDTIME atorvastatin 10 mg PO DAILY calcium carbonate-vitamin D3 600 mg-5 mcg (200 unit) 1 tab PO DAILY cholecalciferol (vitamin D3) 50 mcg PO DAILY fluoxetine 20 mg PO DAILY losartan 50 mg PO DAILY multivit with min-folic acid 200 mcg (Adult Multivitamin Gummies) 1 tab PO DAILY Tobacco use date assessed: 05/22/25 Fall risk assessment: No Falls in past year Last assessed Fall Risk: 05/22/25 Dental Screening Dental Screen Date: 05/22/25 Did you have a dental visit in the last 12 months?: Yes Did you have a dental problem in the last 6 months where you did not have access to dental care?: No Was dental information given to patient?: Patient has dentist HPI HPI Comments History of Present Illness Details The patient is a 70 year old female presenting with fatigue and lack of energy. She reports her symptoms started a while ago, and her tiredness has worsened since a recent trip to [place] where she required a wheelchair to get around due to easy fatigability. The patient describes the feeling as having no energy, with heaviness in the arms, and weakness in both arms and legs. She also experiences lightheadedness and a sensation of needing to take a deep breaths. Her symptoms are exacerbated by exertion, such as going up and down stairs, and are relieved by sitting and resting. She notes that her appetite has decreased, which she relates to not feeling well and feeling worried. She denies any recent COVID-19 infection. The patient has a history of diverticulosis and hemorrhoids, identified on a colonoscopy performed two to three years ago. She denies any blood in the stool or bleeding from hemorrhoids, but noticed that her stools are darker color.. 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 She is in a cancer survivorship program and sees a nurse practitioner at [facility] annually, with her last visit August of this year. Her last blood count was a year ago and was normal. A thyroid check in August of this year was normal, and she has no known thyroid issues. Lab work from March showed normal cholesterol and vitamin D levels. She takes vitamin D supplements. [facility] Medical History Easy fatigability Weakness Bilateral impacted cerumen Anxiety and depression History of primary hyperparathyroidism Mixed dyslipidemia History of invasive breast cancer Osteopenia Menopause Essential hypertension Nontoxic multinodular goiter Surgical History S/P lumpectomy, left breast Hx of colonoscopy History of partial thyroidectomy History of parathyroidectomy Family History Father Skin cancer HTN (hypertension) Diabetes mellitus Mother Stroke Brother Depression Brother No problems noted. Sister No problems noted. Sister No problems noted. Son No problems noted. Daughter No problems noted. Social History Housing: House Alcohol intake: never Patient Tobacco Use Status: Never used Tobacco Smoked in Last 30 Days: No e-Cigarette/Vaping Use: Never Used Second Hand Smoke Exposure: No Use of substances other than those prescribed or required for medical reasons: No Advance Directives: No Advance Directives Information Provided: No Do you have a plan to hurt others: No Plan Nutrition Risks: No Nutritional Risk Current occupational status: retired Cognitive needs: No Hearing needs: No Vision needs: Yes Questionnaire PHQ-9 Over the last 2 weeks, how often have you been bothered by any of the following problems? 1. Little interest or pleasure in doing things: not at all 2. Feeling down, depressed, or hopeless: not at all 3. Trouble falling or staying asleep, or sleeping too much: not at all 4. Feeling tired or having little energy: not at all 5. Poor appetite or overeating: not at all 6. Feeling bad about yourself - or that you are a failure or have let yourself or your family down: not at all 7. Trouble concentrating on things, such as reading the newspaper or watching television: not at all 8. Moving or speaking so slowly that other people could have noticed. Or the opposite - being so fidgety or restless that you have been moving around a lot more than usual: not at all 9. Thoughts that you would be better off or of hurting yourself in some way: not at all Total score: 0 Depression Screening Interpretation: Negative Depression Screening Done: Yes Source: Developed by Drs. Jarvis Sagastume, Mary Lara, Ric Alberts and colleagues, with an educational tom from [employer]. Thrive Questionnaire Date Thrive assessed: 09/04/24 I am a: Patient What is your living situation today?: I have a steady place to live Within the past 12 months, did the food you bought not last and you didn't have the money to get more?: Never true Within the past 12 months, did you worry whether your food would run out before you got money to buy more?: Never true Do you have trouble paying for medicines?: No Do you have trouble getting transportation to medical appointments?: No Do you have trouble paying your heating and electricity bill?: No Do you have trouble taking care of your child, family member or friend?: No Do you have trouble with day-to-day activities such as bathing, preparing meals, shopping, managing finances, etc.?: No Are you currently unemployed and looking for a job?: No Are you interested in more education?: No Please select the resources that you would like help with: None Currently or been in a relationship where the following occur: No concerns reported THRIVE Score: 0 AUDIT C Alcohol Use Questionnaire (AUDIT-C) 1. How often do you have a drink containing alcohol?: Monthly or less 2. How many drinks containing alcohol do you have on a typical day when you are drinking?: 1 or 2 3. How often do you have six or more drinks on one occasion?: Never Total Score: 1 HEATHER-7 AMB Questionnaire HEATHER-7 Date HEATHER - 7 assessed: 09/10/24 Feeling nervous, anxious, or on edge: 0 = Not at all Not being able to stop or control worryin = Not at all Worrying too much about different things: 0 = Not at all Trouble relaxin = Not at all Being so restless that it is hard to sit still: 0 = Not at all Becoming easily annoyed or irritable: 0 = Not at all Feeling afraid as if something awful might happen: 0 = Not at all Total HEATHER-7 score (0-4 normal; 5-9 mild; 10-14 moderate; 15-21 severe): 0 Source: Developed by Drs. Jarvis Sagastume, Mary Lara, Ric Alberts and colleagues, with an educational tom from [employer]. Review of Systems Narrative Review of Systems - General: Reports fatigue, lack of energy, weakness, and feeling cold. Denies fever. - Neurological: Reports lightheadedness. Denies headaches. - Cardiovascular: Reports palpitations and feeling of needing to take a deep breath. Denies chest pain. - Musculoskeletal: Reports a generalized ache, heaviness in arms, and weakness in arms and legs. Reports neck pain at times. - Gastrointestinal: Reports decreased appetite and history of heartburn. Denies nausea, vomiting, blood in stool, ulcers, or bleeding hemorrhoids. - Constitutional: Reports emotional distress and worry. - Skin: Denies cuts or wounds. Constitution Reports no additional complaints Eyes no change in vision ENT Reports no additional complaints, Denies dysphagia and Denies odynophagia Cardiology Reports no additional complaints Respiratory Reports no additional complaints GI Denies abdominal pain, Denies belching, Denies melena, Denies bloating, Denies change in bowel habits, Denies dysphagia, Denies excessive flatus, Denies dyspepsia, Denies heartburn, Denies diarrhea, Denies loose stools, Denies nausea, Denies odynophagia and Denies vomiting Reports no additional complaints Muscular no additional complaints Skin/Breast Denies breast swelling, Denies breast pain, Denies breast mass and Denies rash Neurology Reports no additional complaints, Denies Abnormal speech present and Denies Sensory deficit (Neuro) Psychiatry Reports no additional complaints Endocrine Reports no additional complaints Paddy/Lymph Reports no additional complaints Aller/Immun Reports no additional complaints Physical exam (Primary Care) Vital Signs: Last Vital Signs Temp 98.5 F 12/11/25 10:15 Pulse 90 05/22/25 10:15 Resp 16 05/22/25 10:15 BP 132/64 05/22/25 10:15 Pulse Ox 96 05/22/25 10:15 Oxygen Delivery Method Room Air 05/22/25 10:15 BMI result Body Mass Index 30.0 Tobacco/Smoking Status: Tobacco use Status Tobacco use date assessed 05/22/25 05/22/25 10:20 Patient Tobacco Use Status Never used Tobacco 05/22/25 10:20 e-Cigarette/Vaping Use Never Used 05/22/25 10:20 PHQ-9: PHQ-9 Score PHQ-9: Total score 0 05/22/25 10:46 Depression Screening Interpretation: Negative Thrive Assessment: Date of Thrive Assessment Date Thrive assessed 09/04/24 05/22/25 10:20 Currently or been in a relationship where the following occur: No concerns reported Narrative Const Other: Alert oriented x3, no acute distress noted, ambulatory with normal gait HENOH Head: Yes normocephalic General nose exam: Normal external nose present Face and sinus: Yes face symmetric Mouth: Normal oral and palatal mucosa present and moist mucous membranes Eyes Other: Pale Palpebral conjunctiva, anicteric Neck Neck: Yes full ROM, Yes no lymphadenopathy and Yes supple Thyroid: other (Nonpalpable) Resp Auscultation: clear to auscultation bilaterally Cardio Other: S1-S2 present regular rate and rhythm GI Other: Normal bowel sounds, soft, nontender, no mass palpated General: Yes no CVA tenderness and Yes deferred Back/Spine/Pelvis Back: no CVA tenderness and No back tenderness Neuro General: gait normal, tone normal, moves all extremities, Normal light touch and pain sensation and no focal motor deficits Extrem General: Yes full ROM, Yes no joint enlargement, Yes no pedal edema, Yes no calf tenderness and Yes normal gait Psych Appearance: grossly normal and well kempt Mental Status: mental status grossly normal Speech and movement: Normal speech and movement present Affect: normal affect Coding Level of Care Code Est Pt Level 4 (48541) Diagnoses Weakness R53.1 Easy fatigability R53.83 Assessment & Plan Assessment & Plan (1) Weakness: Code(s): R53.1 - Weakness Category: Medical (2) Easy fatigability: Code(s): R53.83 - Other fatigue Category: Medical Plan Assessment and Plan 1. Fatigue and Weakness The patient presents with worsening fatigue, weakness, lightheadedness, and dyspnea on exertion. The patient appears pale on examination. The primary concern is for anemia, given the symptom constellation. Although her last complete blood count (CBC) a year ago was normal, her current presentation warrants a repeat evaluation. Other potential causes include thyroid dysfunction, though a test in August was normal, and vitamin deficiencies. Her known spinal arthritis and degenerative disc disease are unlikely to be the cause of her systemic fatigue. The plan is to obtain a CBC, an iron panel, a thyroid panel, and a vitamin B12 level. An EKG will also be performed to evaluate for any cardiac etiology for her symptoms, including palpitations. 2. Decreased Appetite The patient notes a decreased appetite, which she attributes to her general malaise and worry. This could be related to an underlying systemic illness, such as anemia. No active gastrointestinal bleeding is suspected based on history, as she denies hematochezia and has no evidence of bleeding hemorrhoids or ulcers. Her last colonoscopy was 2-3 years ago and showed diverticulosis and hemorrhoids. The planned blood work will help investigate for anemia or other metabolic causes. Will also check her iron levels to investigate for reasons for blood loss or poor production. 3. History of Cancer The patient is followed in a cancer survivorship clinic and was last seen in August of this year. She is scheduled for annual follow-ups. She will continue her routine surveillance as planned. Patient was informed and verbally consented to the use of an ambient scribe for clinic note documentation during this visit. Orders: Orders Vitamin B12 and Folate 05/22/25 R53.1 - Weakness, R53.83 - Other fatigue Complete Blood Count Auto Diff 05/22/25 R53.1 - Weakness, R53.83 - Other fatigue IRON PROFILE 05/22/25 R53.1 - Weakness, R53.83 - Other fatigue TSH reflex Free T4 05/22/25 R53.1 - Weakness, R53.83 - Other fatigue
== END 2025-05-22 11:12 | disposition home or self-care (01) ==
LOC: HO.HMCC 09:52
PROVIDERS: PCP Internal Medicine; Visit Provider Internal Medicine
DX: R53.1 Weakness (principal); R53.83 Other fatigue

== ENCOUNTER 2025-05-24 13:29 | Inpatient (IN) | payer MEDICARE, SELFPAY ==
[2025-05-24] VITALS (7 sets, daily range): BP systolic 125–171; BP diastolic 57–77; PULSE 62–89; RESP 12–18; TEMP 36.8–36.9; O2SAT 96–98; BMI 29.9
--- NOTE | 2025-05-24 14:04 | ED.RECABL ---
HPI - Recheck/Abnormal Lab/Rx General Chief Complaint: Recheck/Abnormal Lab/Rx Stated Complaint: abnormal labs, sent by PCP Time Seen by Provider: 05/24/25 15:13 Source: patient Mode of arrival: ambulatory Limitations: no limitations History of Present Illness ED Provider: Selena Cuevas APRN HPI narrative: 70 yo female with PMH of hypertension, breast cancer in remission, hyperlipidemia, OCD presents to the ER with complaints of 1 month of fatigue, generalized weakness and shortness of breath with exertion. Patient was seen by her outpatient provider and had labs on the which showed a low hemoglobin and a low iron. She was referred into the emergency room for further evaluation. Patient reports she has had 2-3 dark bowel movements this week. No reports of abdominal pain, hematuria, vaginal bleeding or hematemesis. No history of IVDA. Patient reports she had a colonoscopy [address] Matias which I had diverticulosis and hemorrhoids. Denies aspirin use. Denies NSAID use. Related Data Home Medications ?Medication ?Instructions ?Recorded ?Confirmed calcium citrate 200 mg PO DAILY 08/26/20 05/12/25 cholecalciferol (vitamin D3) 50 50 mcg PO DAILY 08/26/20 05/12/25 mcg (2,000 unit) capsule multivitamin with minerals-folic tab PO 09/06/21 05/12/25 acid 200 mcg chewable tablet (Adult Multivitamin Gummies) Previous Rx's ?Medication ?Instructions ?Recorded atenolol 50 mg tablet 50 mg PO DAILY #90 tabs 03/05/25 atorvastatin 10 mg tablet 10 mg PO DAILY #90 tabs 05/15/25 fluoxetine 20 mg capsule 20 mg PO DAILY #90 caps 05/20/25 losartan 50 mg tablet 50 mg PO DAILY #30 tabs 05/20/25 Allergies Allergy/AdvReac Type Severity Reaction Status Date / Time amoxicillin Allergy Unknown hives Verified 05/24/25 14:09 lisinopril AdvReac Unknown cough Verified 05/24/25 14:09 Review of Systems Review of Systems: Yes all other systems are reviewed and are negative Constitutional: Constitutional: Reports no additional constitutional complaints, Denies body ache(s), Denies chills, Reports fatigue, Denies fever(s), Denies headache(s) and Reports weakness Eyes: Eyes: Reports no additional eye complaints and Denies change in vision ENT: Reports system reviewed and no additional complaints, except as documented, Denies dizziness, Denies headache(s), Denies nasal congestion, Denies nasal discharge and Denies neck pain Cardiovascular: Cardiovascular: Reports no additional cardiovascular complaints, Denies chest pain, Denies leg edema and Denies dyspnea Respiratory: Respiratory: Reports no additional respiratory complaints, Denies cough and Denies dyspnea Gastrointestinal: Gastrointestinal: Reports no additional gastrointestinal complaints, Denies abdominal pain, Reports melena, Denies diarrhea, Denies nausea and Denies vomiting Genitourinary: Genitourinary: Reports no additional female genitourinary complaints and Denies urinary incontinence Musculoskeletal: Musculoskeletal: Reports no additional musculoskeletal complaints, Denies back pain, Denies arthralgias, Denies joint swelling, Denies neck pain, Denies numbness and Denies tingling Integumentary/Breasts: Skin/Breast: Reports system reviewed and no additional complaints, except as docu and Denies rash Neurologic: Reports system reviewed and no additional complaints, except as documented, Denies Abnormal speech present, Denies dizziness, Denies headache(s), Denies numbness, Denies tingling and Reports weakness Endocrine: Endocrine: Reports fatigue PMFSH Past Medical History Attestation statement: The following information was validated with the patient. Source: old records reviewed and nursing notes reviewed Medical History Easy fatigability Weakness Bilateral impacted cerumen Anxiety and depression History of primary hyperparathyroidism Mixed dyslipidemia History of invasive breast cancer Osteopenia Menopause Essential hypertension Nontoxic multinodular goiter Surgical History S/P lumpectomy, left breast Hx of colonoscopy History of partial thyroidectomy History of parathyroidectomy Family History Family History Father Skin cancer HTN (hypertension) Diabetes mellitus Mother Stroke Brother Depression Brother No problems noted. Sister No problems noted. Sister No problems noted. Son No problems noted. Daughter No problems noted. Social History Social History Housing: House Alcohol intake: never Patient Tobacco Use Status: Never used Tobacco Smoked in Last 30 Days: No e-Cigarette/Vaping Use: Never Used Second Hand Smoke Exposure: No Use of substances other than those prescribed or required for medical reasons: No Advance Directives: No Advance Directives Information Provided: No Do you have a plan to hurt others: No Plan Nutrition Risks: No Nutritional Risk Current occupational status: retired Cognitive needs: No Hearing needs: No Vision needs: Yes Physical Exam Vital Signs: Vital Signs: Last Vital Signs Temp 98.3 F 05/24/25 16:17 Pulse 72 05/24/25 16:17 Resp 18 05/24/25 16:17 BP 147/57 H 05/24/25 16:17 Pulse Ox 98 05/24/25 14:03 O2 Del Method Room Air 05/24/25 14:03 BMI result Body Mass Index 29.9 Const: General: cooperative, healthy appearing, comfortable and no acute distress Orientation/consciousness: patient oriented x3 Limitations: no limitations HEENT: Head: Yes normal to inspection Ears: hearing grossly normal bilaterally General nose exam: Normal external nose present Face and sinus: Yes normal facial exam Mouth: Normal oral and palatal mucosa present Throat: Yes posterior oropharynx normal Eyes: General: appearance normal, both eyes and all related structures Conjunctivae: conjunctival abnormal Pupils: Equal, round and reactive pupils present Neck: Neck: Yes normal visual inspection Chest: Chest palpation & inspection: normal inspection of the chest Resp: Effort & Inspection: normal respiratory effort Auscultation: clear to auscultation bilaterally Cardio: Rate: regular rate Rhythm: regular rhythm Peripheral pulses: Peripheral pulses 2+ throughout GI: Other: brown stool on exam Inspection: Yes normal to inspection Palpation (GI): Soft to palpation and nontender Auscultation: normal bowel sounds Rectal Exam - Female: visual inspection normal and normal sphincter tone Back/Spine/Pelvis: Thoracic/Lumbar Spine: thoracic and lumbar spine normal to inspection Skin: General skin exam: no rashes or lesions noted Neuro: General: patient oriented x3, no focal motor deficits and normal sensation to monofilament Cranial nerves: Yes Equal, round and reactive pupils present Cognition (Neuro): normal cognition Speech: No Abnormal speech present Gait exam (Neuro): Normal gait present Motor exam (neuro): 5/5 motor strength present throughout Extrem: General: Yes normal to inspection Course Course Course Narrative: This is a RME preformed in triage by Meg Griffin PA-C. Date: 05/24/2025, time 206 pm. Patient presents with abnormal H/H and low iron 17 , total sat 4 , Hgb: 7.1, Hct: 24.6- PCP sent here for transfusion, labs drawn yesterday, black stool earlier this week ? Anusha presents today after receiving a call from her PCP earlier this morning reporting markedly low blood counts obtained on 05/21/25. ? Reported outside lab values: Hgb 7.1 g/dL, Hct 21.6 %. ? Primary symptom is significant generalized fatigue. ? No prior history of chronic anemia. Only prior transfusion occurred during breast cancer chemotherapy in 2019. ? Denies current anticoagulant use. ? Reports history of hypertension; takes two antihypertensive medications (AM and PM dosing); AM dose taken today. ? GI: A few bowel movements over the past week were ?blackish almost.? Denies use of bismuth products. No noted hematuria. ? Denies pain, shortness of breath, or chest pain. Review of Systems: ? Constitutional: +fatigue. ? Cardiovascular: Denies chest pain. ? Respiratory: Denies shortness of breath. ? Gastrointestinal: Reports several black stools this week; denies abdominal pain, denies Pepto-Bismol use. ? Genitourinary: Denies hematuria. ? Musculoskeletal: Denies generalized pain. Work UP: abd labs, type and screen Will defer full ROS and PE to treating provider. Patient will continued to be monitored in the interim. Medical Decision Making Medical Decision Making MDM Narrative: 70 yo female with PMH of hypertension, breast cancer in remission, hyperlipidemia, OCD presents to the ER with complaints of 1 month of fatigue, generalized weakness and shortness of breath with exertion. Patient was seen by her outpatient provider and had labs on the which showed a low hemoglobin and a low iron. She was referred into the emergency room for further evaluation. Patient reports she has had 2-3 dark bowel movements this week. No reports of abdominal pain, hematuria, vaginal bleeding or hematemesis. No history of IVDA. Patient reports she had a colonoscopy [address] Matias which I had diverticulosis and hemorrhoids. Denies aspirin use. Denies NSAID use. VSS Pale conjunctiva Abdomen soft/nontender. Brown stool on rectal exam. I reviewed her labs from triage which show a microcytic anemia likely in the setting of iron deficiency anemia will send occult stool, type and screen patient consented for 1 unit of PRBC will admit Differential Diagnosis Differential Diagnoses: The differential diagnosis associated with the presentation includes MONICA, GIB Admission/Observation Consideration of admission/observation: Escalation of care including admission/observation considered Anemia with heme + stool requiring admit, transfusion Consult Healthcare Provider Management of the patient was discussed with: Hospitalist Kathya MORRELL ([id number]) who accepted admit Lab Data MDM Lab Attestation statement: I reviewed the patient's lab results. 05/24/25 14:20 05/24/25 14:20 Labs: Lab Results 05/24/25 05/24/25 Range/Units 14:20 15:53 WBC 5.6 (4.8-10.8) X10*3/uL RBC 3.11 L (4.20-5.50) X10*6/uL Hgb 6.8 L* (12.0-16.0) g/dl Hct 22.3 L (37.0-47.0) % MCV 71.7 L (80.0-98.0) fL MCH 21.9 L (27.0-33.0) pg MCHC 30.5 L (31.0-35.0) g/dl RDW 16.0 (11.0-16.0) % Plt Count 241 (160-400) X10*3/uL MPV 9.5 (9.4-12.3) fL Immature Gran % (Auto) 0.5 H (0.0-0.4) % Neut % (Auto) 62.4 (45-73) % Lymph % (Auto) 22.0 (20-40) % [place]da % (Auto) 10.1 (2-11) % Eos % (Auto) 4.3 H (0-4) % Baso % (Auto) 0.7 (0-2) % Lymph # (Auto) 1.2 (1.2-4.9) X10*3/uL [place]da # (Auto) 0.6 (0.1-1.2) X10*3/uL Eos # (Auto) 0.2 (0.0-0.4) X10*3/uL Baso # (Auto) 0.0 (0.0-0.2) X10*3/uL Abs Immat Gran (auto) 0.03 (0.00-0.03) X10*3/uL Absolute Neuts (auto) 3.5 (2.0-8.3) x10*3/uL Absolute Nucleated RBC 0.000 (0.0-0.012) X10*3/uL Nucleated RBC % (auto) 0.0 (0.0-0.2) /100WBC Sodium 138 (135-145) mmol/L Potassium 4.4 (3.3-5.1) mmol/L Chloride 104 (96-108) mmol/L Carbon Dioxide 26 (22-29) mmol/L Anion Gap 12 (12-20) BUN 18 H (9-16) mg/dL Creatinine 0.79 (0.5-1.4) mg/dL Estim Creat Clear Calc 58.3 Estimated GFR > 60 Random Glucose 123 H (60-115) mg/dL Calcium 9.3 (8.4-10.2) mg/dL Magnesium 1.8 (1.6-2.6) mg/dL Total Bilirubin 0.3 (0.0-1.0) mg/dL AST 22 (5-31) U/L ALT 17 (0-31) U/L Alkaline Phosphatase 86 (39-117) U/L Total Protein 6.9 (6.5-8.0) g/dL Albumin 4.3 (3.5-5.0) g/dL Lipase 33 (8-78) U/L Stool Occult Blood POSITIVE (NEGATIVE) Blood Type O Positive Antibody Screen NEGATIVE Crossmatch See Detail Independent Historian Clinical information obtained from an independent historian. History obtained from or confirmed by: Spouse Critical Care Time Critical Care Time Critical Care Time: Yes Total Critical Care Time: 60 Attestation: Time includes: direct patient care, patient reassessment, coordination of patient care, interpretation of data (laboratory data, pulse oximetry, arterial blood gases and chest xrays), review of patient's medical records, medical consultation and documentation of patient care. Discharge Plan Discharge Clinical Impression: Anemia, Heme positive stool Patient Disposition: Admitted As Inpatient
[2025-05-24 14:29] LABS: MANUAL DIFF FLAG NO
[2025-05-24 14:30] LABS: Hematocrit 22.3 % (37.0-47.0); Imm Gran Abs Auto 0.03 X10*3/uL (0.00-0.03); Imm Gran Pct Auto 0.5 % (0.0-0.4); Lymphocytes Absolute Auto 1.2 X10*3/uL (1.2-4.9); Mean Corpuscular HGB Conc 30.5 g/dl (31.0-35.0); Mean Corpuscular Hemoglobin 21.9 pg (27.0-33.0); Mean Corpuscular Volume 71.7 fL (80.0-98.0); NRBC Abs Auto 0.000 X10*3/uL (0.0-0.012); NRBC Pct Auto 0.0 /100WBC (0.0-0.2); Platelet Count 241 X10*3/uL (160-400); Red Blood Count 3.11 X10*6/uL (4.20-5.50); White Blood Count 5.6 X10*3/uL (4.8-10.8)
[2025-05-24 14:36] LABS: Hemoglobin 6.8 g/dl (12.0-16.0)
--- NOTE | 2025-05-24 14:46 | PC.NURSE ---
critical H&H value taken by [place] human resource ssd provider Meg. copier repair technician Becky made aware.
[2025-05-24 14:47] LABS: Alanine Aminotransferase 17 U/L (0-31); Albumin Level 4.3 g/dL (3.5-5.0); Alkaline Phosphatase 86 U/L (39-117); Anion Gap 12 (12-20); Aspartate Amino Transferase 22 U/L (5-31); Blood Urea Nitrogen 18 mg/dL (9-16); Calcium 9.3 mg/dL (8.4-10.2); Carbon Dioxide 26 mmol/L (22-29); Chloride 104 mmol/L (96-108); Creatinine Clr Calc Pharmacy 58.3; Estimated Glomerular Filt Rate > 60; Lipase 33 U/L (8-78); Magnesium 1.8 mg/dL (1.6-2.6); Potassium 4.4 mmol/L (3.3-5.1); Sodium 138 mmol/L (135-145); Total Protein 6.9 g/dL (6.5-8.0)
--- OUTSIDE RECORDS SUMMARY | 2025-05-24 15:28 | XMS_ITS | Encounter Summary ---
Author Organization [facility] Address [address] [place] [phone] Phone Care Team Providers Care Public Administration Professor Name Role Phone Pcp, Unknown Primary Care Provider Mary Diane MD Primary Care Provider Encounter Details Date Type Department Care Team (Late st Contact Info) Description 04/03/2024 Ancillary Orders [address] [address] System, Provider Not In, [facility] [address] [phone] Social History Tobacco Use Types Packs/Day Years [...] on filedocumented in this encounter Care Teams Public Administration Professor Relationship Specialty Start Date End Date Pcp, Unknown PCP - General 03/28/23 04/14/24 Mary Wood MD [facility] [place] [id number] PCP - General Internal Medicine 04/15/24 documented as of this encounter Additional Source Comments The information contained in this document represents components of the legal health record. It is not the complete legal health record.[facility]
--- OUTSIDE RECORDS SUMMARY | 2025-05-24 15:28 | XMS_ITS | Encounter Summary ---
Author Organization [facility] Address [address] [place] [phone] Phone Care Team Providers Care Automotive General Manager Name Role Phone Pcp, Unknown Primary Care Provider Mary Diane MD Primary Care Provider Encounter Details Date Type Department Care Team (Late st Contact Info) Description 04/03/2024 Ancillary Orders [address] [address] System, Provider Not In, [facility] [address] [address] Social History Tobacco Use Types Packs/Day Years [...] on filedocumented in this encounter Care Teams Automotive General Manager Relationship Specialty Start Date End Date Pcp, Unknown PCP - General 03/28/23 04/14/24 Mary Wood MD [facility] [place] [id number] PCP - General Internal Medicine 04/15/24 documented as of this encounter Additional Source Comments The information contained in this document represents components of the legal health record. It is not the complete legal health record.[facility]
--- OUTSIDE RECORDS SUMMARY | 2025-05-24 15:28 | XMS_ITS | Encounter Summary ---
Author Organization [facility] Address [address] [place] [phone] Phone Care Team Providers Care Pier Hand Helper Name Role Phone Pcp, Unknown Primary Care Provider Mary Diane MD Primary Care Provider Encounter Details Date Type Department Care Team (Late st Contact Info) Description 04/03/2024 Ancillary Orders [address] [address] System, Provider Not In, [facility] [address] [address] Social History Tobacco Use Types Packs/Day Years [...] on filedocumented in this encounter Care Teams Pier Hand Helper Relationship Specialty Start Date End Date Pcp, Unknown PCP - General 03/28/23 04/14/24 Mary Wood MD [facility] [place] [id number] PCP - General Internal Medicine 04/15/24 documented as of this encounter Additional Source Comments The information contained in this document represents components of the legal health record. It is not the complete legal health record.[facility]
--- OUTSIDE RECORDS SUMMARY | 2025-05-24 15:28 | XMS_ITS | Clinical Summary ---
Author Organization [facility] Address [address] [place] [phone] Phone Care Team Providers Care Multi Purpose Machine Operator Name Role Phone Mary Wood MD Primary [...] Calcium Citrate, 12.5 mcg D3 Active omega [id number]-fish oil (FISH OIL) 1,200 (144-216) mg Cap [...] Recently Relevant to Health Maintenance Insurance [facility] [place] [facility] MEDICARE PPO BLUE REPLACEMENT [facility] [place] [facility] MEDICARE PPO BLUE REPLACEMENT [facility] MEDICARE PPO BLUE REPLACEMENT [facility] MEDICARE PPO BLUE REPLACEMENT KRITSY HILL EL [place], [place] [facility] MEDICARE PPO BLUE REPLACEMENT KRISTY HILL [place], [place] [facility] MEDICARE PPO BLUE REPLACEMENT Care Teams Multi Purpose Machine Operator Relationship Specialty Start Date End Date Mary Wood MD [address] [place] [id number] PCP - General Internal Medicine 04/15/24 Additional Source Comments The information contained in this document represents components of the legal health record. It is not the complete legal health record.[facility]
--- NOTE | 2025-05-24 15:57 | PC.NURSE ---
IV established. blood consent done. denies pain, SOB, weak for several weeks.
[2025-05-24 16:07] LABS: OBS Int Ctl Valid YES; OBS1 POSITIVE (NEGATIVE)
--- NOTE | 2025-05-24 16:46 | PM.IMHP ---
History of Present Illness Date of Service: 05/24/25 Attending physician on admission: Zoey Benson Chief Complaint: dyspnea This is a 70-year-old female who presents to the emergency department today with complaints of abnormal labs. She reports 2 months of progressively worsening dyspnea on exertion and generalized weakness. One month ago she went to [facility] and had to be pushed around in a wheelchair. Over the past week she has had 2 episodes of black stools. She has had intermittent episodes of lightheadedness feeling like she might pass out. She was seen by her primary care provider on May 22 2 ordered labs. She was called today with the results of those labs which showed that she had severe anemia and low iron levels and was told to come to the emergency department for evaluation. In the emergency room her H/H was 6.8/22.3. Her stool was heme occult positive. One unit of blood was ordered. She denies use of alcohol, blood thinners, no frequent use of NSAIDs. While she was receiving chemotherapy for breast cancer she received blood transfusion but since she completed therapy per anemia resolved. She has not had any hematuria, vaginal bleeding, hemetemesis or nose bleeds. She reports frequent episodes of acid reflux which is typically resolved with tums. She denies abdominal pain. In October 2023 she had colonoscopy showing hemorrhoids, she has never had endoscopy. Review of Systems Review of Systems: Yes all other systems are reviewed and are negative Constitutional: Constitutional: Denies chills and Denies fever(s) Cardiovascular: Cardiovascular: Denies chest pain, Denies palpitations and Denies dyspnea Respiratory: Respiratory: Denies cough and Denies dyspnea Gastrointestinal: Gastrointestinal: Denies abdominal pain, Reports melena, Denies nausea and Denies vomiting Endocrine: Endocrine: Denies palpitations [facility] Medical History Easy fatigability Weakness Bilateral impacted cerumen Anxiety and depression History of primary hyperparathyroidism Mixed dyslipidemia History of invasive breast cancer Osteopenia Menopause Essential hypertension Nontoxic multinodular goiter Family History Father Skin cancer HTN (hypertension) Diabetes mellitus Mother Stroke Brother Depression Brother No problems noted. Sister No problems noted. Sister No problems noted. Son No problems noted. Daughter No problems noted. Surgical History S/P lumpectomy, left breast Hx of colonoscopy History of partial thyroidectomy History of parathyroidectomy Social History Housing: House Alcohol intake: never Patient Tobacco Use Status: Never used Tobacco Smoked in Last 30 Days: No e-Cigarette/Vaping Use: Never Used Second Hand Smoke Exposure: No Use of substances other than those prescribed or required for medical reasons: No Advance Directives: No Advance Directives Information Provided: No Do you have a plan to hurt others: No Plan Nutrition Risks: No Nutritional Risk Current occupational status: retired Cognitive needs: No Hearing needs: No Vision needs: Yes Meds Allergies Allergy/AdvReac Type Severity Reaction Status Date / Time amoxicillin Allergy Unknown hives Verified 05/24/25 14:09 lisinopril AdvReac Unknown cough Verified 05/24/25 14:09 Active Medications: Current Medications Acetaminophen (Acetaminophen 325 Mg Tablet) 650 mg PO Q6H PRN PRN Reason: Pain, Mild 1-3,fever,headache Calcium Carbonate (Calcium Carbonate 750 Mg Tab.Chew) 750 mg PO Q4H PRN PRN Reason: Heartburn Magnesium Hydroxide (Milk Of Magnesia 30 Ml Oral.Susp) 30 ml PO DAILY PRN PRN Reason: Constipation Melatonin (Melatonin 3 Mg Tablet) 6 mg PO BEDTIME PRN PRN Reason: Insomnia Sodium Chloride (0.9 % Sodium Chloride Flush 3 Ml Syringe) 3 ml IVFLUSH QSHIFT [facility] Home Medications ?Medication ?Instructions ?Recorded ?Confirmed ?Last Taken ?Type cholecalciferol (vitamin D3) 50 50 mcg PO DAILY 08/26/20 05/24/25 05/24/25 History mcg (2,000 unit) capsule multivitamin with minerals-folic 1 tab PO DAILY 09/06/21 05/24/25 05/24/25 History acid 200 mcg chewable tablet (Adult Multivitamin Gummies) atenolol 50 mg tablet 50 mg PO BEDTIME 05/24/25 05/24/25 05/23/25 History calcium 600 mg (as 1 tab PO DAILY 05/24/25 05/24/25 05/24/25 History carbonate)-vitamin D3 5 mcg (200 unit) tablet Physical Exam Vital Signs and Narrative: Vital Signs: Last Vital Signs Temp 98.4 F 05/24/25 16:34 Pulse 68 05/24/25 16:34 Resp 18 05/24/25 16:34 BP 162/65 H 05/24/25 16:34 Pulse Ox 98 05/24/25 14:03 O2 Del Method Room Air 05/24/25 14:03 BMI result Body Mass Index 29.9 Const: General: cooperative, comfortable, alert and awake Nutritional Appearance: average body habitus Orientation/consciousness: patient oriented x3 Eyes: Other: subconjunctival palor Resp: Effort & Inspection: normal respiratory effort, able to speak in complete sentences, no respiratory distress and no use of accessory muscles Cardio: Rate: regular rate GI: Inspection: No distended Palpation (GI): Soft to palpation and nontender Neuro: General: patient oriented x3, moves all extremities and CN's II-XI intact bilaterally Extrem: General: No pedal edema Results Labs 05/24/25 14:20 05/24/25 14:20 Labs: Laboratory Results - last 24 hr 05/24/25 05/24/25 14:20 15:53 MCV 71.7 L MCH 21.9 L MCHC 30.5 L RDW 16.0 Plt Count 241 MPV 9.5 Immature Gran % (Auto) 0.5 H Neut % (Auto) 62.4 Lymph % (Auto) 22.0 [place] % (Auto) 10.1 Eos % (Auto) 4.3 H Baso % (Auto) 0.7 Lymph # (Auto) 1.2 [place] # (Auto) 0.6 Eos # (Auto) 0.2 Baso # (Auto) 0.0 Abs Immat Gran (auto) 0.03 Absolute Neuts (auto) 3.5 Absolute Nucleated RBC 0.000 Nucleated RBC % (auto) 0.0 Anion Gap 12 Estim Creat Clear Calc 58.3 Estimated GFR > 60 Random Glucose 123 H Calcium 9.3 Magnesium 1.8 Total Bilirubin 0.3 AST 22 ALT 17 Alkaline Phosphatase 86 Total Protein 6.9 Albumin 4.3 Lipase 33 Stool Occult Blood POSITIVE Blood Type O Positive Antibody Screen NEGATIVE Crossmatch See Detail Assessment and Plan (1) Anemia: Status: Acute (2) Heme positive stool: Status: Acute Plan This is a 70-year-old male with history of hypertension, history of breast cancer status post treatment who was sent to the emergency department for progressive MONTERO, dizziness and generalized weakness by PCP when outpatient labs revealed new onset severe anemia Symptomatic iron-deficiency anemia due to probable subacute upper GI bleed iron 17 receiving 1u RBC now follow up H/H after blood transfusion is complete and in am IV PPI GI consult although unlikely for procedure tomorrow will make npo at midnight. if no procedure planned can feed HTN continue baseline atenolol, losartan HLD continue statin dvt ppx - mechanical devices; chemoprophylaxis is contraindicated due to severe symptomatic anemia code status - full code Patient will likely require two midnight stay in the hospital for management of severe symptomatic anemia requiring blood transfusion, specialist evaluation and likely procedure to identify source of bleeding. Quality Stroke Does the patient have a stroke diagnosis?: No VTE Prior VTE?: No VTE Risk Level:: Medical - moderate - high VTE Device Contraindication: N/A - Device Ordered VTE Drug Contraindication: Treatment Not Indicated
--- NOTE | 2025-05-24 16:49 | PHA.MEDREC ---
Pharmacy Consult ? Medication Reconciliation Pharmacy has completed the medication reconciliation, spoke to patient who confirmed she takes all her meds in the morning, except atenolol at night, takes a calcium + vit D and a separate vit D3 and started losartan about a month ago, takes that in AM.
--- NOTE | 2025-05-24 20:06 | PC.NURSE ---
assumed care of pt. transfusion complete. pt ambulated to bathroom with steady gate. respirations even and unlabored. at bedside.
[2025-05-24 22:37] LABS: Hematocrit 25.5 % (37.0-47.0); Hemoglobin 7.9 g/dl (12.0-16.0)
[2025-05-25] VITALS (8 sets, daily range): BP systolic 96–160; BP diastolic 48–91; PULSE 63–72; RESP 15–20; TEMP 36.1–37.1; O2SAT 96–99; BMI 28.1
[2025-05-25 04:50] LABS: MANUAL DIFF FLAG NO
[2025-05-25 04:51] LABS: Hematocrit 26.3 % (37.0-47.0); Hemoglobin 8.0 g/dl (12.0-16.0); Imm Gran Abs Auto 0.01 X10*3/uL (0.00-0.03); Imm Gran Pct Auto 0.2 % (0.0-0.4); Lymphocytes Absolute Auto 1.3 X10*3/uL (1.2-4.9); Mean Corpuscular HGB Conc 30.4 g/dl (31.0-35.0); Mean Corpuscular Hemoglobin 22.7 pg (27.0-33.0); Mean Corpuscular Volume 74.5 fL (80.0-98.0); NRBC Abs Auto 0.000 X10*3/uL (0.0-0.012); NRBC Pct Auto 0.0 /100WBC (0.0-0.2); Platelet Count 221 X10*3/uL (160-400); Red Blood Count 3.53 X10*6/uL (4.20-5.50); White Blood Count 5.4 X10*3/uL (4.8-10.8)
--- NOTE | 2025-05-25 08:17 | PM.GICN ---
History of Present Illness Data of Consult Service Date: 05/25/25 Requesting physician: Nancy Rasheed Primary Care Provider: Mary Wood MD HPI Reason for consult: symptomatic anemia, black stools; heme+ 70 YF seen at [facility] ED on 05/24/25 with complaints of abnormal labs. Pt reported she started feeling tired while walking on an incline since spring and has noted progressively worsening dyspnea on exertion and generalized weakness for the past 2 months. One month ago she went to [facility] and had to be pushed around in a wheelchair. Pt notes intermittent heartburn which resolves after she takes a Tums) and denies abdoiminal pain, change in appetite or weight. Pt notes having 2 episodes of black stools over the past week and intermittent episodes of lightheadedness feeling like she might pass out. Pt was seen by her PCP on May 22 and labs were ordered. 05/24/25 pt was called with lab results showing severe anemia and low iron levels and advised to come to the ED for evaluation. Labs in ED showed H/H of 6.8/22.3. Her stool was heme occult positive. Pt was transfused 1 U of PRBC overnight and FU H&H was 7.9 & 25.5 and has remained stable overnight. Pt denied use of alcohol, blood thinners or NSAIDs. Pt gives a hx of anemia during chemotherapy for breast cancer in 2021 which was treated with blood transfusion. Anemia resolved since she completed chemo therapy. Pt denies hematuria, vaginal bleeding, hemetemesis or nose bleeds. Pt has a hx of colon polyps and last colon in October 2023 showed diverticulosis and hemorrhoids and no polyps were detected. Patient denies having an upper endoscopy in the past. Patient denies smoking or ETOH use. She admits to loud snoring and has not been checked for sleep apnea. Pt worked as a Caregiver for the elderly, is retired and lives with her . Review of Systems Review of Systems: Yes all other systems are reviewed and are negative Constitutional: Constitutional: Denies chills and Denies fever(s) Cardiovascular: Cardiovascular: Denies chest pain, Denies palpitations and Denies dyspnea Respiratory: Respiratory: Denies cough and Denies dyspnea Gastrointestinal: Gastrointestinal: Denies abdominal pain, Reports melena, Denies nausea and Denies vomiting Endocrine: Endocrine: Denies palpitations [facility] Past Medical History Medical History Easy fatigability Weakness Bilateral impacted cerumen Anxiety and depression History of primary hyperparathyroidism Mixed dyslipidemia History of invasive breast cancer Osteopenia Menopause Essential hypertension Nontoxic multinodular goiter Family History Family History Father Skin cancer HTN (hypertension) Diabetes mellitus Mother Stroke Brother Depression Brother No problems noted. Sister No problems noted. Sister No problems noted. Son No problems noted. Daughter No problems noted. Surgical History Surgical History S/P lumpectomy, left breast Hx of colonoscopy History of partial thyroidectomy History of parathyroidectomy Social History Social History Household Members: Spouse Housing: House Do you presently have visiting nurse or other home services: No Alcohol intake: never Patient Tobacco Use Status: Never used Tobacco e-Cigarette/Vaping Use: Never Used Second Hand Smoke Exposure: No service: No Current occupational status: retired Cognitive needs: No Hearing needs: No Vision needs: Yes Meds Allergies Allergy/AdvReac Type Severity Reaction Status Date / Time amoxicillin Allergy Unknown hives Verified 05/24/25 21:11 lisinopril AdvReac Unknown cough Verified 05/24/25 21:11 Active Medications: Current Medications Acetaminophen (Acetaminophen 325 Mg Tablet) 650 mg PO Q6H PRN PRN Reason: Pain, Mild 1-3,fever,headache Atenolol (Atenolol 50 Mg Tablet) 50 mg PO BEDTIME [facility]; Protocol Last Admin: 05/24/25 20:34 Dose: 50 mg Atorvastatin Calcium (Atorvastatin Calcium 10 Mg Tablet) 10 mg PO DAILY [facility] Calcium Carbonate (Calcium Carbonate 750 Mg Tab.Chew) 750 mg PO Q4H PRN PRN Reason: Heartburn Fluoxetine HCl (Fluoxetine Hcl 20 Mg Capsule) 20 mg PO DAILY [facility] Losartan Potassium (Losartan Potassium 50 Mg Tablet) 50 mg PO DAILY [facility]; Protocol Magnesium Hydroxide (Milk Of Magnesia 30 Ml Oral.Susp) 30 ml PO DAILY PRN PRN Reason: Constipation Melatonin (Melatonin 3 Mg Tablet) 6 mg PO BEDTIME PRN PRN Reason: Insomnia Pantoprazole Sodium (Pantoprazole Sodium 40 Mg/10 Ml Vial) 40 mg IVPUSH BID@0630,1630 [facility] Last Admin: 05/25/25 06:26 Dose: 40 mg Sodium Chloride (0.9 % Sodium Chloride Flush 3 Ml Syringe) 3 ml IVFLUSH QSHIFT [facility] Last Admin: 05/25/25 01:52 Dose: Not Given Home Medications ?Medication ?Instructions ?Recorded ?Confirmed ?Last Taken ?Type cholecalciferol (vitamin D3) 50 50 mcg PO DAILY 08/26/20 05/24/25 05/24/25 History mcg (2,000 unit) capsule multivitamin with minerals-folic 1 tab PO DAILY 09/06/21 05/24/25 05/24/25 History acid 200 mcg chewable tablet (Adult Multivitamin Gummies) atenolol 50 mg tablet 50 mg PO BEDTIME 05/24/25 05/24/25 05/23/25 History calcium 600 mg (as 1 tab PO DAILY 05/24/25 05/24/25 05/24/25 History carbonate)-vitamin D3 5 mcg (200 unit) tablet Physical Exam Vital Signs: Vital Signs: Last Vital Signs Temp 98.8 F 05/25/25 06:23 Pulse 63 05/25/25 06:23 Resp 16 05/25/25 06:23 BP 149/63 H 05/25/25 06:23 Pulse Ox 96 05/25/25 06:23 O2 Del Method Room Air 05/25/25 06:23 BMI result Body Mass Index 29.9 Const: General: healthy appearing and no acute distress Nutritional Appearance: overweight Orientation/consciousness: patient oriented x3 Limitations: no limitations HEENT: Head: Yes normal to inspection Ears: hearing grossly normal bilaterally Eyes: Sclerae: sclerae normal Pupils: Equal, round and reactive pupils present Neck: Neck: Yes normal visual inspection Chest: Chest palpation & inspection: normal inspection of the chest Resp: Effort & Inspection: normal respiratory effort Auscultation: clear to auscultation bilaterally Cardio: Palpation: normal PMI Rate: regular rate Rhythm: regular rhythm Heart sounds: S1 normal heart sound present, S2 normal heart sound present and no murmurs GI: Palpation (GI): Soft to palpation, nontender and No hepatosplenomegaly present Auscultation: normal bowel sounds Rectal Exam - Female: deferred Skin: General skin exam: no rashes or lesions noted Neuro: General: patient oriented x3, gait normal and moves all extremities Cranial nerves: Yes Equal, round and reactive pupils present Psych: Appearance: grossly normal Mental Status: mental status grossly normal Results Labs 05/25/25 04:20 05/24/25 14:20 Labs: Short CBC 05/24/25 05/24/25 05/25/25 Range/Units 14:20 22:33 04:20 WBC 5.6 5.4 (4.8-10.8) X10*3/uL Hgb 6.8 L* 7.9 L 8.0 L (12.0-16.0) g/dl Hct 22.3 L 25.5 L 26.3 L (37.0-47.0) % Plt Count 241 221 (160-400) X10*3/uL BMP 05/24/25 14:20 Sodium 138 Potassium 4.4 Chloride 104 Carbon Dioxide 26 BUN 18 H Creatinine 0.79 Calcium 9.3 Liver Function 05/24/25 Range/Units 14:20 Total Bilirubin 0.3 (0.0-1.0) mg/dL AST 22 (5-31) U/L ALT 17 (0-31) U/L Alkaline Phosphatase 86 (39-117) U/L Albumin 4.3 (3.5-5.0) g/dL Assessment and Plan (1) Anemia: Status: Acute (2) Heme positive stool: Status: Acute Plan 70 YF admitted to [facility] on 05/24/25 with severe iron deficiency anemia. Pt notes intermittent heartburn which resolves after she takes a Tums) and denies abdoiminal pain, change in appetite or weight. Pt notes having 2 episodes of black stools over the past week and intermittent episodes of lightheadedness feeling like she might pass out. Labs in ED showed H/H of 6.8/22.3, iron studies cw MONICA. Her stool was heme occult positive. Pt was transfused 1 U of PRBC overnight and FU H&H was 7.9 & 25.5 and has remained stable overnight. Pt denied use of alcohol, blood thinners or NSAIDs. Patient denies having an upper endoscopy in the past. Patient denies smoking or ETOH use. She admits to loud snoring and has not been checked for sleep apnea. Severe anemia likely from an UGI source (PUD, erosive esophagitis, upper GI AVMs, Dieulafoy's or mass) Pt had a negative colonoscopy in 10/2023 RECOMMENDATIONS: 1. Agree with IV PPI 2. Monitor CBC daily and transfuse prn 3. Further evaluation with EGD scheduled on 05/26/25. EGD procedure and potential complications were reviewed with the patient. Procedures Date of Service Date of Service: 05/25/25
[2025-05-25] MEDS: 0.9 % Sodium Chloride Flush 3 ML SYRINGE IVFLUSH ×3 (09:16→23:23)
--- NOTE | 2025-05-25 10:07 | MHC.CM.PN ---
IMM 05/25/25, Pt. lives with her , she does not use home health services, or DME. PCP confirmed: Mary Wood MD. HCP is her Shaquille, copy requested. to transport home at DC, DCP: home, self care, CM to follow for DC needs.
--- NOTE | 2025-05-25 12:26 | PC.NURSE ---
Per patient request provided with clear liquids, repositioned in bed, family at bedside
--- NOTE | 2025-05-25 15:38 | P.PNIM_ITS ---
Subjective Subjective Date of Service: 05/25/25 Interval History: Anemia Review of Systems Denies any new symptoms No new episode of bleeding Review of Systems: Yes all other systems are reviewed and are negative Physical Exam 2 Exam: Exam: Appearance: Alert.? Oriented X3.? cvs: rrr, [id number]. res: clear to auscultation ,no rhonchii or wheezing abd: no rebound or guarding ,nt, bs present. ext pulses present , no cyanosis . neuro: axo3 , nonfocal. Vital Signs: Vital Signs: Last Vital Signs Temp 98.3 F 05/25/25 14:16 Pulse 67 05/25/25 14:16 Resp 15 05/25/25 14:16 BP 122/68 05/25/25 14:16 Pulse Ox 98 05/25/25 14:16 O2 Del Method Room Air 05/25/25 14:16 BMI result Body Mass Index 29.9 Objective Data Active Medications Acetaminophen (Acetaminophen 325 Mg Tablet) 650 mg PO Q6H PRN PRN Reason: Pain, Mild 1-3,fever,headache Atenolol (Atenolol 50 Mg Tablet) 50 mg PO BEDTIME [facility]; Protocol Last Admin: 05/24/25 20:34 Dose: 50 mg Documented By: ESTHER Atorvastatin Calcium (Atorvastatin Calcium 10 Mg Tablet) 10 mg PO DAILY [facility] Last Admin: 05/25/25 09:14 Dose: 10 mg Documented By: YUDY Calcium Carbonate (Calcium Carbonate 750 Mg Tab.Chew) 750 mg PO Q4H PRN PRN Reason: Heartburn Fluoxetine HCl (Fluoxetine Hcl 20 Mg Capsule) 20 mg PO DAILY [facility] Last Admin: 05/25/25 09:14 Dose: 20 mg Documented By: YUDY Losartan Potassium (Losartan Potassium 50 Mg Tablet) 50 mg PO DAILY [facility]; Protocol Last Admin: 05/25/25 09:14 Dose: 50 mg Documented By: YUDY Magnesium Hydroxide (Milk Of Magnesia 30 Ml Oral.Susp) 30 ml PO DAILY PRN PRN Reason: Constipation Melatonin (Melatonin 3 Mg Tablet) 6 mg PO BEDTIME PRN PRN Reason: Insomnia Pantoprazole Sodium (Pantoprazole Sodium 40 Mg/10 Ml Vial) 40 mg IVPUSH BID@0630,1630 [facility] Last Admin: 05/25/25 06:26 Dose: 40 mg Documented By: ESTHER Sodium Chloride (0.9 % Sodium Chloride Flush 3 Ml Syringe) 3 ml IVFLUSH QSHIFT [facility] Last Admin: 05/25/25 09:16 Dose: 3 ml Documented By: YUDY Labs 05/25/25 04:20 05/24/25 14:20 Labs: Laboratory Results - last 24 hr 05/24/25 05/24/25 05/25/25 14:20 15:53 04:20 MCV 74.5 L MCH 22.7 L MCHC 30.4 L RDW 18.5 H Plt Count 221 MPV 9.9 Immature Gran % (Auto) 0.2 Neut % (Auto) 56.9 Lymph % (Auto) 24.6 Trinity % (Auto) 10.9 Eos % (Auto) 6.7 H Baso % (Auto) 0.7 Lymph # (Auto) 1.3 Trinity # (Auto) 0.6 Eos # (Auto) 0.4 Baso # (Auto) 0.0 Abs Immat Gran (auto) 0.01 Absolute Neuts (auto) 3.1 Absolute Nucleated RBC 0.000 Nucleated RBC % (auto) 0.0 Hold Purple Top Hold Blue Top Stool Occult Blood POSITIVE Blood Type O Positive Antibody Screen NEGATIVE Crossmatch See Detail 05/25/25 08:09 MCV MCH MCHC RDW Plt Count MPV Immature Gran % (Auto) Neut % (Auto) Lymph % (Auto) Trinity % (Auto) Eos % (Auto) Baso % (Auto) Lymph # (Auto) Trinity # (Auto) Eos # (Auto) Baso # (Auto) Abs Immat Gran (auto) Absolute Neuts (auto) Absolute Nucleated RBC Nucleated RBC % (auto) Hold Purple Top SEE NOTE Hold Blue Top Cancelled Stool Occult Blood Blood Type Antibody Screen Crossmatch Assessment and Plan (1) Anemia: Status: Acute Plan 70-year-old male with history of hypertension, history of breast cancer status post treatment who was sent to the emergency department for progressive MONTERO, dizziness and generalized weakness by PCP when outpatient labs revealed new onset severe anemia Symptomatic iron-deficiency anemia due to probable subacute upper GI bleed iron 17 s/p 1P RBC follow up H/H 8. plan: IV PPI: GI consult-npo past midnight for egd ,ivf while npo HTN continue baseline atenolol, losartan HLD continue statin dvt ppx - mechanical devices; chemoprophylaxis is contraindicated due to severe symptomatic anemia code status - full code need for ongoing stay in the hospital for management of severe symptomatic anemia requiring blood transfusion, specialist evaluation and likely procedure to identify source of bleeding. Quality Stroke Does the patient have a stroke diagnosis?: No VTE Prior VTE?: No VTE Risk Level:: Medical - moderate - high VTE Device Contraindication: N/A - Device Ordered VTE Drug Contraindication: Treatment Not Indicated
[2025-05-26] VITALS (9 sets, daily range): BP systolic 88–166; BP diastolic 36–72; PULSE 63–72; RESP 16–18; TEMP 36.2–37; O2SAT 95–100
[2025-05-26] MEDS: 0.9 % Sodium Chloride Flush 3 ML SYRINGE IVFLUSH (07:48)
--- NOTE | 2025-05-26 08:05 | HO.ANESPROP2 ---
Documented by User: Shantell Flores NP 05/26/25 08:06 HPI - Anesthesia Eval Consult details Narrative: 70 yr old female for EGD New onset iron deficiency anemia: H/H 8.0/26.3; platelets normal 221 PMFSH Active Problems Active Problems: All Active Problems Heme positive stool (Acute) Anemia (Acute) Easy fatigability (Acute) Weakness (Acute) Tubular adenoma of colon (Acute) Anxiety and depression (Acute) Mixed dyslipidemia (Acute) Osteopenia (Acute) Menopause (Acute) Essential hypertension (Acute) Nontoxic multinodular goiter (Acute) Past Medical History Medical History Easy fatigability Weakness Bilateral impacted cerumen Anxiety and depression History of primary hyperparathyroidism Mixed dyslipidemia History of invasive breast cancer Osteopenia Menopause Essential hypertension Nontoxic multinodular goiter Family History Family History Father Skin cancer HTN (hypertension) Diabetes mellitus Mother Stroke Brother Depression Brother No problems noted. Sister No problems noted. Sister No problems noted. Son No problems noted. Daughter No problems noted. Surgical History Surgical History S/P lumpectomy, left breast Hx of colonoscopy History of partial thyroidectomy History of parathyroidectomy Social History Social History Household Members: Spouse Housing: House Do you presently have visiting nurse or other home services: No Alcohol intake: never Patient Tobacco Use Status: Never used Tobacco e-Cigarette/Vaping Use: Never Used Second Hand Smoke Exposure: No service: No Current occupational status: retired Cognitive needs: No Hearing needs: No Vision needs: Yes Meds Allergies Allergy/AdvReac Type Severity Reaction Status Date / Time amoxicillin Allergy Unknown hives Verified 05/24/25 21:11 lisinopril AdvReac Unknown cough Verified 05/24/25 21:11 Active Medications: Current Medications Acetaminophen (Acetaminophen 325 Mg Tablet) 650 mg PO Q6H PRN PRN Reason: Pain, Mild 1-3,fever,headache Atenolol (Atenolol 50 Mg Tablet) 50 mg PO BEDTIME [facility]; Protocol Last Admin: 05/25/25 20:49 Dose: 50 mg Atorvastatin Calcium (Atorvastatin Calcium 10 Mg Tablet) 10 mg PO DAILY [facility] Last Admin: 05/26/25 07:47 Dose: 10 mg Calcium Carbonate (Calcium Carbonate 750 Mg Tab.Chew) 750 mg PO Q4H PRN PRN Reason: Heartburn Last Admin: 05/25/25 20:49 Dose: 750 mg Fluoxetine HCl (Fluoxetine Hcl 20 Mg Capsule) 20 mg PO DAILY [facility] Last Admin: 05/26/25 07:47 Dose: 20 mg Dextrose/Sodium Chloride (D5ns) 1,000 mls @ 50 mls/hr IVCONT .Q20H [facility] Last Admin: 05/25/25 23:23 Dose: 50 mls/hr Losartan Potassium (Losartan Potassium 50 Mg Tablet) 50 mg PO DAILY [facility]; Protocol Last Admin: 05/26/25 07:47 Dose: 50 mg Magnesium Hydroxide (Milk Of Magnesia 30 Ml Oral.Susp) 30 ml PO DAILY PRN PRN Reason: Constipation Melatonin (Melatonin 3 Mg Tablet) 6 mg PO BEDTIME PRN PRN Reason: Insomnia Pantoprazole Sodium (Pantoprazole Sodium 40 Mg/10 Ml Vial) 40 mg IVPUSH BID@0630,1630 [facility] Last Admin: 05/26/25 05:57 Dose: 40 mg Sodium Chloride (0.9 % Sodium Chloride Flush 3 Ml Syringe) 3 ml IVFLUSH QSHIFT [facility] Last Admin: 05/26/25 07:48 Dose: 3 ml Home Medications ?Medication ?Instructions ?Recorded ?Confirmed ?Last Taken ?Type cholecalciferol (vitamin D3) 50 50 mcg PO DAILY 08/26/20 05/24/25 05/24/25 History mcg (2,000 unit) capsule multivitamin with minerals-folic 1 tab PO DAILY 09/06/21 05/24/25 05/24/25 History acid 200 mcg chewable tablet (Adult Multivitamin Gummies) atenolol 50 mg tablet 50 mg PO BEDTIME 05/24/25 05/24/25 05/23/25 History calcium 600 mg (as 1 tab PO DAILY 05/24/25 05/24/25 05/24/25 History carbonate)-vitamin D3 5 mcg (200 unit) tablet Exam Height,Weight and Vital Signs: Height 5 ft 1 in Weight 67.5 kg Last Vital Signs Temp 97.5 F 05/26/25 07:33 Pulse 65 05/26/25 07:33 Resp 16 05/26/25 07:33 BP 126/60 05/26/25 07:33 Pulse Ox 96 05/26/25 07:33 O2 Del Method Room Air 05/26/25 07:33 Pertinent Lab Results Pertinent Lab Results: Laboratory Tests 05/24/25 05/24/25 05/24/25 14:20 15:53 22:33 WBC 5.6 RBC 3.11 L Hgb 6.8 L* 7.9 L Hct 22.3 L 25.5 L MCV 71.7 L MCH 21.9 L MCHC 30.5 L RDW 16.0 Plt Count 241 MPV 9.5 Immature Gran % (Auto) 0.5 H Neut % (Auto) 62.4 Lymph % (Auto) 22.0 Bee % (Auto) 10.1 Eos % (Auto) 4.3 H Baso % (Auto) 0.7 Lymph # (Auto) 1.2 Bee # (Auto) 0.6 Eos # (Auto) 0.2 Baso # (Auto) 0.0 Abs Immat Gran (auto) 0.03 Absolute Neuts (auto) 3.5 Absolute Nucleated RBC 0.000 Nucleated RBC % (auto) 0.0 Hold Purple Top Hold Blue Top Sodium 138 Potassium 4.4 Chloride 104 Carbon Dioxide 26 Anion Gap 12 BUN 18 H Creatinine 0.79 Estim Creat Clear Calc 58.3 Estimated GFR > 60 Random Glucose 123 H Calcium 9.3 Magnesium 1.8 Total Bilirubin 0.3 AST 22 ALT 17 Alkaline Phosphatase 86 Total Protein 6.9 Albumin 4.3 Lipase 33 Stool Occult Blood POSITIVE Blood Type O Positive Antibody Screen NEGATIVE Crossmatch See Detail 05/25/25 05/25/25 04:20 08:09 WBC 5.4 RBC 3.53 L Hgb 8.0 L Hct 26.3 L MCV 74.5 L MCH 22.7 L MCHC 30.4 L RDW 18.5 H Plt Count 221 MPV 9.9 Immature Gran % (Auto) 0.2 Neut % (Auto) 56.9 Lymph % (Auto) 24.6 Bee % (Auto) 10.9 Eos % (Auto) 6.7 H Baso % (Auto) 0.7 Lymph # (Auto) 1.3 Bee # (Auto) 0.6 Eos # (Auto) 0.4 Baso # (Auto) 0.0 Abs Immat Gran (auto) 0.01 Absolute Neuts (auto) 3.1 Absolute Nucleated RBC 0.000 Nucleated RBC % (auto) 0.0 Hold Purple Top SEE NOTE Hold Blue Top Cancelled Sodium Potassium Chloride Carbon Dioxide Anion Gap BUN Creatinine Estim Creat Clear Calc Estimated GFR Random Glucose Calcium Magnesium Total Bilirubin AST ALT Alkaline Phosphatase Total Protein Albumin Lipase Stool Occult Blood Blood Type Antibody Screen Crossmatch Narrative Narrative: EKG 05/22/25 NSR, rate [address]-T wave changes Documented by User: Agnes Burton MD 05/26/25 16:06 [facility] Past Medical History Medical History Easy fatigability Weakness Bilateral impacted cerumen Anxiety and depression History of primary hyperparathyroidism Mixed dyslipidemia History of invasive breast cancer Osteopenia Menopause Essential hypertension Nontoxic multinodular goiter Family History Family History Father Skin cancer HTN (hypertension) Diabetes mellitus Mother Stroke Brother Depression Brother No problems noted. Sister No problems noted. Sister No problems noted. Son No problems noted. Daughter No problems noted. Family history of problems with anesthesia: No Surgical History Surgical History S/P lumpectomy, left breast Hx of colonoscopy History of partial thyroidectomy History of parathyroidectomy History of Problems with Anesthesia: No Social History Social History Household Members: Spouse Housing: House Do you presently have visiting nurse or other home services: No Alcohol intake: never Patient Tobacco Use Status: Never used Tobacco e-Cigarette/Vaping Use: Never Used Second Hand Smoke Exposure: No service: No Current occupational status: retired Cognitive needs: No Hearing needs: No Vision needs: Yes Meds Allergies Allergy/AdvReac Type Severity Reaction Status Date / Time amoxicillin Allergy Unknown hives Verified 05/24/25 21:11 lisinopril AdvReac Unknown cough Verified 05/24/25 21:11 Home Medications ?Medication ?Instructions ?Recorded ?Confirmed ?Last Taken ?Type cholecalciferol (vitamin D3) 50 50 mcg PO DAILY 08/26/20 05/24/25 05/24/25 History mcg (2,000 unit) capsule multivitamin with minerals-folic 1 tab PO DAILY 09/06/21 05/24/25 05/24/25 History acid 200 mcg chewable tablet (Adult Multivitamin Gummies) atenolol 50 mg tablet 50 mg PO BEDTIME 05/24/25 05/24/25 05/23/25 History calcium 600 mg (as 1 tab PO DAILY 05/24/25 05/24/25 05/24/25 History carbonate)-vitamin D3 5 mcg (200 unit) tablet Exam Airway Mallampati Class: II TM Dist: >3cm Neck ROM: Full Heart: rrr Lungs: cta Assessment and Plan Assessment Anesthesia Assessment: Anesthesia Plan Discussed and Chart Reviewed Final Anesthetic Review Family History of Problems with Anesthesia: No History of Problems with Anesthesia: No NPO: Yes ASA Class: III Final Preanesthetic Review: No Changes in Pt Med Stat, Meds/Allgs Chart Reviewed and Consent Obtained/Reviewed Patient Risk: Intermediate Procedure Risk: Intermediate Anesthetic Plan Anesthetic Plan: MAC: Disposition: Standard PACU
--- NOTE | 2025-05-26 11:49 | MHC.CM.PN ---
PER MD ROUNDS, PT NOT MEDICALLY CLEAR PLAN FOR EGD CM FOLLOWING FOR CHANGING DC NEEDS
--- NOTE | 2025-05-26 16:01 | MHC.SHP ---
Pre-Procedural Eval Section A - 24 Hr Update-Section A only Date of Service: 05/26/25 The patient is an INPATIENT: Yes Changes since office visit: Yes New Medical Problems, Yes Changes in Medication and Yes Patient answered all questions; No Cold of Flu in the past 2 weeks The patient has been examined within 24 hours of the surgical procedure. The History & Physical has been completed within 30 days and I have reviewed it.: Yes Section B - Complete if H&P > 30 days Chief Complaint: symptomatic anemia Allergies: Allergies Allergy/AdvReac Type Severity Reaction Status Date / Time amoxicillin Allergy Unknown hives Verified 05/24/25 21:11 lisinopril AdvReac Unknown cough Verified 05/24/25 21:11 Plan Diagnosis/Plan: Unchanged I have reviewed the history and physical and performed a pertinent physical examination on my patient. No changes have occurred unless specified. Time Spent With Patient Time: Total time managing care of this patient today ____ minutes.
--- NOTE | 2025-05-26 16:14 | W.PM.OPN ---
Operative Note Operative Note Date of Service: 05/26/25 Narrative: FLEXIBLE TRANSORAL UPPER GASTROINTESTINAL ENDOSCOPY WITH BIOPSIES Pre-op diagnosis: Iron deficiancy anemia Post-op diagnosis: Large hiatal hernia with Akira's ulcers, Gastritis, Endoscopist:? Mick Matias MD Anesthesia:?MAC UPPER ENDOSCOPY Consent: Indications for the procedure and potential complications of bleeding, perforation, reaction to medications and missed diagnosis were discussed with the patient and informed consent was obtained. Instrument: Olympus GIF H 190 mid size upper endoscope Monitoring: Vital signs and clinical assessment, continuous EKG monitoring, Pulse oximetry, Carbon Dioxide monitoring and blood pressure monitoring were done throughout the procedure. Procedure: The patient was placed in the left lateral decubitis position and pre-procedure medications were administered and a bite block was placed. The endoscope was inserted into the mouth and advanced under direct vision to the third part of duodenum. A careful inspection was made as the upper endoscope was withdrawn including a retroflexed examination of the proximal stomach; Findings and interventions are described below. Findings: Larynx: Normal Esophagus: GE junction at 30 cms, large hiatal hernia 30 to 35 cms with chronic appearing erosions on gastric side of GE junction. Mildly tortuous esophagus without stricture, ring, esophagitis or Hartmann's. Stomach: Moderate gastric antral erythema - biopsies were obtained to check for Helicobacter pylori Grade 2 flap valve on retroflexed examination of the cardia. Duodenum: Normal bulb and descending duodenum Intervention: Biopsies as noted above Impression and Post Procedure Diagnosis: Endoscopy Findings: ESOPHAGUS: Large hiatal hernia 30 to 35 cms with chronic appearing erosions on gastric side of GE junction. STOMACH: Antral gastritis DUODENUM: Normal No blood seen in the UGI tract during EGD. MONICA possibly slow GI blood loss from erosions in the hiatal hernia sac versus small bowel source. Plan: 1. Resume a cardiac diet - order placed. 2. Pt can be discharged on twice daily PPI and oral iron + Vitamin C 3. Capsule endoscopy as outpatient. Above findings were reviewed with the patient and relevant handouts were given and the discharge area.
--- NOTE | 2025-05-26 16:49 | PM.DS ---
DS: Providers Provider Date of admission: 05/24/25 16:14 Date of discharge: 05/26/25 Primary care physician: Mary Wood MD Admitting clinician: Zoey Benson Attending physician on admission: Zoey Benson Consults: 05/24/25 16:39 Consult to Gastroenterology Routine Consulting Provider: [facility] Reason for consultation: symptomatic anemia, black stools; heme+ Has provider been notified: No DS: Diagnosis Discharge Diagnosis (1) Anemia: Status: Acute (2) Heme positive stool: Status: Acute DS: Summary Hospital Course Hospital Course: HPI:70-year-old female who presents to the emergency department today with complaints of abnormal labs. She reports 2 months of progressively worsening dyspnea on exertion and generalized weakness. One month ago she went to [facility] and had to be pushed around in a wheelchair. Over the past week she has had 2 episodes of black stools. She has had intermittent episodes of lightheadedness feeling like she might pass out. She was seen by her primary care provider on May 22 2 ordered labs. She was called today with the results of those labs which showed that she had severe anemia and low iron levels and was told to come to the emergency department for evaluation. In the emergency room her H/H was 6.8/22.3. Her stool was heme occult positive. One unit of blood was ordered. She denies use of alcohol, blood thinners, no frequent use of NSAIDs. While she was receiving chemotherapy for breast cancer she received blood transfusion but since she completed therapy per anemia resolved. She has not had any hematuria, vaginal bleeding, hemetemesis or nose bleeds. She reports frequent episodes of acid reflux which is typically resolved with tums. She denies abdominal pain. In October 2023 she had colonoscopy showing hemorrhoids, she has never had endoscopy. Hospital course: 70-year-old male with history of hypertension, history of breast cancer status post treatment who was sent to the emergency department for progressive MONTERO, dizziness and generalized weakness by PCP when outpatient labs revealed new onset severe anemia Symptomatic iron-deficiency anemia due to probable subacute upper GI bleed iron 17,s/p 1P RBC Patient was admitted to the hospital because of anemia symptomatic: Received 1 PRBC, started on PPI and GI consulted: Patient EGD done: Found to have large hiatal herniachronic ulcers in the hernia sac and some gastritis: H&H improved to 8, patient is currently asymptomatic. No new symptoms, tolerating diet. Patient will be going home with PPI and iron Monitor CBC outpatient and follow up with PCP and GI for further management. plan: Continue iron, ppi Monitor CBC outpatient Follow up with PCP and GI outpatient Above management discussed with the patient detail length she understand and in agreement with the plan, time spent 50 minute. Time Attestation Total time managing care of this patient today: 50 mintues. Discharge Coordination Time (in mins): 50 minute. Quality: Safe Use of Opioids Does Pt have an Active Cancer Diagnosis on the Problem List?: No Quality: Stroke Does the patient have a stroke diagnosis?: No Physical Exam Exam: Exam: Appearance: Alert.? Oriented X3.? cvs: rrr, [id number] , no murmur res: clear to auscultation ,no rhonchii or wheezing abd: no rebound or guarding ,nt, bs present. ext pulses present , no cyanosis . neuro: axo3 , nonfocal. Vital Signs: Vital Signs: Last Vital Signs Temp 98.4 F 05/26/25 16:33 Pulse 72 05/26/25 16:33 Resp 16 05/26/25 16:33 BP 88/36 L 05/26/25 16:33 Pulse Ox 100 05/26/25 16:33 O2 Del Method Simple Mask 05/26/25 16:33 O2 Flow Rate 8 05/26/25 16:33 BMI result Body Mass Index 28.1 DS: Data Data Completed and Pending Pending studies at discharge: Pending at discharge 05/26/25 16:21 Surgical [PTH] Routine Labs on day of discharge: Laboratory Results - last 24 hr 05/24/25 14:20 Smear Path Review SEE NOTE Discharge Plan Discharge Anticipated Discharge Date/Time: 05/26/25 16:44 Patient Disposition: Home, Self-Care Discharge Diagnosis: Gib Referrals: Mary Wood MD [Primary Care Provider, Internal Medicine] - 1 Week Mick Matias MD [Physician, Gastroenterology] - 1 Week Discharge Medications: New ferrous sulfate [iron] 325 mg (65 mg iron) tablet 325 mg PO BID Qty: 120 0RF omeprazole 40 mg capsule,delayed release(DR/EC) 40 mg PO BID Qty: 180 0RF Continued atorvastatin 10 mg tablet 10 mg PO DAILY Qty: 90 1RF fluoxetine 20 mg capsule 20 mg PO DAILY Qty: 90 3RF losartan 50 mg tablet 50 mg PO DAILY Qty: 30 5RF Rx Instructions: Take in a.m. with breakfast calcium carbonate-vitamin D3 600 mg-5 mcg (200 unit) Tablet 1 tab PO DAILY atenolol 50 mg tablet 50 mg PO BEDTIME cholecalciferol (vitamin D3) 50 mcg (2,000 unit) capsule 50 mcg PO DAILY Adult Multivitamin Gummies 200 mcg tablet,chewable 1 tab PO DAILY Discharge Orders: Discharge Order (Routine); Ordered 05/26/25 Ordered By: Zoey Benson Diet: Advance to usual diet Activity on Discharge: As tolerated Stand Alone Forms: Patient Portal Discharge page Print Language: Moldovan Other Ambulatory Orders: Complete Blood Count no Diff (Routine) Timeframe: 1 Week Facility: [facility] - Location: Laboratory Ordered By: Zoey Benson Care Plan Goals: Patient was admitted to the hospital because of anemia symptomatic: Received 1 PRBC, started on PPI and GI consulted: Patient EGD done: Found to have large hiatal herniachronic ulcers in the hernia sac and some gastritis: H&H improved to 8, patient is currently asymptomatic. No new symptoms, tolerating diet. Patient will be going home with PPI and iron Monitor CBC outpatient and follow up with PCP and GI for further management. Health Concerns: As above. Plan of Treatment: As above. Assessment: As above.
== END 2025-05-26 19:21 | disposition home or self-care (01) | DRG 382 ==
LOC: HO.ED 15:44 → HO.EDOVER 16:22 → HO.IMC 05-25 14:41
PROVIDERS: Internal Medicine Gastroenterology; Nurse Practitioner Family; Physician Assistant Medical; Admitting Provider Physician Assistant Medical; Emergency Provider Emergency Medicine; PCP Internal Medicine; Visit Provider Internal Medicine
PROC: 0DJ08ZZ Inspection of Upper Intestinal Tract, Via Natural or Artificial Opening Endoscopic (ICD-10-PCS; CPT 43235; principal; 2025-05-26 16:00)
DX: K22.11 Ulcer of esophagus with bleeding (principal); D50.0 Iron deficiency anemia secondary to blood loss (chronic); K29.71 Gastritis, unspecified, with bleeding; K44.9 Diaphragmatic hernia without obstruction or gangrene; I10 Essential (primary) hypertension; E78.5 Hyperlipidemia, unspecified; Z85.3 Personal history of malignant neoplasm of breast; Z79.899 Other long term (current) drug therapy
CPT/HCPCS: 36415; 80053; 82272; 82607; 82746; 83540; 83690; 83735; 84443; 85014; 85018; 85025; 86850; 86900; 86901; 86923; 88305; 88342; 99212; 99285; J2003; J2470; J2704; P9016

== ENCOUNTER → 2025-05-24 16:14 | Outpatient (BNV) | payer MEDICARE, SELFPAY | PROVIDERS: Admitting Provider Physician Assistant Medical; Emergency Provider Emergency Medicine; PCP Internal Medicine; Visit Provider Internal Medicine Gastroenterology | DX: D64.9 Anemia, unspecified (principal); R19.5 Other fecal abnormalities | CPT/HCPCS: 99222 ==

== ENCOUNTER → 2025-05-24 16:14 | Outpatient (BNV) | payer MEDICARE, SELFPAY | PROVIDERS: Admitting Provider Physician Assistant Medical; Emergency Provider Emergency Medicine; PCP Internal Medicine; Visit Provider Physician Assistant Medical | DX: D64.9 Anemia, unspecified (principal); R19.5 Other fecal abnormalities | CPT/HCPCS: 99223; 99232 ==

== ENCOUNTER 2025-06-03 10:49 | Outpatient (REF) | payer MEDICARE, SELFPAY ==
--- OUTSIDE RECORDS SUMMARY | 2025-06-04 10:52 | XMS_ITS | Clinical Summary ---
Author Organization [facility] Address [address] [place] [phone] Phone Care Team Providers Care Past Due Accounts Clerk Name Role Phone Mary Wood MD Primary [...] Calcium Citrate, 12.5 mcg D3 Active omega 5-jqy-pju-fish oil (FISH OIL) 1,200 (144-216) mg Cap [...] Recently Relevant to Health Maintenance Insurance [facility] [place] [facility] MEDIC[facility] PPO BLUE [facility]PLACEMENT [facility] [place] [facility] MEDIC[facility] PPO BLUE REPLACEMENT [facility] MEDICARE PPO BLUE REPLACEMENT [facility] MEDICARE PPO BLUE REPLACEMENT KRISTY [place] [facility] MEDICARE PPO BLUE REPLACEMENT KRISTY [place] [facility] MEDICARE PPO BLUE REPLACEMENT Care Teams Past Due Accounts Clerk Relationship Specialty Start Date End Date Mary Wood MD [address] [facility] [place] [address] PCP - General Internal Medicine 04/15/24 Additional Source Comments The information contained in this document represents components of the legal health record. It is not the complete legal health record.[facility]
--- OUTSIDE RECORDS SUMMARY | 2025-06-04 10:52 | XMS_ITS | Encounter Summary ---
Author Organization [facility] Address [address] [place] [phone] Phone Care Team Providers Care Sewer System Supervisor Name Role Phone Pcp, Unknown Primary Care Provider Mary Diane MD Primary Care Provider Encounter Details Date Type Department Care Team (Late st Contact Info) Description 04/03/2024 Ancillary Orders [address] [address] System, Provider Not In, [facility] [address] [address] Social History Tobacco Use Types Packs/Day Years [...] on filedocumented in this encounter Care Teams Sewer System Supervisor Relationship Specialty Start Date End Date Pcp, Unknown PCP - General 03/28/23 04/14/24 Mary Wood MD [facility] [place] [address] PCP - General Internal Medicine 04/15/24 documented as of this encounter Additional Source Comments The information contained in this document represents components of the legal health record. It is not the complete legal health record.[facility]
--- OUTSIDE RECORDS SUMMARY | 2025-06-04 10:52 | XMS_ITS | Encounter Summary ---
Author Organization [facility] Address [address] [place] [phone] Phone Care Team Providers Care Commercial Carpet Installer Name Role Phone Pcp, Unknown Primary Care Provider Mary Diane MD Primary Care Provider Encounter Details Date Type Department Care Team (Late st Contact Info) Description 04/03/2024 Ancillary Orders [address] [address] System, Provider Not In, [facility] [address] [address] Social History Tobacco Use Types Packs/Day Years [...] on filedocumented in this encounter Care Teams Commercial Carpet Installer Relationship Specialty Start Date End Date Pcp, Unknown PCP - General 03/28/23 04/14/24 Mary Wood MD [facility] [place] [address] PCP - General Internal Medicine 04/15/24 documented as of this encounter Additional Source Comments The information contained in this document represents components of the legal health record. It is not the complete legal health record.[facility]
--- OUTSIDE RECORDS SUMMARY | 2025-06-04 10:52 | XMS_ITS | Encounter Summary ---
Author Organization [facility] Address [address] [place] [address] Phone Care Team Providers Care Malt Roaster Name Role Phone Pcp, Unknown Primary Care Provider Mary Diane MD Primary Care Provider Encounter Details Date Type Department Care Team (Late st Contact Info) Description 04/03/2024 Ancillary Orders [address] [address] System, Provider Not In, [facility] [address] [address] Social History Tobacco Use Types Packs/Day Years [...] on filedocumented in this encounter Care Teams Malt Roaster Relationship Specialty Start Date End Date Pcp, Unknown PCP - General 03/28/23 04/14/24 Mary Wood MD [facility] [place] [address] PCP - General Internal Medicine 04/15/24 documented as of this encounter Additional Source Comments The information contained in this document represents components of the legal health record. It is not the complete legal health record.[facility]
[2025-06-04 11:33] LABS: Resp Syncy Virus RNA Qual PCR NEGATIVE (Negative); SARS COV2 PCR INHOUSE NEGATIVE (Negative)
== END 2025-06-03 10:50 | disposition home or self-care (01) ==
LOC: HO.LNP 10:49
PROVIDERS: Visit Provider Internal Medicine
DX: Z03.818 Encounter for observation for suspected exposure to other biological agents ruled out (principal)
CPT/HCPCS: 87637

== ENCOUNTER 2025-06-03 11:49 | Outpatient (AMB) | payer MEDICARE, SELFPAY ==
--- NOTE | 2025-06-03 11:58 | MHC.PC.OV ---
Vital Signs 06/03/25 11:59 Height 5 ft 1 in Weight 158 lb BMI 29.9 BP 132/70 Blood Pressure Location Lt brachial Position Sitting Respiration 16 Pulse 55 Pulse Source Pulse Oximeter Temp 99.7 F Temp Source Oral Pulse Oximetry (%) 98 Oxygen Delivery Method Room Air Intake Visit Reasons: TCM sym. anemia Intake Note: Pt is here today for a TCM/anemia Lasting Machine Operator Required: No Allergies amoxicillin Allergy (Unknown, Verified 06/11/25 00:07) hives lisinopril Adverse Reaction (Unknown, Verified 06/11/25 00:07) cough Medication List - Last Reconciled 06/11/25 by Mary Wood MD atenolol 50 mg PO BEDTIME atorvastatin 10 mg PO DAILY calcium carbonate-vitamin D3 600 mg-5 mcg (200 unit) 1 tab PO DAILY cholecalciferol (vitamin D3) 50 mcg PO DAILY ferrous sulfate (iron) 325 mg PO BID fluoxetine 20 mg PO DAILY losartan 50 mg PO DAILY multivit with min-folic acid 200 mcg (Adult Multivitamin Gummies) 1 tab PO DAILY omeprazole 40 mg PO BID Tobacco use date assessed: 06/03/25 Fall risk assessment: No Falls in past year Last assessed Fall Risk: 06/03/25 Dental Screening Dental Screen Date: 06/03/25 Did you have a dental visit in the last 12 months?: Yes Did you have a dental problem in the last 6 months where you did not have access to dental care?: No Was dental information given to patient?: Patient has dentist HPI TCM sym. anemia HPI Details 70-year-old male with history of hypertension, history of breast cancer here for her TCM visit. She was recently admitted on 05/24/2025 for symptomatic anemia. She received 1 PRBC, started on PPI and GI consulted: Patient EGD done: Found to have hiatal hernia with chronic appearing erosions on gastric side of GE junction, antral gastritis, no blood seen in upper GI tract during EGD but anemia possibly from slow GI blood loss some erosions in the hiatal hernia sac versus small-bowel source. She was discharged on omeprazole 40 mg 1 capsule twice a day, oral iron and vitamin-C. She was discharged on 05/26/2025 feeling better with hemoglobin now up to 8, asymptomatic, tolerating diet, with planned capsule endoscopy as outpatient. TCM TCM Information Date of Discharge 05/26/25 Discharged From [facility] Interactive Contact Date (Reference documentation from this date) 05/29/25 [facility] Medical History (Updated 06/11/25 @ 00:40 by Mary Wood MD) Multiple gastric erosions Large hiatal hernia History of adenomatous polyp of colon Iron deficiency anemia Anxiety and depression History of primary hyperparathyroidism Mixed dyslipidemia History of invasive breast cancer Osteopenia Menopause Essential hypertension Nontoxic multinodular goiter Surgical History S/P lumpectomy, left breast Hx of colonoscopy History of partial thyroidectomy History of parathyroidectomy Family History Father Skin cancer HTN (hypertension) Diabetes mellitus Mother Stroke Brother Depression Brother No problems noted. Sister No problems noted. Sister No problems noted. Son No problems noted. Daughter No problems noted. Social History Household Members: Spouse Housing: House Do you presently have visiting nurse or other home services: No Alcohol intake: never Patient Tobacco Use Status: Never used Tobacco e-Cigarette/Vaping Use: Never Used Second Hand Smoke Exposure: No service: No Current occupational status: retired Cognitive needs: No Hearing needs: No Vision needs: Yes Questionnaire PHQ-9 Over the last 2 weeks, how often have you been bothered by any of the following problems? 1. Little interest or pleasure in doing things: not at all 2. Feeling down, depressed, or hopeless: not at all 3. Trouble falling or staying asleep, or sleeping too much: not at all 4. Feeling tired or having little energy: not at all 5. Poor appetite or overeating: not at all 6. Feeling bad about yourself - or that you are a failure or have let yourself or your family down: not at all 7. Trouble concentrating on things, such as reading the newspaper or watching television: not at all 8. Moving or speaking so slowly that other people could have noticed. Or the opposite - being so fidgety or restless that you have been moving around a lot more than usual: not at all 9. Thoughts that you would be better off or of hurting yourself in some way: not at all Total score: 0 Depression Screening Interpretation: Negative Depression Screening Done: Yes Source: Developed by Drs. Jarvis Sagastume, Mary Lara, Ric Alberts and colleagues, with an educational tom from [employer]. Thrive Questionnaire Date Thrive assessed: 09/04/24 I am a: Patient What is your living situation today?: I have a steady place to live Within the past 12 months, did the food you bought not last and you didn't have the money to get more?: Never true Within the past 12 months, did you worry whether your food would run out before you got money to buy more?: Never true Do you have trouble paying for medicines?: No Do you have trouble getting transportation to medical appointments?: No Do you have trouble paying your heating and electricity bill?: No Do you have trouble taking care of your child, family member or friend?: No Do you have trouble with day-to-day activities such as bathing, preparing meals, shopping, managing finances, etc.?: No Are you currently unemployed and looking for a job?: No Are you interested in more education?: No Currently or been in a relationship where the following occur: No concerns reported THRIVE Score: 0 HEATHER-7 AMB Questionnaire HEATHER-7 Date HEATHER - 7 assessed: 09/10/24 Source: Developed by Drs. Jarvis Sagastume, Mary Lara, Ric Alberts and colleagues, with an educational tom from [employer]. Review of Systems Const Denies body aches, Denies fever(s), Denies headache(s) and Denies lethargy Eyes Details: sees Dr Sewell yearly ENT Denies headache(s), Denies nasal congestion and Denies nasal discharge Card Denies chest pain, Denies lightheadedness and Denies dyspnea Resp Denies cough and Denies dyspnea GI Denies abdominal pain, Denies melena, Denies hematochezia, Denies change in bowel habits and Denies heartburn Denies urinary frequency, Denies dysuria and Denies urinary urgency Musc Denies back pain, Denies myalgias, Denies arthralgias and Denies muscle weakness Skin/Breast Details: goes to [facility] for her mammogram, sees [facility] for her routine skin check Reports system reviewed and no additional complaints, except as documented Neuro Reports no additional complaints and Denies headache(s) Psych Reports no additional complaints Endo Details: sees Dr. Bradford for her thyroid and osteopenia Reports no additional complaints and Denies polydipsia Paddy/Lymph Reports no additional complaints Aller/Immun Denies seasonal rhinorrhea Physical exam (Primary Care) Vital Signs: Last Vital Signs Temp 99.7 F 06/03/25 11:59 Pulse 55 06/03/25 11:59 Resp 16 06/03/25 11:59 BP 132/70 06/03/25 11:59 Pulse Ox 98 06/03/25 11:59 Oxygen Delivery Method Room Air 06/03/25 11:59 BMI result Body Mass Index 29.9 Tobacco/Smoking Status: Tobacco use Status Tobacco use date assessed 06/03/25 06/03/25 12:03 Patient Tobacco Use Status Never used Tobacco 06/03/25 12:03 e-Cigarette/Vaping Use Never Used 06/03/25 12:03 Depression Screening Interpretation: Negative Thrive Assessment: Date of Thrive Assessment Date Thrive assessed 09/04/24 06/03/25 12:03 Currently or been in a relationship where the following occur: No concerns reported Narrative Const Other: Alert oriented x3, no acute distress noted, ambulatory with normal gait HENNM Head: Yes normocephalic General nose exam: Normal external nose present Face and sinus: Yes face symmetric Mouth: Normal oral and palatal mucosa present and moist mucous membranes Eyes Other: Pale Palpebral conjunctiva, anicteric Neck Neck: Yes full ROM, Yes no lymphadenopathy and Yes supple Thyroid: other (Nonpalpable) Resp Auscultation: clear to auscultation bilaterally Cardio Other: S1-S2 present regular rate and rhythm GI Other: Normal bowel sounds, soft, nontender, no mass palpated General: Yes no CVA tenderness and Yes deferred Back/Spine/Pelvis Back: no CVA tenderness and No back tenderness Neuro General: gait normal, tone normal, moves all extremities, Normal light touch and pain sensation and no focal motor deficits Extrem General: Yes full ROM, Yes no joint enlargement, Yes no pedal edema, Yes no calf tenderness and Yes normal gait Psych Appearance: grossly normal and well kempt Mental Status: mental status grossly normal Speech and movement: Normal speech and movement present Affect: normal affect Coding Level of Care Code TCM Mod MDM <= 7 Days Diagnoses Iron deficiency anemia D50.9 Chronic multiple gastric erosions K25.7 Gastric ulcer chronicity: chronic Essential hypertension I10 Mixed dyslipidemia E78.2 Nontoxic multinodular goiter E04.2 Osteopenia of left hip M85.852 Osteopenia location: hip Laterality: left Anxiety and depression F41.9; F32.A Assessment & Plan Assessment & Plan (1) Iron deficiency anemia: Code(s): D50.9 - Iron deficiency anemia, unspecified Category: Medical Plan: Continue iron supplement taken together with vitamin-C for better absorption. Capsule endoscopy do benign outpatient and follow-up with GI clinic, repeat CBC, iron profile, ferritin follow-up (2) Multiple gastric erosions: Code(s): K25.9 - Gastric ulcer, unspecified as acute or chronic, without hemorrhage or perforation Category: Medical Qualifiers: Gastric ulcer chronicity: chronic Qualified Code(s): K25.7 - Chronic gastric ulcer without hemorrhage or perforation Plan: Started on omeprazole 40 mg 1 capsule twice a day (3) Essential hypertension: Code(s): I10 - Essential (primary) hypertension Category: Medical Plan: Blood pressure stable and controlled on atenolol 50 mg and losartan 50 mg daily (4) Mixed dyslipidemia: Code(s): E78.2 - Mixed hyperlipidemia Category: Medical Plan: Continued on atorvastatin 10 mg daily (5) Nontoxic multinodular goiter: Comment: followed by [facility] endocrinology clinic Code(s): E04.2 - Nontoxic multinodular goiter Category: Medical Plan: Followed by endocrine clinic at [facility] (6) Osteopenia: Code(s): M85.80 - Other specified disorders of bone density and structure, unspecified site Category: Medical Qualifiers: Osteopenia location: hip Laterality: left Qualified Code(s): M85.852 - Other specified disorders of bone density and structure, left thigh Plan: Followed by endocrine clinic at [facility] (7) Anxiety and depression: Code(s): F41.9 - Anxiety disorder, unspecified; F32.A - Depression, unspecified Category: Medical Plan: Stable on fluoxetine 20 mg daily Orders: Orders Complete Blood Count Auto Diff 06/12/25 I10 - Essential (primary) hypertension, E78.2 - Mixed hyperlipidemia, D50.9 - Iron deficiency anemia, unspecified, E04.2 - Nontoxic multinodular goiter, M85.852 - Other specified disorders of bone density and structure, left thigh, D12.6 - Benign neoplasm of colon, unspecified, Z78.0 - Asymptomatic menopausal state Ferritin 06/12/25 I10 - Essential (primary) hypertension, E78.2 - Mixed hyperlipidemia, D50.9 - Iron deficiency anemia, unspecified, E04.2 - Nontoxic multinodular goiter, M85.852 - Other specified disorders of bone density and structure, left thigh, D12.6 - Benign neoplasm of colon, unspecified, Z78.0 - Asymptomatic menopausal state TSH reflex Free T4 06/12/25 I10 - Essential (primary) hypertension, E78.2 - Mixed hyperlipidemia, D50.9 - Iron deficiency anemia, unspecified, E04.2 - Nontoxic multinodular goiter, M85.852 - Other specified disorders of bone density and structure, left thigh, D12.6 - Benign neoplasm of colon, unspecified, Z78.0 - Asymptomatic menopausal state Basic Metabolic Panel Fasting 06/12/25 I10 - Essential (primary) hypertension, E78.2 - Mixed hyperlipidemia, D50.9 - Iron deficiency anemia, unspecified, E04.2 - Nontoxic multinodular goiter, M85.852 - Other specified disorders of bone density and structure, left thigh, D12.6 - Benign neoplasm of colon, unspecified, Z78.0 - Asymptomatic menopausal state Aspartate Amino Transferase 06/12/25 I10 - Essential (primary) hypertension, E78.2 - Mixed hyperlipidemia, D50.9 - Iron deficiency anemia, unspecified, E04.2 - Nontoxic multinodular goiter, M85.852 - Other specified disorders of bone density and structure, left thigh, D12.6 - Benign neoplasm of colon, unspecified, Z78.0 - Asymptomatic menopausal state Alanine Aminotransferase 06/12/25 I10 - Essential (primary) hypertension, E78.2 - Mixed hyperlipidemia, D50.9 - Iron deficiency anemia, unspecified, E04.2 - Nontoxic multinodular goiter, M85.852 - Other specified disorders of bone density and structure, left thigh, D12.6 - Benign neoplasm of colon, unspecified, Z78.0 - Asymptomatic menopausal state Lipid Panel 06/12/25 I10 - Essential (primary) hypertension, E78.2 - Mixed hyperlipidemia, D50.9 - Iron deficiency anemia, unspecified, E04.2 - Nontoxic multinodular goiter, M85.852 - Other specified disorders of bone density and structure, left thigh, D12.6 - Benign neoplasm of colon, unspecified, Z78.0 - Asymptomatic menopausal state IRON PROFILE 06/12/25 I10 - Essential (primary) hypertension, E78.2 - Mixed hyperlipidemia, D50.9 - Iron deficiency anemia, unspecified, E04.2 - Nontoxic multinodular goiter, M85.852 - Other specified disorders of bone density and structure, left thigh, D12.6 - Benign neoplasm of colon, unspecified, Z78.0 - Asymptomatic menopausal state Vitamin D 25-OH Total 06/12/25 I10 - Essential (primary) hypertension, E78.2 - Mixed hyperlipidemia, D50.9 - Iron deficiency anemia, unspecified, E04.2 - Nontoxic multinodular goiter, M85.852 - Other specified disorders of bone density and structure, left thigh, D12.6 - Benign neoplasm of colon, unspecified, Z78.0 - Asymptomatic menopausal state
[2025-06-03 11:59] VITALS: BP 132/70; PULSE 55; RESP 16; TEMP 37.6; O2SAT 98; BMI 29.9
--- OUTSIDE RECORDS SUMMARY | 2025-06-03 13:06 | XMS_ITS | Encounter Summary ---
Author Organization [facility] Address [address] [place] [id number] Phone Care Team Providers Care Laborer Prestressed Concrete Name Role Phone Pcp, Unknown Primary Care Provider Mary Diane MD Primary Care Provider Encounter Details Date Type Department Care Team (Late st Contact Info) Description 04/03/2024 Ancillary Orders [address] [address] System, Provider Not In, [facility] [address] [id number] Social History Tobacco Use Types Packs/Day Years [...] on filedocumented in this encounter Care Teams Laborer [employer] Relationship Specialty Start Date End Date Pcp, Unknown PCP - General 03/28/23 04/14/24 Mary Wood MD [facility] [place] [address] PCP - General Internal Medicine 04/15/24 documented as of this encounter Additional Source Comments The information contained in this document represents components of the legal health record. It is not the complete legal health record.[facility]
--- OUTSIDE RECORDS SUMMARY | 2025-06-03 13:06 | XMS_ITS | Encounter Summary ---
Author Organization [facility] Address [address] [place] [phone] Phone Care Team Providers Care Glove Maker Name Role Phone Pcp, Unknown Primary Care Provider Mary Diane MD Primary Care Provider Encounter Details Date Type Department Care Team (Late st Contact Info) Description 04/03/2024 Ancillary Orders [address] [address] System, Provider Not In, [facility] [address] [address] Social History Tobacco Use Types Packs/Day Years [...] on filedocumented in this encounter Care Teams Glove Maker Relationship Specialty Start Date End Date Pcp, Unknown PCP - General 03/28/23 04/14/24 Mary Wood MD [facility] [place] [address] PCP - General Internal Medicine 04/15/24 documented as of this encounter Additional Source Comments The information contained in this document represents components of the legal health record. It is not the complete legal health record.[facility]
--- OUTSIDE RECORDS SUMMARY | 2025-06-03 13:06 | XMS_ITS | Clinical Summary ---
Author Organization [facility] Address [address] [place] [phone] Phone Care Team Providers Care President Celebrity Acquistion Name Role Phone Mary Wood MD Primary [...] Calcium Citrate, 12.5 mcg D3 Active omega 6-xgv-out-fish oil (FISH OIL) 1,200 (144-216) mg Cap [...] Recently Relevant to Health Maintenance [facility] [place] [facility]IC[facility] PPO BLUE REPLACEMENT [facility] [place] [facility] MEDICARE [facility]PO BLUE REPLACEMENT [facility] MEDIC[facility] PPO BLUE REPLACEMENT [facility] MEDIC[facility] PPO BLUE REPLACEMENT KRISTY [place] [facility] MEDICARE PPO BLUE REPLACEMENT [place]RISTY [place] [facility] MEDICARE PPO BLUE REPLACEMENT Care Teams President Celebrity Acquistion Relationship Specialty Start Date End Date Mary Wood MD [address] [place] [address] PCP - General Internal Medicine 04/15/24 Additional Source Comments The information contained in this document represents components of the legal health record. It is not the complete legal health record.[facility]
--- OUTSIDE RECORDS SUMMARY | 2025-06-03 13:06 | XMS_ITS | Encounter Summary ---
Author Organization [facility] Address [address] [place] [phone] Phone Care Team Providers Care Pipe Crew Foreman Name Role Phone Pcp, Unknown Primary Care Provider Mary Diane MD Primary Care Provider Encounter Details Date Type Department Care Team (Late st Contact Info) Description 04/03/2024 Ancillary Orders [address] [address] System, Provider Not In, [facility] [address] [address] Social History Tobacco Use Types Packs/Day Years [...] on filedocumented in this encounter Care Teams Pipe Crew Foreman Relationship Specialty Start Date End Date Pcp, Unknown PCP - General 03/28/23 04/14/24 Mary Wood MD [facility] [place] [address] PCP - General Internal Medicine 04/15/24 documented as of this encounter Additional Source Comments The information contained in this document represents components of the legal health record. It is not the complete legal health record.[facility]
== END 2025-06-03 12:37 | disposition home or self-care (01) ==
LOC: HO.HMCC 11:49
PROVIDERS: PCP Internal Medicine; Visit Provider Internal Medicine
DX: D50.9 Iron deficiency anemia, unspecified (principal); K25.7 Chronic gastric ulcer without hemorrhage or perforation; I10 Essential (primary) hypertension; E78.2 Mixed hyperlipidemia; E04.2 Nontoxic multinodular goiter; M85.852 Other specified disorders of bone density and structure, left thigh; F41.9 Anxiety disorder, unspecified; F32.A Depression, unspecified

== ENCOUNTER → 2025-06-03 11:49 | Outpatient (BNVA) | payer MEDICARE, SELFPAY | PROVIDERS: PCP Internal Medicine; Visit Provider Internal Medicine | DX: Z09 Encounter for follow-up examination after completed treatment for conditions other than malignant neoplasm (principal); K25.7 Chronic gastric ulcer without hemorrhage or perforation; I10 Essential (primary) hypertension; E78.2 Mixed hyperlipidemia; E04.2 Nontoxic multinodular goiter; M85.852 Other specified disorders of bone density and structure, left thigh; F41.9 Anxiety disorder, unspecified; F32.A Depression, unspecified; D50.9 Iron deficiency anemia, unspecified | CPT/HCPCS: 99495 ==